=== PATIENT | female | born 1950 | race Hispanic/Latino ===

== ENCOUNTER 2022-08-23 20:14 | Inpatient (IN) | payer OTHER ==
[~2022-08-23] VITALS: Ht 165.1 cm; Wt 47.0 kg
[2022-08-23] MEDS ORDERED: ACETAMINOPHEN 500 MG TABLET ONE (20:46)
[2022-08-23 20:54] LABS: BASOPHILS % (AUTO) 0.1 % (0.0-5.0); EOSINOPHILS % (AUTO) 0.1 % (0.0-8.0); HEMATOCRIT 27.6 % (36-48); LYMPHOCYTES % (AUTO) 9.7 % (21.0-51.0); MEAN CORPUSCULAR HEMOGLOBIN 29.8 pg (27.0-33.0); MEAN CORPUSCULAR HGB CONC 33.7 g/dL (32.0-36.0); MEAN CORPUSCULAR VOLUME 88.5 fL (79-99); MONOCYTES % (AUTO) 8.2 % (3.0-13.0); NEUTROPHILS % (AUTO) 80.7 % (40.0-77.0); PLATELET COUNT (AUTO) 251 K/uL (130-400); RED BLOOD CELL COUNT(AUTO) 3.12 MIL/uL (4.00-5.50); RED CELL DISTRIBUTION WIDTH 14.1 % (11.0-15.5); WHITE BLOOD COUNT (AUTO) 11.9 K/uL (4.8-10.8)
[2022-08-23] MEDS ORDERED: 0.9%NACL 1000ML 1,000 ML IV ONE (21:00)
[2022-08-23] MEDS ORDERED: ACETAMINOPHEN 325 MG TAB PO ONE (21:00)
[2022-08-23] MEDS ORDERED: ONDANSETRON 4MG INJ IVP ONE (21:00)
[2022-08-23 21:07] LABS: CREATININE 3.1 mg/dL (0.5-1.5); POTASSIUM 4.1 mmol/L (3.5-5.1)
[2022-08-23 21:11] LABS: TOTAL PROTEIN, SERUM 9.3 g/dL (6.0-8.3)
[2022-08-23] MEDS ORDERED: CEFTRIAXONE 1G VIAL IVP ONE (21:30)
[2022-08-23 22:01] LABS: APPEARANCE,URINE CLOUDY (CLEAR); COLOR,URINE YELLOW (YELLOW); LEUKOCYTE ESTERASE ,URINE MODERATE Leu/uL (NEGATIVE)
[2022-08-23 22:02] LABS: NITRATE,URINE Negative (NEGATIVE); PROTEIN,URINE >=300 mg/dL (NEGATIVE); UROBILINOGEN,URINE 0.2 mg/dL (0.2-1.0)
[2022-08-23 22:03] LABS: KETONES,URINE 5 mg/dL (NEGATIVE); OCCULT BLOOD,URINE LARGE (NEGATIVE)
[2022-08-23 22:04] LABS: BILIRUBIN,URINE Small mg/dL (NEGATIVE); GLUCOSE, URINE (UA) NEGATIVE (NEGATIVE)
[2022-08-23 22:15] LABS: BACTERIA,URINE Moderate /HPF (None Seen); WBC,URINE 26-50 /HPF (0-1)
[2022-08-23 22:16] LABS: SQUAMOUS EPITHELIAL CELL,UR Rare /HPF (0-2)
[2022-08-23] MEDS ORDERED: 0.9% NACL 250ML 250 ML IV ONE (22:30)
[2022-08-23] MEDS ORDERED: DiphenhydrAMINE HCL 50 MG/ML VIAL IV ONE (22:30)
[2022-08-23] MEDS ORDERED: ACETAMINOPHEN 325 MG TAB PO PRN (23:00)
[2022-08-23] MEDS ORDERED: DiphenhydrAMINE HCL 50 MG/ML VIAL IV PRN (23:00)
[2022-08-23] MEDS ORDERED: ACETAMINOPHEN WITH CODEINE 1 TAB TAB PO PRN (23:00)
[2022-08-23] MEDS ORDERED: MAG/ALUM/SIMETH 30 ML UDCUP PO PRN (23:00)
[2022-08-23] MEDS ORDERED: LACTULOSE 20 GM/30 ML UDCUP PO PRN (23:00)
[2022-08-23] MEDS ORDERED: MORPHINE 4 MG SYG IV PRN (23:00)
[2022-08-23] MEDS ORDERED: CEFTRIAXONE 1G VIAL IV SCH (23:00)
[2022-08-23] MEDS: 0.9%NACL 1000ML 1,000 ML IV SCH (23:11)
[2022-08-24] MEDS ORDERED: 0.9% NACL 500ML IV.SOLN 500 ML IV ONE ×2 (01:11→01:30)
[2022-08-24] MEDS: LEVOFLOXACIN 500 MG/D5W 100 ML 100 ML IV SCH (01:46)
[2022-08-24] MEDS: 0.9% NACL 250ML 250 ML IV SCH ×2 (02:01→03:09)
[2022-08-24 06:13] LABS: HEMATOCRIT 23.2 % (36-48); MEAN CORPUSCULAR HEMOGLOBIN 29.3 pg (27.0-33.0); MEAN CORPUSCULAR HGB CONC 32.3 g/dL (32.0-36.0); MEAN CORPUSCULAR VOLUME 90.6 fL (79-99); RED BLOOD CELL COUNT(AUTO) 2.56 MIL/uL (4.00-5.50); RED CELL DISTRIBUTION WIDTH 14.1 % (11.0-15.5); WHITE BLOOD COUNT (AUTO) 9.5 K/uL (4.8-10.8)
[2022-08-24 06:19] LABS: CREATININE 2.6 mg/dL (0.5-1.5); POTASSIUM 4.2 mmol/L (3.5-5.1)
[2022-08-24] MEDS: FAMOTIDINE 20MG VIAL IV SCH (08:55)
[2022-08-24] MEDS: ONDANSETRON 4MG INJ IV PRN (08:55)
[2022-08-24] MEDS: ENOXAPARIN SODIUM 30 MG/0.3 ML SQ SCH (08:55)
[2022-08-24 09:00] VITALS: BP 113/56
[2022-08-24] MEDS: 0.9%NACL 1000ML 1,000 ML IV SCH ×2 (09:00→19:00)
[2022-08-24 12:00] VITALS: BP 82/45
[2022-08-24 12:05] LABS: ABG BASE EXCESS -11.6 mmol/L (-2.0-3.0); ABG HCO3 10.7 mmol/L (21.0-28.0); ABG OXYGEN SATURATION 97.8 % (95.0-99.0); ABG PCO2 18 mmHg (32-45)
[2022-08-24 14:19] LABS: CREATININE 2.6 mg/dL (0.5-1.5); POTASSIUM 4.1 mmol/L (3.5-5.1)
[2022-08-24 14:30] LABS: % IRON SATURATION 17.5 % (22-44)
[2022-08-24 16:00] VITALS: BP 113/61
[2022-08-24 19:00] VITALS: BP 97/54
[2022-08-24] MEDS: IRON SUCROSE COMPLEX 100 MG/5 ML VIAL IVP SCH (19:22)
[2022-08-24] MEDS: ACETAMINOPHEN 325 MG TAB PO PRN (20:32)
[2022-08-24 23:49] VITALS: BP 92/50
[2022-08-25] VITALS (12 sets, daily range): BP systolic 92–147; BP diastolic 37–66
[2022-08-25] MEDS: LEVOFLOXACIN 500 MG/D5W 100 ML 100 ML IV SCH (00:09)
[2022-08-25] MEDS: 0.9%NACL 1000ML 1,000 ML IV SCH ×2 (04:38→15:00)
[2022-08-25 08:22] LABS: INR 1.23 (0.85-1.15); PROTHROMBIN TIME 13.2 SEC (9.6-11.6)
[2022-08-25 08:23] LABS: PARTIAL THROMBOPLASTIN TIME 35.9 SEC (26.3-35.5)
[2022-08-25] MEDS ORDERED: IRON SUCROSE COMPLEX 100 MG in 0.9%NACL 50ML 50 ML IV SCH (09:00)
[2022-08-25] MEDS: ENOXAPARIN SODIUM 30 MG/0.3 ML SQ SCH (09:00)
[2022-08-25] MEDS: MEROPENEM 500 MG VIAL IVP SCH ×2 (10:00→10:37)
[2022-08-25] MEDS: IRON SUCROSE COMPLEX 100 MG/5 ML VIAL IVP SCH (10:36)
[2022-08-25] MEDS: FAMOTIDINE 20MG VIAL IV SCH (10:37)
[2022-08-25] MEDS ORDERED: LIDOCAINE HCL 1% 20 ML VIAL ONE (14:21)
[2022-08-25] MEDS ORDERED: IODIXANOL 320 MG/ML 100 ML VIAL ONE (14:21)
[2022-08-25] MEDS ORDERED: FENTANYL CITRATE PF 50 MCG/1 ML 2ML VIAL ONE (14:22)
[2022-08-25] MEDS ORDERED: MIDAZOLAM HCL 1 MG/ML 2ML VIAL ONE (14:22)
[2022-08-25 15:37] LABS: APPEARANCE,URINE TURBID (CLEAR); BILIRUBIN,URINE NEGATIVE (NEGATIVE); COLOR,URINE LIGHT-ORANGE (YELLOW); GLUCOSE, URINE (UA) NEGATIVE (NEGATIVE); KETONES,URINE NEGATIVE (NEGATIVE); LEUKOCYTE ESTERASE ,URINE 500 Leu/uL (NEGATIVE); NITRATE,URINE NEGATIVE (NEGATIVE); OCCULT BLOOD,URINE LARGE (NEGATIVE); PROTEIN,URINE 70 mg/dL (NEGATIVE); UROBILINOGEN,URINE 0.2 mg/dL (0.2-1.0)
[2022-08-25 15:50] LABS: BACTERIA,URINE MOD /HPF (None Seen); MUCUS,URINE MANY LPF (None Seen); OTHER CASTS, URINE 153 /LPF (None Seen); RBC,URINE TNTC /HPF (0-1); TRANSITIONAL EPI CELLS,URINE FEW /HPF (None Seen); WBC,URINE TNTC /HPF (0-1)
[2022-08-25] MEDS: MEROPENEM 1 GM VIAL IVPB SCH (22:02)
[2022-08-25] MEDS: ACETAMINOPHEN 325 MG TAB PO PRN (22:03)
[2022-08-26] VITALS: BP 119/52
[2022-08-26] MEDS ORDERED: MEROPENEM 500 MG VIAL IVP SCH (02:00)
[2022-08-26 04:00] VITALS: BP 108/46
[2022-08-26 04:52] LABS: BASOPHILS % (AUTO) 0.2 % (0.0-5.0); EOSINOPHILS % (AUTO) 0.5 % (0.0-8.0); HEMATOCRIT 21.9 % (36-48); LYMPHOCYTES % (AUTO) 21.6 % (21.0-51.0); MEAN CORPUSCULAR HGB CONC 33.3 g/dL (32.0-36.0); MEAN CORPUSCULAR VOLUME 90.1 fL (79-99); MONOCYTES % (AUTO) 11.2 % (3.0-13.0); NEUTROPHILS % (AUTO) 63.2 % (40.0-77.0); PLATELET COUNT (AUTO) 139 K/uL (130-400); RED BLOOD CELL COUNT(AUTO) 2.43 MIL/uL (4.00-5.50); WHITE BLOOD COUNT (AUTO) 6.2 K/uL (4.8-10.8)
[2022-08-26 05:08] LABS: CREATININE 2.4 mg/dL (0.5-1.5); MAGNESIUM 1.4 mg/dL (1.80-2.40); PHOSPHORUS 5.1 mg/dL (2.5-4.9); POTASSIUM 3.2 mmol/L (3.5-5.1)
[2022-08-26] MEDS: MEROPENEM 1 GM VIAL IVPB SCH ×2 (06:37→19:58)
[2022-08-26 07:30] VITALS: BP 112/53
[2022-08-26] MEDS: IRON SUCROSE COMPLEX 100 MG/5 ML VIAL IVP SCH (09:01)
[2022-08-26] MEDS: FAMOTIDINE 20MG VIAL IV SCH (09:01)
[2022-08-26] MEDS: ENOXAPARIN SODIUM 30 MG/0.3 ML SQ SCH (09:02)
[2022-08-26 10:35] VITALS: BP 113/59
[2022-08-26 16:15] VITALS: BP 117/57
[2022-08-26] MEDS ORDERED: POTASSIUM CHLORIDE 20MEQ/100ML 100 ML IV PRN (17:30)
[2022-08-26] MEDS ORDERED: POTASSIUM CHLORIDE 10% ELIXIR 20 MEQ/15 ML UDCUP PO PRN (17:30)
[2022-08-26] MEDS ORDERED: LIDOCAINE HCL-MPF 1% 2ML VIAL IV PRN (17:30)
[2022-08-26] MEDS: KCL 20 MEQ ERTAB PO PRN ×3 (17:36→22:00)
[2022-08-26] MEDS: MAGNESIUM 2GM PREMIX 50ML 50 ML IV PRN (17:36)
[2022-08-26] MEDS: 0.9%NACL 1000ML 1,000 ML IV SCH (19:59)
[2022-08-26 20:00] VITALS: BP 111/55
[2022-08-27] VITALS: BP 114/61
[2022-08-27 04:39] LABS: BASOPHILS % (AUTO) 0.2 % (0.0-5.0); EOSINOPHILS % (AUTO) 0.2 % (0.0-8.0); HEMATOCRIT 21.4 % (36-48); MEAN CORPUSCULAR HEMOGLOBIN 30.1 pg (27.0-33.0); MEAN CORPUSCULAR HGB CONC 33.2 g/dL (32.0-36.0); MEAN CORPUSCULAR VOLUME 90.7 fL (79-99); MONOCYTES % (AUTO) 13.5 % (3.0-13.0); NEUTROPHILS % (AUTO) 46.9 % (40.0-77.0); PLATELET COUNT (AUTO) 120 K/uL (130-400); RED BLOOD CELL COUNT(AUTO) 2.36 MIL/uL (4.00-5.50); RED CELL DISTRIBUTION WIDTH 15.1 % (11.0-15.5); WHITE BLOOD COUNT (AUTO) 4.8 K/uL (4.8-10.8)
[2022-08-27 04:44] LABS: POTASSIUM 3.8 mmol/L (3.5-5.1)
[2022-08-27 05:04] VITALS: BP 102/59
[2022-08-27 08:00] VITALS: BP 98/57
[2022-08-27] MEDS: FAMOTIDINE 20MG VIAL IV SCH (08:42)
[2022-08-27] MEDS: IRON SUCROSE COMPLEX 100 MG/5 ML VIAL IVP SCH (08:42)
[2022-08-27] MEDS: MEROPENEM 1 GM VIAL IVPB SCH ×2 (08:43→20:08)
[2022-08-27] MEDS: ENOXAPARIN SODIUM 30 MG/0.3 ML SQ SCH (08:43)
[2022-08-27] MEDS: 0.9%NACL 1000ML 1,000 ML IV SCH ×2 (08:43→17:56)
[2022-08-27 12:00] VITALS: BP 120/65
[2022-08-27 16:00] VITALS: BP 108/61
[2022-08-27 19:52] VITALS: BP 121/62
[2022-08-27] MEDS: TRAZODONE HCL 100 MG TABLET PO SCH (20:08)
[2022-08-28] VITALS: BP 126/66
[2022-08-28] MEDS: 0.9%NACL 1000ML 1,000 ML IV SCH ×2 (02:17→17:19)
[2022-08-28 04:00] VITALS: BP 122/58
[2022-08-28 05:49] LABS: BASOPHILS % (AUTO) 0.2 % (0.0-5.0); EOSINOPHILS % (AUTO) 1.1 % (0.0-8.0); HEMATOCRIT 22.6 % (36-48); LYMPHOCYTES % (AUTO) 31.7 % (21.0-51.0); MEAN CORPUSCULAR HEMOGLOBIN 29.4 pg (27.0-33.0); MEAN CORPUSCULAR HGB CONC 31.9 g/dL (32.0-36.0); MEAN CORPUSCULAR VOLUME 92.2 fL (79-99); MONOCYTES % (AUTO) 12.5 % (3.0-13.0); NEUTROPHILS % (AUTO) 48.9 % (40.0-77.0); PLATELET COUNT (AUTO) 109 K/uL (130-400); RED BLOOD CELL COUNT(AUTO) 2.45 MIL/uL (4.00-5.50); WHITE BLOOD COUNT (AUTO) 4.6 K/uL (4.8-10.8)
[2022-08-28 06:00] LABS: CREATININE 1.6 mg/dL (0.5-1.5); POTASSIUM 3.7 mmol/L (3.5-5.1)
[2022-08-28] MEDS: KCL 20 MEQ ERTAB PO PRN ×2 (06:11→17:18)
[2022-08-28 08:00] VITALS: BP 105/58
[2022-08-28] MEDS: FAMOTIDINE 20MG VIAL IV SCH (08:58)
[2022-08-28] MEDS: IRON SUCROSE COMPLEX 100 MG/5 ML VIAL IVP SCH (08:58)
[2022-08-28] MEDS: MEROPENEM 1 GM VIAL IVPB SCH ×2 (08:58→20:27)
[2022-08-28] MEDS: ENOXAPARIN SODIUM 30 MG/0.3 ML SQ SCH (08:59)
[2022-08-28 12:00] VITALS: BP 106/52
[2022-08-28 16:00] VITALS: BP 103/57
[2022-08-28] MEDS: TRAZODONE HCL 100 MG TABLET PO SCH (20:27)
[2022-08-28 20:47] VITALS: BP 104/60
[2022-08-29] VITALS (7 sets, daily range): BP systolic 85–118; BP diastolic 48–67
[2022-08-29 04:47] LABS: BASOPHILS % (AUTO) 0.2 % (0.0-5.0); HEMATOCRIT 21.5 % (36-48); LYMPHOCYTES % (AUTO) 32.7 % (21.0-51.0); MEAN CORPUSCULAR HEMOGLOBIN 30.1 pg (27.0-33.0); MEAN CORPUSCULAR VOLUME 91.1 fL (79-99); MONOCYTES % (AUTO) 11.3 % (3.0-13.0); NEUTROPHILS % (AUTO) 49.4 % (40.0-77.0); PLATELET COUNT (AUTO) 105 K/uL (130-400); RED BLOOD CELL COUNT(AUTO) 2.36 MIL/uL (4.00-5.50); RED CELL DISTRIBUTION WIDTH 14.8 % (11.0-15.5); WHITE BLOOD COUNT (AUTO) 5.5 K/uL (4.8-10.8)
[2022-08-29 04:57] LABS: CREATININE 1.5 mg/dL (0.5-1.5); MAGNESIUM 1.4 mg/dL (1.80-2.40); PHOSPHORUS 2.8 mg/dL (2.5-4.9); POTASSIUM 4.4 mmol/L (3.5-5.1)
[2022-08-29] MEDS: 0.9%NACL 1000ML 1,000 ML IV SCH ×2 (05:16→08:42)
[2022-08-29] MEDS: MEROPENEM 1 GM VIAL IVPB SCH ×2 (08:40→20:50)
[2022-08-29] MEDS: FAMOTIDINE 20MG VIAL IV SCH (08:40)
[2022-08-29] MEDS: IRON SUCROSE COMPLEX 100 MG/5 ML VIAL IVP SCH (08:40)
[2022-08-29] MEDS: MAGNESIUM 2GM PREMIX 50ML 50 ML IV PRN (08:41)
[2022-08-29] MEDS: ENOXAPARIN SODIUM 30 MG/0.3 ML SQ SCH (08:43)
[2022-08-29] MEDS: TRAZODONE HCL 100 MG TABLET PO SCH (20:50)
[2022-08-30 01:34] VITALS: BP 117/57
[2022-08-30 04:20] VITALS: BP 111/56
[2022-08-30 04:46] LABS: BASOPHILS % (AUTO) 0.3 % (0.0-5.0); EOSINOPHILS % (AUTO) 3.8 % (0.0-8.0); MEAN CORPUSCULAR HEMOGLOBIN 29.7 pg (27.0-33.0); MEAN CORPUSCULAR HGB CONC 32.7 g/dL (32.0-36.0); MONOCYTES % (AUTO) 11.8 % (3.0-13.0); NEUTROPHILS % (AUTO) 34.8 % (40.0-77.0); PLATELET COUNT (AUTO) 94 K/uL (130-400); RED BLOOD CELL COUNT(AUTO) 2.22 MIL/uL (4.00-5.50); RED CELL DISTRIBUTION WIDTH 14.6 % (11.0-15.5); WHITE BLOOD COUNT (AUTO) 3.9 K/uL (4.8-10.8)
[2022-08-30 04:48] LABS: HEMATOCRIT 20.2 % (36-48)
[2022-08-30] MEDS: 0.9%NACL 1000ML 1,000 ML IV SCH ×2 (05:00→05:58)
[2022-08-30 05:04] LABS: CREATININE 1.5 mg/dL (0.5-1.5)
[2022-08-30] MEDS: MEROPENEM 1 GM VIAL IVPB SCH ×2 (05:58→21:45)
[2022-08-30 08:00] VITALS: BP 105/50
[2022-08-30 08:34] LABS: HEMATOCRIT 21.1 % (36-48)
[2022-08-30] MEDS: FAMOTIDINE 20MG VIAL IV SCH (09:53)
[2022-08-30] MEDS: IRON SUCROSE COMPLEX 100 MG/5 ML VIAL IVP SCH (09:53)
[2022-08-30] MEDS: ENOXAPARIN SODIUM 30 MG/0.3 ML SQ SCH (09:54)
[2022-08-30 12:00] VITALS: BP 131/63
[2022-08-30 16:00] VITALS: BP 105/54
[2022-08-30 20:00] VITALS: BP 116/51
[2022-08-30] MEDS: TRAZODONE HCL 100 MG TABLET PO SCH (21:45)
[2022-08-30] MEDS: MAGNESIUM 2GM PREMIX 50ML 50 ML IV PRN (21:46)
[2022-08-31] VITALS: BP 113/61
[2022-08-31 04:00] VITALS: BP 114/59
[2022-08-31 04:32] LABS: BASOPHILS % (AUTO) 0.2 % (0.0-5.0); EOSINOPHILS % (AUTO) 3.5 % (0.0-8.0); HEMATOCRIT 21.5 % (36-48); MEAN CORPUSCULAR HEMOGLOBIN 30.2 pg (27.0-33.0); MEAN CORPUSCULAR HGB CONC 32.6 g/dL (32.0-36.0); MEAN CORPUSCULAR VOLUME 92.7 fL (79-99); MONOCYTES % (AUTO) 10.4 % (3.0-13.0); NEUTROPHILS % (AUTO) 33.4 % (40.0-77.0); PLATELET COUNT (AUTO) 119 K/uL (130-400); RED BLOOD CELL COUNT(AUTO) 2.32 MIL/uL (4.00-5.50); RED CELL DISTRIBUTION WIDTH 14.7 % (11.0-15.5)
[2022-08-31 04:55] LABS: % IRON SATURATION 111.6 % (22-44)
[2022-08-31 05:10] LABS: CARBON DIOXIDE 20 mmol/L (21-32); CHLORIDE 109 mmol/L (101-111); CREATININE 1.3 mg/dL (0.5-1.5); GLOMERULAR FILTR. RATE CALC 43 mL/min (>60); GLUCOSE,RANDOM 83 mg/dL (70-105); POTASSIUM 4.3 mmol/L (3.5-5.1); SODIUM SERUM 136 mmol/L (136-145); THYROID STIMULATING HORMONE 7.13 uIU/mL (0.36-3.74); UREA NITROGEN, BLOOD 15 mg/dL (7-18)
[2022-08-31] MEDS: MEROPENEM 1 GM VIAL IVPB SCH ×2 (06:02→21:53)
[2022-08-31 08:00] VITALS: BP 108/52
[2022-08-31] MEDS: IRON SUCROSE COMPLEX 100 MG/5 ML VIAL IVP SCH (09:00)
[2022-08-31] MEDS: FAMOTIDINE 20MG VIAL IV SCH (09:00)
[2022-08-31] MEDS: ENOXAPARIN SODIUM 30 MG/0.3 ML SQ SCH (09:00)
[2022-08-31 12:00] VITALS: BP 91/53
[2022-08-31] MEDS ORDERED: DULOXETINE HCL 30 MG CAP PO SCH (14:30)
[2022-08-31 16:00] VITALS: BP 99/57
[2022-08-31 20:00] VITALS: BP 133/64
[2022-08-31] MEDS: TRAZODONE HCL 100 MG TABLET PO SCH (21:53)
[2022-08-31] MEDS: BISACODYL 5 MG TABLET.DR PO SCH (21:53)
[2022-09-01] VITALS: BP 129/67
[2022-09-01 04:00] VITALS: BP 132/72
[2022-09-01 04:36] LABS: BASOPHILS % (AUTO) 0.1 % (0.0-5.0); EOSINOPHILS % (AUTO) 1.7 % (0.0-8.0); HEMATOCRIT 24.5 % (36-48); LYMPHOCYTES % (AUTO) 26.6 % (21.0-51.0); MEAN CORPUSCULAR HEMOGLOBIN 30.8 pg (27.0-33.0); MEAN CORPUSCULAR HGB CONC 33.5 g/dL (32.0-36.0); MEAN CORPUSCULAR VOLUME 92.1 fL (79-99); MONOCYTES % (AUTO) 6.4 % (3.0-13.0); NEUTROPHILS % (AUTO) 63.5 % (40.0-77.0); PLATELET COUNT (AUTO) 133 K/uL (130-400); RED BLOOD CELL COUNT(AUTO) 2.66 MIL/uL (4.00-5.50); RED CELL DISTRIBUTION WIDTH 14.2 % (11.0-15.5); WHITE BLOOD COUNT (AUTO) 6.9 K/uL (4.8-10.8)
[2022-09-01 04:44] LABS: CREATININE 1.6 mg/dL (0.5-1.5); POTASSIUM 4.2 mmol/L (3.5-5.1)
[2022-09-01] MEDS: LEVOTHYROXINE 25 MCG TABLET PO SCH (06:34)
[2022-09-01 07:45] VITALS: BP 100/57
[2022-09-01] MEDS: ONDANSETRON 4MG INJ IV PRN (08:21)
[2022-09-01] MEDS: MEROPENEM 1 GM VIAL IVPB SCH ×2 (08:40→20:14)
[2022-09-01] MEDS: IRON SUCROSE COMPLEX 100 MG/5 ML VIAL IVP SCH (08:40)
[2022-09-01] MEDS: FAMOTIDINE 20MG VIAL IV SCH (08:40)
[2022-09-01] MEDS: DULOXETINE HCL 30 MG CAP PO SCH (08:41)
[2022-09-01] MEDS: ENOXAPARIN SODIUM 30 MG/0.3 ML SQ SCH (08:41)
[2022-09-01] MEDS: DRONABINOL 2.5 MG CAP PO SCH (08:41)
[2022-09-01] MEDS: BISACODYL 5 MG TABLET.DR PO SCH ×2 (09:00→20:14)
[2022-09-01 10:45] VITALS: BP 107/54
[2022-09-01 15:30] VITALS: BP 110/56
[2022-09-01 20:00] VITALS: BP 129/63
[2022-09-01] MEDS: TRAZODONE HCL 100 MG TABLET PO SCH (20:14)
[2022-09-02] VITALS (7 sets, daily range): BP systolic 98–119; BP diastolic 45–76
[2022-09-02] MEDS: LEVOTHYROXINE 25 MCG TABLET PO SCH (06:24)
[2022-09-02] MEDS: MEROPENEM 1 GM VIAL IVPB SCH ×2 (06:25→21:27)
[2022-09-02] MEDS: BISACODYL 5 MG TABLET.DR PO SCH ×2 (09:00→21:00)
[2022-09-02] MEDS: FAMOTIDINE 20MG VIAL IV SCH (09:32)
[2022-09-02] MEDS: IRON SUCROSE COMPLEX 100 MG/5 ML VIAL IVP SCH (09:32)
[2022-09-02] MEDS: DULOXETINE HCL 30 MG CAP PO SCH (09:33)
[2022-09-02] MEDS: DRONABINOL 2.5 MG CAP PO SCH (09:33)
[2022-09-02] MEDS: ENOXAPARIN SODIUM 30 MG/0.3 ML SQ SCH (09:33)
[2022-09-02 17:11] LABS: BASOPHILS % (AUTO) 0.2 % (0.0-5.0); EOSINOPHILS % (AUTO) 2.3 % (0.0-8.0); HEMATOCRIT 26.7 % (36-48); LYMPHOCYTES % (AUTO) 37.9 % (21.0-51.0); MEAN CORPUSCULAR HEMOGLOBIN 30.8 pg (27.0-33.0); MEAN CORPUSCULAR VOLUME 93.4 fL (79-99); MONOCYTES % (AUTO) 8.8 % (3.0-13.0); NEUTROPHILS % (AUTO) 49.5 % (40.0-77.0); PLATELET COUNT (AUTO) 163 K/uL (130-400); RED BLOOD CELL COUNT(AUTO) 2.86 MIL/uL (4.00-5.50); WHITE BLOOD COUNT (AUTO) 5.3 K/uL (4.8-10.8)
[2022-09-02 17:19] LABS: CREATININE 1.5 mg/dL (0.5-1.5); POTASSIUM 4.1 mmol/L (3.5-5.1)
[2022-09-02 17:23] LABS: ALBUMIN 1.6 g/dL (3.5-5.0); TOTAL PROTEIN, SERUM 7.2 g/dL (6.0-8.3)
[2022-09-02] MEDS: TRAZODONE HCL 100 MG TABLET PO SCH (21:27)
[2022-09-03] VITALS (7 sets, daily range): BP systolic 103–138; BP diastolic 55–69
[2022-09-03 05:36] LABS: BASOPHILS % (AUTO) 0.3 % (0.0-5.0); HEMATOCRIT 26.2 % (36-48); LYMPHOCYTES % (AUTO) 38.4 % (21.0-51.0); MEAN CORPUSCULAR HGB CONC 33.6 g/dL (32.0-36.0); MEAN CORPUSCULAR VOLUME 92.3 fL (79-99); MONOCYTES % (AUTO) 7.7 % (3.0-13.0); NEUTROPHILS % (AUTO) 50.6 % (40.0-77.0); PLATELET COUNT (AUTO) 170 K/uL (130-400); RED BLOOD CELL COUNT(AUTO) 2.84 MIL/uL (4.00-5.50); RED CELL DISTRIBUTION WIDTH 13.9 % (11.0-15.5); WHITE BLOOD COUNT (AUTO) 5.9 K/uL (4.8-10.8)
[2022-09-03 05:51] LABS: ALBUMIN 1.6 g/dL (3.5-5.0); CREATININE 1.3 mg/dL (0.5-1.5); POTASSIUM 4.5 mmol/L (3.5-5.1); TOTAL PROTEIN, SERUM 7.2 g/dL (6.0-8.3)
[2022-09-03] MEDS: LEVOTHYROXINE 25 MCG TABLET PO SCH (06:33)
[2022-09-03] MEDS: MEROPENEM 1 GM VIAL IVPB SCH ×2 (06:33→19:55)
[2022-09-03] MEDS: ENOXAPARIN SODIUM 30 MG/0.3 ML SQ SCH (08:09)
[2022-09-03] MEDS: FAMOTIDINE 20MG VIAL IV SCH (08:09)
[2022-09-03] MEDS: IRON SUCROSE COMPLEX 100 MG/5 ML VIAL IVP SCH (08:09)
[2022-09-03] MEDS: DULOXETINE HCL 30 MG CAP PO SCH (08:10)
[2022-09-03] MEDS: DRONABINOL 2.5 MG CAP PO SCH (08:10)
[2022-09-03] MEDS: BISACODYL 5 MG TABLET.DR PO SCH ×2 (08:10→19:20)
[2022-09-03] MEDS: TRAZODONE HCL 100 MG TABLET PO SCH (19:55)
[2022-09-04] VITALS (7 sets, daily range): BP systolic 86–105; BP diastolic 46–54
[2022-09-04] MEDS: LEVOTHYROXINE 25 MCG TABLET PO SCH (06:28)
[2022-09-04] MEDS: MEROPENEM 1 GM VIAL IVPB SCH ×2 (06:28→18:50)
[2022-09-04] MEDS: DULOXETINE HCL 30 MG CAP PO SCH (09:00)
[2022-09-04] MEDS: BISACODYL 5 MG TABLET.DR PO SCH ×2 (11:24→21:45)
[2022-09-04] MEDS: FAMOTIDINE 20MG VIAL IV SCH (11:24)
[2022-09-04] MEDS: DRONABINOL 2.5 MG CAP PO SCH ×3 (11:24→21:45)
[2022-09-04] MEDS: IRON SUCROSE COMPLEX 100 MG/5 ML VIAL IVP SCH (11:24)
[2022-09-04] MEDS: ENOXAPARIN SODIUM 30 MG/0.3 ML SQ SCH (11:25)
[2022-09-04] MEDS ORDERED: EPOETIN ALFA-EPBX (NON-ESRD) 10,000 UNIT/ML VIAL SQ SCH (11:30)
[2022-09-04] MEDS ORDERED: 0.9%NACL 1000ML 1,000 ML IV SCH (11:30)
[2022-09-04] MEDS ORDERED: COMPOUND IV REFRIGERATED 1 EACH IVSOLN MISC PRN (11:30)
[2022-09-04 11:53] LABS: BASOPHILS % (AUTO) 0.5 % (0.0-5.0); EOSINOPHILS % (AUTO) 3.4 % (0.0-8.0); HEMATOCRIT 27.6 % (36-48); LYMPHOCYTES % (AUTO) 41.7 % (21.0-51.0); MEAN CORPUSCULAR HEMOGLOBIN 30.8 pg (27.0-33.0); MEAN CORPUSCULAR HGB CONC 31.9 g/dL (32.0-36.0); MEAN CORPUSCULAR VOLUME 96.5 fL (79-99); MONOCYTES % (AUTO) 8.7 % (3.0-13.0); PLATELET COUNT (AUTO) 185 K/uL (130-400); RED BLOOD CELL COUNT(AUTO) 2.86 MIL/uL (4.00-5.50); RED CELL DISTRIBUTION WIDTH 14.5 % (11.0-15.5); WHITE BLOOD COUNT (AUTO) 4.4 K/uL (4.8-10.8)
[2022-09-04 12:01] LABS: CREATININE 1.2 mg/dL (0.5-1.5); POTASSIUM 4.4 mmol/L (3.5-5.1)
[2022-09-04 12:04] LABS: MAGNESIUM 1.8 mg/dL (1.80-2.40); PHOSPHORUS 3.1 mg/dL (2.5-4.9)
[2022-09-04 12:14] LABS: % IRON SATURATION 70.1 % (22-44)
[2022-09-04] MEDS: FAMOTIDINE 20MG TAB PO SCH (14:16)
[2022-09-04] MEDS: FOLIC ACID 5 MG/ML VIAL IV SCH (14:44)
[2022-09-04] MEDS: TRAZODONE HCL 100 MG TABLET PO SCH (21:45)
[2022-09-05] VITALS: BP 101/52
[2022-09-05 03:45] VITALS: BP 105/53
[2022-09-05 05:48] LABS: BASOPHILS % (AUTO) 0.2 % (0.0-5.0); EOSINOPHILS % (AUTO) 3.1 % (0.0-8.0); HEMATOCRIT 26.7 % (36-48); LYMPHOCYTES % (AUTO) 36.5 % (21.0-51.0); MEAN CORPUSCULAR HEMOGLOBIN 31.2 pg (27.0-33.0); MEAN CORPUSCULAR HGB CONC 32.2 g/dL (32.0-36.0); MEAN CORPUSCULAR VOLUME 96.7 fL (79-99); NEUTROPHILS % (AUTO) 50.6 % (40.0-77.0); PLATELET COUNT (AUTO) 176 K/uL (130-400); RED BLOOD CELL COUNT(AUTO) 2.76 MIL/uL (4.00-5.50); RED CELL DISTRIBUTION WIDTH 14.7 % (11.0-15.5); WHITE BLOOD COUNT (AUTO) 5.2 K/uL (4.8-10.8)
[2022-09-05 05:59] LABS: ALBUMIN 1.7 g/dL (3.5-5.0); CREATININE 1.1 mg/dL (0.5-1.5); POTASSIUM 4.7 mmol/L (3.5-5.1)
[2022-09-05] MEDS: MEROPENEM 1 GM VIAL IVPB SCH ×2 (06:43→18:23)
[2022-09-05] MEDS: LEVOTHYROXINE 25 MCG TABLET PO SCH (06:43)
[2022-09-05 08:00] VITALS: BP 122/58
[2022-09-05] MEDS: FOLIC ACID 5 MG/ML VIAL IV SCH (10:06)
[2022-09-05] MEDS: BISACODYL 5 MG TABLET.DR PO SCH ×2 (10:28→20:57)
[2022-09-05] MEDS: DRONABINOL 2.5 MG CAP PO SCH ×2 (10:29→20:57)
[2022-09-05] MEDS: FAMOTIDINE 20MG TAB PO SCH (10:29)
[2022-09-05] MEDS: DULOXETINE HCL 30 MG CAP PO SCH (10:29)
[2022-09-05] MEDS: ENOXAPARIN SODIUM 30 MG/0.3 ML SQ SCH (10:29)
[2022-09-05 11:00] VITALS: BP 74/43
[2022-09-05 16:00] VITALS: BP 114/63
[2022-09-05 20:18] VITALS: BP 109/56
[2022-09-05] MEDS: TRAZODONE HCL 100 MG TABLET PO SCH (20:57)
[2022-09-06 00:03] VITALS: BP 91/51
[2022-09-06 04:11] VITALS: BP 92/55
[2022-09-06] MEDS: LEVOTHYROXINE 25 MCG TABLET PO SCH (06:23)
[2022-09-06 07:00] VITALS: BP 100/57
[2022-09-06] MEDS: ENOXAPARIN SODIUM 30 MG/0.3 ML SQ SCH (08:30)
[2022-09-06] MEDS: MEROPENEM 1 GM VIAL IVPB SCH ×2 (08:30→19:58)
[2022-09-06] MEDS: BISACODYL 5 MG TABLET.DR PO SCH ×2 (08:31→19:58)
[2022-09-06] MEDS: DULOXETINE HCL 30 MG CAP PO SCH (08:31)
[2022-09-06] MEDS: FAMOTIDINE 20MG TAB PO SCH (08:31)
[2022-09-06] MEDS: DRONABINOL 2.5 MG CAP PO SCH ×2 (08:31→19:58)
[2022-09-06] MEDS: FOLIC ACID 5 MG/ML VIAL IV SCH (10:36)
[2022-09-06 11:00] VITALS: BP 85/46
[2022-09-06 16:00] VITALS: BP 103/55
[2022-09-06] MEDS: TRAZODONE HCL 100 MG TABLET PO SCH (19:58)
[2022-09-06 20:00] VITALS: BP 108/61
[2022-09-07] VITALS (7 sets, daily range): BP systolic 80–114; BP diastolic 45–64
[2022-09-07] MEDS: LEVOTHYROXINE 25 MCG TABLET PO SCH (05:30)
[2022-09-07 06:17] LABS: BASOPHILS % (AUTO) 0.4 % (0.0-5.0); EOSINOPHILS % (AUTO) 4.7 % (0.0-8.0); HEMATOCRIT 29.2 % (36-48); LYMPHOCYTES % (AUTO) 39.9 % (21.0-51.0); MEAN CORPUSCULAR HEMOGLOBIN 31.5 pg (27.0-33.0); MEAN CORPUSCULAR HGB CONC 31.2 g/dL (32.0-36.0); MONOCYTES % (AUTO) 11.9 % (3.0-13.0); NEUTROPHILS % (AUTO) 41.7 % (40.0-77.0); PLATELET COUNT (AUTO) 209 K/uL (130-400); RED BLOOD CELL COUNT(AUTO) 2.89 MIL/uL (4.00-5.50); RED CELL DISTRIBUTION WIDTH 15.3 % (11.0-15.5); WHITE BLOOD COUNT (AUTO) 4.9 K/uL (4.8-10.8)
[2022-09-07 06:41] LABS: CREATININE 1.3 mg/dL (0.5-1.5)
[2022-09-07] MEDS: FOLIC ACID 5 MG/ML VIAL IV SCH (08:09)
[2022-09-07] MEDS: DULOXETINE HCL 30 MG CAP PO SCH (08:10)
[2022-09-07] MEDS: DRONABINOL 2.5 MG CAP PO SCH ×2 (08:10→19:22)
[2022-09-07] MEDS: ENOXAPARIN SODIUM 30 MG/0.3 ML SQ SCH (08:10)
[2022-09-07] MEDS: BISACODYL 5 MG TABLET.DR PO SCH ×2 (08:10→19:22)
[2022-09-07] MEDS: FAMOTIDINE 20MG TAB PO SCH (08:10)
[2022-09-07] MEDS: MEROPENEM 1 GM VIAL IVPB SCH ×2 (08:11→19:22)
[2022-09-07] MEDS: TRAZODONE HCL 100 MG TABLET PO SCH (19:22)
[2022-09-08 04:13] VITALS: BP 110/59
[2022-09-08] MEDS: LEVOTHYROXINE 25 MCG TABLET PO SCH (05:27)
[2022-09-08 08:00] VITALS: BP_SYST 111; BP_SYST 143; BP_DIAS 60; BP_DIAS 76
[2022-09-08] MEDS: DULOXETINE HCL 30 MG CAP PO SCH (08:16)
[2022-09-08] MEDS: DRONABINOL 2.5 MG CAP PO SCH (08:16)
[2022-09-08] MEDS: BISACODYL 5 MG TABLET.DR PO SCH (08:16)
[2022-09-08] MEDS: ENOXAPARIN SODIUM 30 MG/0.3 ML SQ SCH (08:16)
[2022-09-08] MEDS: FAMOTIDINE 20MG TAB PO SCH (08:16)
[2022-09-08] MEDS: MEROPENEM 1 GM VIAL IVPB SCH (08:17)
[2022-09-08] MEDS: FOLIC ACID 5 MG/ML VIAL IV SCH (11:12)
[2022-09-08 11:42] VITALS: BP 103/58
[2022-09-08] MEDS ORDERED: DULO30CA2 PO (15:14)
[2022-09-08] MEDS ORDERED: LEVO25TA9 PO (15:14)
[2022-09-08 16:00] VITALS: BP 107/58
== END 2022-09-08 16:25 | disposition home or self-care (01) | DRG 871 ==
LOC: EDH 20:14 → EDHIP 20:15 → 4CH 08-24 04:31 → 3CH 09-04 16:45
PROVIDERS: ADMIT Internal Medicine; ATTEND Internal Medicine
PROC: 0T9030Z Drainage of Right Kidney with Drainage Device, Percutaneous Approach (ICD-10-PCS; principal; 2022-08-25)
PROC: 30233N1 Transfusion of Nonautologous Red Blood Cells into Peripheral Vein, Percutaneous Approach (ICD-10-PCS; 2022-08-31)
DX: A41.51 Sepsis due to Escherichia coli [E. coli] (principal); E43 Unspecified severe protein-calorie malnutrition; E87.1 Hypo-osmolality and hyponatremia; N17.9 Acute kidney failure, unspecified; Z68.1 Body mass index [BMI] 19.9 or less, adult; Z20.822 Contact with and (suspected) exposure to COVID-19; E44.0 Moderate protein-calorie malnutrition; N13.6 Pyonephrosis; Z16.12 Extended spectrum beta lactamase (ESBL) resistance; K43.9 Ventral hernia without obstruction or gangrene; I12.9 Hypertensive chronic kidney disease with stage 1 through stage 4 chronic kidney disease, or unspecified chronic kidney disease; N18.9 Chronic kidney disease, unspecified; D50.9 Iron deficiency anemia, unspecified; F32.A Depression, unspecified; E03.9 Hypothyroidism, unspecified; D63.0 Anemia in neoplastic disease; R31.0 Gross hematuria; Z79.899 Other long term (current) drug therapy; Z91.199 Patient's noncompliance with other medical treatment and regimen due to unspecified reason; Z93.3 Colostomy status; Z85.048 Personal history of other malignant neoplasm of rectum, rectosigmoid junction, and anus; Z92.3 Personal history of irradiation; Z93.6 Other artificial openings of urinary tract status
CPT/HCPCS: 10030; 36415; 36430; 36600; 50430; 50432; 71045; 74176; 76770; 80048; 80053; 81001; 82040; 82378; 82607; 82728; 82746; 82803; 82948; 83540; 83550; 83605; 83735; 83930; 83935; 84100; 84134; 84145; 84300; 84443; 84484; 84702; 85014; 85018; 85025; 85027; 85045; 85610; 85730; 86304; 86305; 86850; 86900; 86901; 86923; 87040; 87077; 87088; 87186; 87635; 87804; 93005; 97039; 99156; 99291; C1894; C9803; G0378; J0696; J1200; J1644; J1650; J1756; J1956; J2185; J2250; J2270; J2405; J3010; J3475; J3490; J7030; J7040; J7050; P9016; Q0167; Q9967

== ENCOUNTER 2022-09-16 08:21 | Emergency (ER) | payer OTHER ==
[~2022-09-16] VITALS: Ht 152.4 cm; Wt 45.4 kg
[~2022-09-16 08:21] MED LIST: DULO30CA2 PO; LEVO25TA9 PO
[2022-09-16 08:52] LABS: BASOPHILS % (AUTO) 0.4 % (0.0-5.0); EOSINOPHILS % (AUTO) 7.5 % (0.0-8.0); HEMATOCRIT 34.6 % (36-48); LYMPHOCYTES % (AUTO) 50.3 % (21.0-51.0); MEAN CORPUSCULAR HEMOGLOBIN 31.4 pg (27.0-33.0); MEAN CORPUSCULAR HGB CONC 31.8 g/dL (32.0-36.0); MEAN CORPUSCULAR VOLUME 98.9 fL (79-99); MONOCYTES % (AUTO) 11.6 % (3.0-13.0); PLATELET COUNT (AUTO) 203 K/uL (130-400); RED CELL DISTRIBUTION WIDTH 15.4 % (11.0-15.5); WHITE BLOOD COUNT (AUTO) 4.9 K/uL (4.8-10.8)
[2022-09-16 09:03] VITALS: BP 123/67
[2022-09-16 09:30] LABS: ALBUMIN 2.6 g/dL (3.5-5.0); CREATININE 1.4 mg/dL (0.5-1.5); POTASSIUM 3.9 mmol/L (3.5-5.1); TOTAL PROTEIN, SERUM 8.4 g/dL (6.0-8.3)
== END 2022-09-16 10:34 | disposition home or self-care (01) ==
LOC: EDH 08:21
DX: K94.09 Other complications of colostomy (principal); Z79.899 Other long term (current) drug therapy; Z88.1 Allergy status to other antibiotic agents
CPT/HCPCS: 36415; 80053; 85025

== ENCOUNTER 2022-09-25 11:27 | Inpatient (IN) | payer OTHER ==
[~2022-09-25] VITALS: Ht 152.4 cm; Wt 44.1 kg
[2022-09-25 13:46] LABS: BASOPHILS % (AUTO) 0.2 % (0.0-5.0); EOSINOPHILS % (AUTO) 1.1 % (0.0-8.0); HEMATOCRIT 32.7 % (36-48); LYMPHOCYTES % (AUTO) 18.6 % (21.0-51.0); MEAN CORPUSCULAR HEMOGLOBIN 31.5 pg (27.0-33.0); MEAN CORPUSCULAR HGB CONC 32.4 g/dL (32.0-36.0); MEAN CORPUSCULAR VOLUME 97.3 fL (79-99); MONOCYTES % (AUTO) 9.3 % (3.0-13.0); NEUTROPHILS % (AUTO) 70.1 % (40.0-77.0); PLATELET COUNT (AUTO) 201 K/uL (130-400); RED BLOOD CELL COUNT(AUTO) 3.36 MIL/uL (4.00-5.50); RED CELL DISTRIBUTION WIDTH 14.1 % (11.0-15.5); WHITE BLOOD COUNT (AUTO) 9.6 K/uL (4.8-10.8)
[2022-09-25 13:53] LABS: APPEARANCE,URINE TURBID (CLEAR); BILIRUBIN,URINE NEGATIVE (NEGATIVE); COLOR,URINE LIGHT-ORANGE (YELLOW); GLUCOSE, URINE (UA) NEGATIVE (NEGATIVE); KETONES,URINE NEGATIVE (NEGATIVE); LEUKOCYTE ESTERASE ,URINE 500 Leu/uL (NEGATIVE); NITRATE,URINE 2+ (NEGATIVE); OCCULT BLOOD,URINE LARGE (NEGATIVE); PROTEIN,URINE 100 mg/dL (NEGATIVE); UROBILINOGEN,URINE 0.2 mg/dL (0.2-1.0)
[2022-09-25 14:04] LABS: CREATININE 1.6 mg/dL (0.5-1.5); POTASSIUM 4.6 mmol/L (3.5-5.1)
[2022-09-25 14:08] LABS: ALBUMIN 2.4 g/dL (3.5-5.0); TOTAL PROTEIN, SERUM 8.8 g/dL (6.0-8.3)
[2022-09-25 14:12] LABS: BACTERIA,URINE MANY /HPF (None Seen); MUCUS,URINE RARE LPF (None Seen); RBC,URINE TNTC /HPF (0-1); WBC,URINE TNTC /HPF (0-1); YEAST,URINE BUDDING FEW /HPF (None Seen)
[2022-09-25] MEDS ORDERED: MEROPENEM 1 GM VIAL IVP SCH (16:00)
[2022-09-25] MEDS ORDERED: 0.9%NACL 1000ML 1,000 ML IV ONE (17:00)
[2022-09-25] MEDS ORDERED: ACETAMINOPHEN 500 MG TABLET PO PRN (17:00)
[2022-09-25 17:47] LABS: HEMOGLOBIN A1C 5.5 % (4.0-6.0)
[2022-09-26] MEDS: MEROPENEM 1 GM VIAL IVP SCH ×2 (04:01→16:19)
[2022-09-26 08:00] LABS: BASOPHILS % (AUTO) 0.3 % (0.0-5.0); EOSINOPHILS % (AUTO) 2.4 % (0.0-8.0); HEMATOCRIT 30.5 % (36-48); LYMPHOCYTES % (AUTO) 21.9 % (21.0-51.0); MEAN CORPUSCULAR HEMOGLOBIN 32.1 pg (27.0-33.0); MEAN CORPUSCULAR HGB CONC 32.8 g/dL (32.0-36.0); MEAN CORPUSCULAR VOLUME 97.8 fL (79-99); MONOCYTES % (AUTO) 10.7 % (3.0-13.0); NEUTROPHILS % (AUTO) 63.6 % (40.0-77.0); PLATELET COUNT (AUTO) 185 K/uL (130-400); RED BLOOD CELL COUNT(AUTO) 3.12 MIL/uL (4.00-5.50); WHITE BLOOD COUNT (AUTO) 7.1 K/uL (4.8-10.8)
[2022-09-26 08:12] LABS: CREATININE 1.5 mg/dL (0.5-1.5); MAGNESIUM 1.7 mg/dL (1.80-2.40); POTASSIUM 4.3 mmol/L (3.5-5.1)
[2022-09-26] MEDS: ENOXAPARIN SODIUM 30 MG/0.3 ML SQ SCH (08:43)
[2022-09-26] MEDS ORDERED: MAGNESIUM 2GM PREMIX 50ML 50 ML IV PRN (09:30)
[2022-09-26 09:45] VITALS: BP 94/68
[2022-09-26] MEDS: 0.9%NACL 1000ML 1,000 ML IV SCH (15:55)
[2022-09-26 16:00] VITALS: BP 123/67
[2022-09-26 20:00] VITALS: BP 116/66
[2022-09-27] VITALS: BP 140/73
[2022-09-27 04:00] VITALS: BP 116/63
[2022-09-27] MEDS: MEROPENEM 1 GM VIAL IVP SCH (04:59)
[2022-09-27] MEDS: 0.9%NACL 1000ML 1,000 ML IV SCH (05:03)
[2022-09-27 05:54] LABS: BASOPHILS % (AUTO) 0.4 % (0.0-5.0); EOSINOPHILS % (AUTO) 3.3 % (0.0-8.0); HEMATOCRIT 30.8 % (36-48); LYMPHOCYTES % (AUTO) 21.9 % (21.0-51.0); MEAN CORPUSCULAR HEMOGLOBIN 31.6 pg (27.0-33.0); MEAN CORPUSCULAR HGB CONC 33.1 g/dL (32.0-36.0); MEAN CORPUSCULAR VOLUME 95.4 fL (79-99); MONOCYTES % (AUTO) 10.7 % (3.0-13.0); NEUTROPHILS % (AUTO) 62.5 % (40.0-77.0); PLATELET COUNT (AUTO) 187 K/uL (130-400); RED BLOOD CELL COUNT(AUTO) 3.23 MIL/uL (4.00-5.50); RED CELL DISTRIBUTION WIDTH 13.8 % (11.0-15.5); WHITE BLOOD COUNT (AUTO) 5.1 K/uL (4.8-10.8)
[2022-09-27 06:13] LABS: CREATININE 1.5 mg/dL (0.5-1.5); MAGNESIUM 2.3 mg/dL (1.80-2.40); POTASSIUM 4.7 mmol/L (3.5-5.1)
[2022-09-27 06:14] LABS: TOTAL PROTEIN, SERUM 7.5 g/dL (6.0-8.3)
[2022-09-27 08:00] VITALS: BP 113/63
[2022-09-27] MEDS: ENOXAPARIN SODIUM 30 MG/0.3 ML SQ SCH (08:53)
[2022-09-27] MEDS ORDERED: LEVOFLOXACIN 750 MG TABLET PO SCH (10:30)
[2022-09-27 11:25] VITALS: BP 108/61
[2022-09-27] MEDS ORDERED: LEVO750T68 PO (12:32)
[2022-09-29] MEDS ORDERED: LEVOFLOXACIN 750 MG TABLET PO SCH (09:00)
== END 2022-09-27 14:17 | disposition home or self-care (01) | DRG 872 ==
LOC: EDH 11:27 → EDHIP 11:28 → 3DH 09-26 09:49
PROVIDERS: ADMIT Internal Medicine; ATTEND Internal Medicine
DX: A41.9 Sepsis, unspecified organism (principal); E87.1 Hypo-osmolality and hyponatremia; N17.9 Acute kidney failure, unspecified; N39.0 Urinary tract infection, site not specified; D63.8 Anemia in other chronic diseases classified elsewhere; N18.9 Chronic kidney disease, unspecified; I12.9 Hypertensive chronic kidney disease with stage 1 through stage 4 chronic kidney disease, or unspecified chronic kidney disease; F32.A Depression, unspecified; B96.20 Unspecified Escherichia coli [E. coli] as the cause of diseases classified elsewhere; B96.1 Klebsiella pneumoniae [K. pneumoniae] as the cause of diseases classified elsewhere; B96.89 Other specified bacterial agents as the cause of diseases classified elsewhere; E03.9 Hypothyroidism, unspecified; E78.00 Pure hypercholesterolemia, unspecified; Z85.048 Personal history of other malignant neoplasm of rectum, rectosigmoid junction, and anus; Z93.3 Colostomy status; Z87.440 Personal history of urinary (tract) infections; Z93.6 Other artificial openings of urinary tract status; Z91.199 Patient's noncompliance with other medical treatment and regimen due to unspecified reason; Z86.19 Personal history of other infectious and parasitic diseases
CPT/HCPCS: 36415; 74176; 80048; 80053; 81001; 83036; 83605; 83735; 84145; 84443; 85025; 87040; 87077; 87088; 87186; G0378; J1650; J2185; J3475; J7030

== ENCOUNTER 2022-11-27 13:10 | Inpatient (IN) | payer MEDICAID, OTHER ==
[~2022-11-27] VITALS: Ht 154.9 cm; Wt 49.4 kg
[~2022-11-27 13:10] MED LIST changes: +LEVO750T68 PO
[2022-11-27 13:40] LABS: BASOPHILS % (AUTO) 0.1 % (0.0-5.0); EOSINOPHILS % (AUTO) 0.1 % (0.0-8.0); HEMATOCRIT 33.8 % (36-48); LYMPHOCYTES % (AUTO) 10.5 % (21.0-51.0); MEAN CORPUSCULAR HEMOGLOBIN 31.4 pg (27.0-33.0); MEAN CORPUSCULAR HGB CONC 34.9 g/dL (32.0-36.0); MEAN CORPUSCULAR VOLUME 89.9 fL (79-99); MONOCYTES % (AUTO) 6.1 % (3.0-13.0); NEUTROPHILS % (AUTO) 82.5 % (40.0-77.0); PLATELET COUNT (AUTO) 269 K/uL (130-400); RED BLOOD CELL COUNT(AUTO) 3.76 MIL/uL (4.00-5.50); RED CELL DISTRIBUTION WIDTH 12.7 % (11.0-15.5); WHITE BLOOD COUNT (AUTO) 16.6 K/uL (4.8-10.8)
[2022-11-27 13:49] LABS: CREATININE 2.4 mg/dL (0.5-1.5); POTASSIUM 4.6 mmol/L (3.5-5.1)
[2022-11-27 13:53] LABS: TOTAL PROTEIN, SERUM 8.8 g/dL (6.0-8.3)
[2022-11-27] MEDS ORDERED: 0.9%NACL 1000ML 1,000 ML IV ONE (15:00)
[2022-11-27 15:34] LABS: APPEARANCE,URINE CLOUDY (CLEAR); BILIRUBIN,URINE NEGATIVE (NEGATIVE); COLOR,URINE LIGHT-ORANGE (YELLOW); GLUCOSE, URINE (UA) NEGATIVE (NEGATIVE); KETONES,URINE NEGATIVE (NEGATIVE); LEUKOCYTE ESTERASE ,URINE 500 Leu/uL (NEGATIVE); NITRATE,URINE NEGATIVE (NEGATIVE); OCCULT BLOOD,URINE LARGE (NEGATIVE); PROTEIN,URINE 100 mg/dL (NEGATIVE); UROBILINOGEN,URINE 0.2 mg/dL (0.2-1.0)
[2022-11-27 15:54] LABS: BACTERIA,URINE MOD /HPF (None Seen); RBC,URINE 26-50 /HPF (0-1); SQUAMOUS EPITHELIAL CELL,UR RARE /HPF (0-2); WBC,URINE TNTC /HPF (0-1)
[2022-11-27] MEDS ORDERED: THIAMINE HCL 100 MG/ML 2ML VIAL IVP SCH (17:00)
[2022-11-27] MEDS ORDERED: ONDANSETRON 4MG INJ IVP PRN (17:00)
[2022-11-27] MEDS ORDERED: IPRATROPIUM 0.5 MG/2.5 ML INH IH PRN (17:00)
[2022-11-27] MEDS ORDERED: ACETAMINOPHEN 325 MG TAB PO PRN (17:00)
[2022-11-27] MEDS ORDERED: FOLIC ACID 1 MG TABLET PO SCH (17:00)
[2022-11-27 17:07] LABS: INR 1.08 (0.85-1.15); PROTHROMBIN TIME 11.7 SEC (9.6-11.6)
[2022-11-27 17:09] LABS: PARTIAL THROMBOPLASTIN TIME 33.6 SEC (26.3-35.5)
[2022-11-27 17:43] LABS: CREATININE,URINE RANDOM 42 mg/dL (30-135); SODIUM,URINE RANDOM 38 mmol/l (40-220)
[2022-11-27] MEDS: 0.9%NACL 1000ML 1,000 ML IV SCH (18:22)
[2022-11-27] MEDS: MEROPENEM 500 MG VIAL IVP SCH (18:35)
[2022-11-27] MEDS: Vitamin B Complex/Vit C/Folic Acid PO SCH (18:35)
[2022-11-27] MEDS: PANTOPRAZOLE 40 MG/VIAL IVP SCH (18:35)
[2022-11-27] MEDS: SODIUM BICARBONATE 650 MG TAB PO SCH (20:07)
[2022-11-27 20:44] VITALS: BP 104/61
[2022-11-27 20:51] LABS: CREATININE 2.2 mg/dL (0.5-1.5); POTASSIUM 4.6 mmol/L (3.5-5.1)
[2022-11-28] VITALS (7 sets, daily range): BP systolic 89–103; BP diastolic 41–56
[2022-11-28 03:37] LABS: BASOPHILS % (AUTO) 0.1 % (0.0-5.0); EOSINOPHILS % (AUTO) 0.6 % (0.0-8.0); HEMATOCRIT 29.8 % (36-48); LYMPHOCYTES % (AUTO) 10.9 % (21.0-51.0); MEAN CORPUSCULAR HEMOGLOBIN 31.3 pg (27.0-33.0); MEAN CORPUSCULAR HGB CONC 34.6 g/dL (32.0-36.0); MEAN CORPUSCULAR VOLUME 90.6 fL (79-99); MONOCYTES % (AUTO) 7.3 % (3.0-13.0); NEUTROPHILS % (AUTO) 80.1 % (40.0-77.0); PLATELET COUNT (AUTO) 259 K/uL (130-400); RED BLOOD CELL COUNT(AUTO) 3.29 MIL/uL (4.00-5.50); RED CELL DISTRIBUTION WIDTH 12.8 % (11.0-15.5); WHITE BLOOD COUNT (AUTO) 16.1 K/uL (4.8-10.8)
[2022-11-28 03:54] LABS: ALBUMIN 2.5 g/dL (3.5-5.0); MAGNESIUM 1.8 mg/dL (1.80-2.40); POTASSIUM 4.1 mmol/L (3.5-5.1); TOTAL PROTEIN, SERUM 7.5 g/dL (6.0-8.3)
[2022-11-28] MEDS: MEROPENEM 500 MG VIAL IVP SCH ×2 (05:21→17:15)
[2022-11-28] MEDS: 0.9%NACL 1000ML 1,000 ML IV SCH ×2 (05:23→21:10)
[2022-11-28] MEDS: SODIUM BICARBONATE 650 MG TAB PO SCH ×2 (08:37→21:08)
[2022-11-28] MEDS: MIDODRINE HCL 5 MG TABLET PO SCH ×3 (12:37→21:08)
[2022-11-28] MEDS: Vitamin B Complex/Vit C/Folic Acid PO SCH (17:15)
[2022-11-28] MEDS: PANTOPRAZOLE 40 MG/VIAL IVP SCH (17:15)
[2022-11-29] VITALS (14 sets, daily range): BP systolic 87–120; BP diastolic 40–61
[2022-11-29 03:40] LABS: BASOPHILS % (AUTO) 0.1 % (0.0-5.0); EOSINOPHILS % (AUTO) 1.8 % (0.0-8.0); HEMATOCRIT 26.2 % (36-48); LYMPHOCYTES % (AUTO) 18.4 % (21.0-51.0); MEAN CORPUSCULAR HEMOGLOBIN 31.2 pg (27.0-33.0); MEAN CORPUSCULAR HGB CONC 33.6 g/dL (32.0-36.0); MEAN CORPUSCULAR VOLUME 92.9 fL (79-99); NEUTROPHILS % (AUTO) 67.7 % (40.0-77.0); PLATELET COUNT (AUTO) 227 K/uL (130-400); RED BLOOD CELL COUNT(AUTO) 2.82 MIL/uL (4.00-5.50); RED CELL DISTRIBUTION WIDTH 13.2 % (11.0-15.5)
[2022-11-29 03:51] LABS: CREATININE 1.8 mg/dL (0.5-1.5); POTASSIUM 4.3 mmol/L (3.5-5.1)
[2022-11-29] MEDS: MEROPENEM 500 MG VIAL IVP SCH ×2 (05:15→16:32)
[2022-11-29] MEDS: MIDODRINE HCL 5 MG TABLET PO SCH ×3 (07:27→21:02)
[2022-11-29] MEDS ORDERED: POTASSIUM CHLORIDE 10% ELIXIR 20 MEQ/15 ML UDCUP PO PRN (07:30)
[2022-11-29] MEDS ORDERED: POTASSIUM CHLORIDE 20MEQ/100ML 100 ML IV PRN (07:30)
[2022-11-29] MEDS ORDERED: LIDOCAINE HCL-MPF 1% 2ML VIAL IV PRN (07:30)
[2022-11-29] MEDS: SODIUM BICARBONATE 650 MG TAB PO SCH ×2 (08:14→21:03)
[2022-11-29] MEDS: 0.9%NACL 1000ML 1,000 ML IV SCH ×2 (08:17→22:35)
[2022-11-29] MEDS ORDERED: MIDAZOLAM HCL 1 MG/ML 2ML VIAL ONE (13:00)
[2022-11-29] MEDS ORDERED: FENTANYL CITRATE PF 50 MCG/1 ML 2ML VIAL ONE (13:00)
[2022-11-29] MEDS ORDERED: LIDOCAINE HCL 1% MDV 50ML VIAL ONE (13:01)
[2022-11-29] MEDS ORDERED: IOHEXOL-350 50ML VIAL IV ONE (13:03)
[2022-11-29] MEDS ORDERED: MIDODRINE HCL 5 MG TABLET PO ONE (15:00)
[2022-11-29] MEDS: PANTOPRAZOLE 40 MG/VIAL IVP SCH (16:32)
[2022-11-29] MEDS: Vitamin B Complex/Vit C/Folic Acid PO SCH (16:32)
[2022-11-30 03:55] LABS: BASOPHILS % (AUTO) 0.2 % (0.0-5.0); EOSINOPHILS % (AUTO) 2.4 % (0.0-8.0); HEMATOCRIT 26.8 % (36-48); LYMPHOCYTES % (AUTO) 23.1 % (21.0-51.0); MEAN CORPUSCULAR HEMOGLOBIN 31.4 pg (27.0-33.0); MEAN CORPUSCULAR HGB CONC 32.5 g/dL (32.0-36.0); MEAN CORPUSCULAR VOLUME 96.8 fL (79-99); MONOCYTES % (AUTO) 11.8 % (3.0-13.0); NEUTROPHILS % (AUTO) 61.5 % (40.0-77.0); PLATELET COUNT (AUTO) 213 K/uL (130-400); RED BLOOD CELL COUNT(AUTO) 2.77 MIL/uL (4.00-5.50); RED CELL DISTRIBUTION WIDTH 13.3 % (11.0-15.5); WHITE BLOOD COUNT (AUTO) 8.8 K/uL (4.8-10.8)
[2022-11-30 04:14] LABS: ALBUMIN 1.9 g/dL (3.5-5.0); CREATININE 1.6 mg/dL (0.5-1.5); MAGNESIUM 1.3 mg/dL (1.80-2.40); POTASSIUM 4.2 mmol/L (3.5-5.1); TOTAL PROTEIN, SERUM 6.2 g/dL (6.0-8.3)
[2022-11-30 04:24] VITALS: BP 98/53
[2022-11-30] MEDS: MEROPENEM 500 MG VIAL IVP SCH ×2 (05:29→16:11)
[2022-11-30] MEDS: MAGNESIUM 2GM PREMIX 50ML 50 ML IV PRN (05:29)
[2022-11-30] MEDS: SODIUM BICARBONATE 650 MG TAB PO SCH ×2 (08:21→20:38)
[2022-11-30] MEDS: MIDODRINE HCL 5 MG TABLET PO SCH ×3 (08:21→20:38)
[2022-11-30 08:34] VITALS: BP 97/49
[2022-11-30 11:41] VITALS: BP 93/54
[2022-11-30] MEDS: 0.9%NACL 1000ML 1,000 ML IV SCH (14:34)
[2022-11-30] MEDS ORDERED: FUROSEMIDE 20MG VIAL ONE (15:58)
[2022-11-30] MEDS: Vitamin B Complex/Vit C/Folic Acid PO SCH (16:11)
[2022-11-30] MEDS: PANTOPRAZOLE 40 MG/VIAL IVP SCH (16:11)
[2022-11-30 17:38] VITALS: BP 114/55
[2022-11-30 19:45] VITALS: BP 110/64
[2022-12-01 00:10] VITALS: BP 125/58
[2022-12-01 03:45] LABS: BASOPHILS % (AUTO) 0.3 % (0.0-5.0); EOSINOPHILS % (AUTO) 3.6 % (0.0-8.0); HEMATOCRIT 27.6 % (36-48); LYMPHOCYTES % (AUTO) 30.9 % (21.0-51.0); MEAN CORPUSCULAR HEMOGLOBIN 31.5 pg (27.0-33.0); MEAN CORPUSCULAR VOLUME 95.5 fL (79-99); MONOCYTES % (AUTO) 13.4 % (3.0-13.0); NEUTROPHILS % (AUTO) 50.8 % (40.0-77.0); PLATELET COUNT (AUTO) 184 K/uL (130-400); RED BLOOD CELL COUNT(AUTO) 2.89 MIL/uL (4.00-5.50); RED CELL DISTRIBUTION WIDTH 13.2 % (11.0-15.5); WHITE BLOOD COUNT (AUTO) 6.9 K/uL (4.8-10.8)
[2022-12-01 04:00] LABS: CREATININE 1.4 mg/dL (0.5-1.5); MAGNESIUM 1.7 mg/dL (1.80-2.40); POTASSIUM 3.9 mmol/L (3.5-5.1); TOTAL PROTEIN, SERUM 6.5 g/dL (6.0-8.3)
[2022-12-01 04:58] VITALS: BP 108/57
[2022-12-01] MEDS: MEROPENEM 500 MG VIAL IVP SCH ×2 (05:42→17:27)
[2022-12-01] MEDS: MAGNESIUM 2GM PREMIX 50ML 50 ML IV PRN (05:42)
[2022-12-01] MEDS: 0.9%NACL 1000ML 1,000 ML IV SCH ×2 (05:43→09:23)
[2022-12-01 07:24] VITALS: BP 113/73
[2022-12-01] MEDS: MIDODRINE HCL 5 MG TABLET PO SCH ×3 (09:23→21:18)
[2022-12-01] MEDS: SODIUM BICARBONATE 650 MG TAB PO SCH ×2 (09:23→21:18)
[2022-12-01 12:00] VITALS: BP 109/56
[2022-12-01 16:00] VITALS: BP 101/70
[2022-12-01] MEDS: Vitamin B Complex/Vit C/Folic Acid PO SCH (17:27)
[2022-12-01] MEDS: PANTOPRAZOLE 40 MG/VIAL IVP SCH (17:27)
[2022-12-01 19:33] VITALS: BP 123/60
[2022-12-02 00:12] VITALS: BP 121/60
[2022-12-02 03:33] LABS: BASOPHILS % (AUTO) 0.2 % (0.0-5.0); EOSINOPHILS % (AUTO) 3.7 % (0.0-8.0); LYMPHOCYTES % (AUTO) 32.7 % (21.0-51.0); MEAN CORPUSCULAR HEMOGLOBIN 31.9 pg (27.0-33.0); MEAN CORPUSCULAR HGB CONC 33.6 g/dL (32.0-36.0); MEAN CORPUSCULAR VOLUME 94.9 fL (79-99); MONOCYTES % (AUTO) 12.9 % (3.0-13.0); NEUTROPHILS % (AUTO) 49.5 % (40.0-77.0); PLATELET COUNT (AUTO) 176 K/uL (130-400); RED BLOOD CELL COUNT(AUTO) 2.95 MIL/uL (4.00-5.50); WHITE BLOOD COUNT (AUTO) 5.9 K/uL (4.8-10.8)
[2022-12-02 03:48] LABS: ALBUMIN 1.9 g/dL (3.5-5.0); CREATININE 1.3 mg/dL (0.5-1.5); MAGNESIUM 1.9 mg/dL (1.80-2.40); POTASSIUM 4.1 mmol/L (3.5-5.1); TOTAL PROTEIN, SERUM 6.1 g/dL (6.0-8.3)
[2022-12-02 04:08] VITALS: BP 128/67
[2022-12-02] MEDS: MEROPENEM 500 MG VIAL IVP SCH ×2 (05:14→17:28)
[2022-12-02] MEDS: MAGNESIUM 2GM PREMIX 50ML 50 ML IV PRN (05:15)
[2022-12-02 08:00] VITALS: BP 113/57
[2022-12-02] MEDS ORDERED: 0.9%NACL 1000ML 1,000 ML IV ONE (08:06)
[2022-12-02] MEDS ORDERED: IOHEXOL-350 50ML VIAL IV ONE (08:54)
[2022-12-02] MEDS: MIDODRINE HCL 5 MG TABLET PO SCH ×3 (09:00→23:09)
[2022-12-02] MEDS: SODIUM BICARBONATE 650 MG TAB PO SCH ×2 (09:00→23:08)
[2022-12-02] MEDS ORDERED: LIDOCAINE HCL MPF 1% 5ML VIAL ONE (12:29)
[2022-12-02 16:00] VITALS: BP 119/54
[2022-12-02] MEDS: PANTOPRAZOLE 40 MG/VIAL IVP SCH (17:28)
[2022-12-02] MEDS: Vitamin B Complex/Vit C/Folic Acid PO SCH (17:30)
[2022-12-02 20:00] VITALS: BP 128/60
[2022-12-03] VITALS: BP 124/59
[2022-12-03 04:00] VITALS: BP 119/60
[2022-12-03] MEDS: MEROPENEM 500 MG VIAL IVP SCH ×2 (05:16→17:38)
[2022-12-03 06:52] LABS: EOSINOPHILS % (AUTO) 4.6 % (0.0-8.0); LYMPHOCYTES % (AUTO) 33.8 % (21.0-51.0); MEAN CORPUSCULAR HGB CONC 34.4 g/dL (32.0-36.0); MEAN CORPUSCULAR VOLUME 92.8 fL (79-99); MONOCYTES % (AUTO) 11.1 % (3.0-13.0); NEUTROPHILS % (AUTO) 49.7 % (40.0-77.0); PLATELET COUNT (AUTO) 155 K/uL (130-400); RED BLOOD CELL COUNT(AUTO) 2.91 MIL/uL (4.00-5.50); RED CELL DISTRIBUTION WIDTH 12.7 % (11.0-15.5)
[2022-12-03 07:13] LABS: ALBUMIN 2.1 g/dL (3.5-5.0); CREATININE 1.3 mg/dL (0.5-1.5); MAGNESIUM 1.9 mg/dL (1.80-2.40); POTASSIUM 3.8 mmol/L (3.5-5.1); TOTAL PROTEIN, SERUM 6.3 g/dL (6.0-8.3)
[2022-12-03 07:30] VITALS: BP 127/65
[2022-12-03] MEDS: MIDODRINE HCL 5 MG TABLET PO SCH ×3 (10:01→21:08)
[2022-12-03] MEDS: SODIUM BICARBONATE 650 MG TAB PO SCH ×2 (10:01→21:08)
[2022-12-03] MEDS: MAGNESIUM 2GM PREMIX 50ML 50 ML IV PRN (10:02)
[2022-12-03 11:00] VITALS: BP 109/59
[2022-12-03] MEDS: KCL 20 MEQ ERTAB PO PRN ×2 (14:28→17:38)
[2022-12-03 16:00] VITALS: BP 115/62
[2022-12-03] MEDS: Vitamin B Complex/Vit C/Folic Acid PO SCH (17:38)
[2022-12-03] MEDS: PANTOPRAZOLE 40 MG/VIAL IVP SCH (17:38)
[2022-12-03] MEDS ORDERED: FUROSEMIDE 20MG VIAL ONE (18:33)
[2022-12-03 20:00] VITALS: BP 124/64
[2022-12-04] MEDS: MEROPENEM 500 MG VIAL IVP SCH ×2 (03:52→17:02)
[2022-12-04 04:00] VITALS: BP 128/63
[2022-12-04 06:31] LABS: BASOPHILS % (AUTO) 0.3 % (0.0-5.0); HEMATOCRIT 28.8 % (36-48); LYMPHOCYTES % (AUTO) 36.1 % (21.0-51.0); MEAN CORPUSCULAR HEMOGLOBIN 31.5 pg (27.0-33.0); MEAN CORPUSCULAR HGB CONC 33.3 g/dL (32.0-36.0); MEAN CORPUSCULAR VOLUME 94.4 fL (79-99); MONOCYTES % (AUTO) 10.5 % (3.0-13.0); NEUTROPHILS % (AUTO) 47.2 % (40.0-77.0); PLATELET COUNT (AUTO) 144 K/uL (130-400); RED BLOOD CELL COUNT(AUTO) 3.05 MIL/uL (4.00-5.50); RED CELL DISTRIBUTION WIDTH 12.4 % (11.0-15.5); WHITE BLOOD COUNT (AUTO) 5.8 K/uL (4.8-10.8)
[2022-12-04 06:47] LABS: ALBUMIN 2.2 g/dL (3.5-5.0); CREATININE 1.3 mg/dL (0.5-1.5); MAGNESIUM 2.1 mg/dL (1.80-2.40); POTASSIUM 4.7 mmol/L (3.5-5.1); TOTAL PROTEIN, SERUM 6.5 g/dL (6.0-8.3)
[2022-12-04 08:00] VITALS: BP 125/66
[2022-12-04] MEDS: SODIUM BICARBONATE 650 MG TAB PO SCH ×2 (09:36→21:08)
[2022-12-04] MEDS: MIDODRINE HCL 5 MG TABLET PO SCH ×3 (09:37→21:08)
[2022-12-04 12:00] VITALS: BP 107/52
[2022-12-04 16:40] VITALS: BP 137/65
[2022-12-04] MEDS: PANTOPRAZOLE 40 MG/VIAL IVP SCH (17:02)
[2022-12-04] MEDS: Vitamin B Complex/Vit C/Folic Acid PO SCH (17:02)
[2022-12-04 20:00] VITALS: BP 102/60
[2022-12-05] VITALS: BP 115/55
[2022-12-05 04:00] VITALS: BP 116/58
[2022-12-05] MEDS: MEROPENEM 500 MG VIAL IVP SCH ×2 (04:16→16:47)
[2022-12-05 05:13] LABS: BASOPHILS % (AUTO) 0.3 % (0.0-5.0); EOSINOPHILS % (AUTO) 5.2 % (0.0-8.0); HEMATOCRIT 28.7 % (36-48); LYMPHOCYTES % (AUTO) 35.9 % (21.0-51.0); MEAN CORPUSCULAR HEMOGLOBIN 31.5 pg (27.0-33.0); MEAN CORPUSCULAR HGB CONC 32.8 g/dL (32.0-36.0); MEAN CORPUSCULAR VOLUME 96.3 fL (79-99); MONOCYTES % (AUTO) 10.2 % (3.0-13.0); NEUTROPHILS % (AUTO) 47.6 % (40.0-77.0); PLATELET COUNT (AUTO) 177 K/uL (130-400); RED BLOOD CELL COUNT(AUTO) 2.98 MIL/uL (4.00-5.50); RED CELL DISTRIBUTION WIDTH 12.5 % (11.0-15.5); WHITE BLOOD COUNT (AUTO) 5.9 K/uL (4.8-10.8)
[2022-12-05 05:31] LABS: ALBUMIN 2.2 g/dL (3.5-5.0); CREATININE 1.4 mg/dL (0.5-1.5); POTASSIUM 4.4 mmol/L (3.5-5.1); TOTAL PROTEIN, SERUM 6.4 g/dL (6.0-8.3)
[2022-12-05 08:20] VITALS: BP 120/66
[2022-12-05] MEDS: SODIUM BICARBONATE 650 MG TAB PO SCH ×2 (10:24→21:36)
[2022-12-05] MEDS: MIDODRINE HCL 5 MG TABLET PO SCH ×3 (10:24→21:35)
[2022-12-05 11:15] VITALS: BP 102/50
[2022-12-05 16:30] VITALS: BP 154/71
[2022-12-05] MEDS: PANTOPRAZOLE 40 MG/VIAL IVP SCH (16:47)
[2022-12-05] MEDS: Vitamin B Complex/Vit C/Folic Acid PO SCH (16:48)
[2022-12-05 20:08] VITALS: BP 143/67
[2022-12-06 00:11] VITALS: BP 154/70
[2022-12-06 03:29] VITALS: BP 132/66
[2022-12-06] MEDS: MEROPENEM 500 MG VIAL IVP SCH (05:12)
[2022-12-06 05:24] LABS: HEMATOCRIT 28.8 % (36-48); MEAN CORPUSCULAR HGB CONC 32.3 g/dL (32.0-36.0); RED CELL DISTRIBUTION WIDTH 12.4 % (11.0-15.5); WHITE BLOOD COUNT (AUTO) 7.8 K/uL (4.8-10.8)
[2022-12-06 05:42] LABS: CREATININE 1.4 mg/dL (0.5-1.5); POTASSIUM 4.3 mmol/L (3.5-5.1)
[2022-12-06 08:00] VITALS: BP 115/89
[2022-12-06] MEDS: MIDODRINE HCL 5 MG TABLET PO SCH ×2 (09:00→14:12)
[2022-12-06] MEDS ORDERED: IOHEXOL-350 50ML VIAL IV ONE (09:50)
[2022-12-06] MEDS: SODIUM BICARBONATE 650 MG TAB PO SCH (11:35)
[2022-12-06 11:48] VITALS: BP 115/60
== END 2022-12-06 16:30 | disposition home or self-care (01) | DRG 871 ==
LOC: EDH 13:10 → EDHIP 13:11 → UNDOADMIN 16:39 → EDHIP 16:39 → 2AH 20:16 → EDHIP 20:16 → 3CH 12-02 11:00
PROVIDERS: ADMIT Hospitalist; ATTEND Hospitalist
PROC: 0T25X0Z Change Drainage Device in Kidney, External Approach (ICD-10-PCS; principal; 2022-11-29)
PROC: BT131ZZ Fluoroscopy of Bilateral Kidneys using Low Osmolar Contrast (ICD-10-PCS; 2022-11-29)
DX: A41.50 Gram-negative sepsis, unspecified (principal); E43 Unspecified severe protein-calorie malnutrition; E87.20 Acidosis, unspecified; N17.9 Acute kidney failure, unspecified; Z20.822 Contact with and (suspected) exposure to COVID-19; C20 Malignant neoplasm of rectum; E87.1 Hypo-osmolality and hyponatremia; N13.6 Pyonephrosis; Z16.24 Resistance to multiple antibiotics; I95.9 Hypotension, unspecified; E86.0 Dehydration; N18.9 Chronic kidney disease, unspecified; I12.9 Hypertensive chronic kidney disease with stage 1 through stage 4 chronic kidney disease, or unspecified chronic kidney disease; E86.1 Hypovolemia; D64.9 Anemia, unspecified; F32.A Depression, unspecified; E03.9 Hypothyroidism, unspecified; E11.22 Type 2 diabetes mellitus with diabetic chronic kidney disease; E78.00 Pure hypercholesterolemia, unspecified; Z85.048 Personal history of other malignant neoplasm of rectum, rectosigmoid junction, and anus; Z86.19 Personal history of other infectious and parasitic diseases; Z87.440 Personal history of urinary (tract) infections; Z90.49 Acquired absence of other specified parts of digestive tract; Z91.199 Patient's noncompliance with other medical treatment and regimen due to unspecified reason; Z92.3 Personal history of irradiation; Z93.3 Colostomy status; Z68.20 Body mass index [BMI] 20.0-20.9, adult
CPT/HCPCS: 27040; 36415; 50435; 70450; 71045; 74176; 74177; 74400; 78708; 80048; 80053; 81001; 82533; 82550; 82570; 82948; 83605; 83735; 83930; 83935; 84100; 84145; 84300; 84443; 84484; 85025; 85027; 85610; 85651; 85730; 86140; 87040; 87088; 87635; 87804; 93005; 94664; 96361; 96374; 97039; A9562; C1729; C1769; C9113; C9803; G0378; J1644; J1940; J2185; J2250; J3010; J3411; J3475; J3490; J7030; Q9967

== ENCOUNTER 2023-01-30 16:23 | Inpatient (IN) | payer OTHER ==
[~2023-01-30] VITALS: Ht 154.9 cm; Wt 52.4 kg
[~2023-01-30 16:23] MED LIST changes: -LEVO750T68 PO
[2023-01-30] MEDS ORDERED: ONDANSETRON 4MG INJ IVP ONE (17:30)
[2023-01-30] MEDS ORDERED: 0.9%NACL 1000ML 1,000 ML IV ONE (17:30)
[2023-01-30] MEDS ORDERED: ACETAMINOPHEN 325 MG TAB PO ONE (17:30)
[2023-01-30] MEDS ORDERED: MORPHINE 2 MG SYG IVP ONE (17:30)
[2023-01-30 17:45] LABS: BASOPHILS % (AUTO) 0.3 % (0.0-5.0); EOSINOPHILS % (AUTO) 2.9 % (0.0-8.0); HEMATOCRIT 35.1 % (36-48); MEAN CORPUSCULAR HEMOGLOBIN 31.6 pg (27.0-33.0); MEAN CORPUSCULAR HGB CONC 32.8 g/dL (32.0-36.0); MEAN CORPUSCULAR VOLUME 96.4 fL (79-99); MONOCYTES % (AUTO) 11.1 % (3.0-13.0); PLATELET COUNT (AUTO) 224 K/uL (130-400); RED BLOOD CELL COUNT(AUTO) 3.64 MIL/uL (4.00-5.50); RED CELL DISTRIBUTION WIDTH 12.7 % (11.0-15.5); WHITE BLOOD COUNT (AUTO) 7.5 K/uL (4.8-10.8)
[2023-01-30 18:06] LABS: CREATININE 1.7 mg/dL (0.5-1.5); POTASSIUM 3.9 mmol/L (3.5-5.1)
[2023-01-30 18:10] LABS: ALBUMIN 2.9 g/dL (3.5-5.0); TOTAL PROTEIN, SERUM 8.3 g/dL (6.0-8.3)
[2023-01-30 18:33] LABS: BILIRUBIN,URINE NEGATIVE (NEGATIVE); COLOR,URINE LIGHT-YELLOW (YELLOW); GLUCOSE, URINE (UA) NEGATIVE (NEGATIVE); KETONES,URINE NEGATIVE (NEGATIVE); LEUKOCYTE ESTERASE ,URINE 500 Leu/uL (NEGATIVE); NITRATE,URINE 2+ (NEGATIVE); OCCULT BLOOD,URINE SMALL (NEGATIVE); PH,URINE 5.5 (5.0-8.0); PROTEIN,URINE 70 mg/dL (NEGATIVE); UROBILINOGEN,URINE 0.2 mg/dL (0.2-1.0)
[2023-01-30 18:34] LABS: APPEARANCE,URINE HAZY (CLEAR)
[2023-01-30 18:39] LABS: BACTERIA,URINE MANY /HPF (None Seen); MUCUS,URINE RARE LPF (None Seen); SQUAMOUS EPITHELIAL CELL,UR RARE /HPF (0-2); WBC,URINE TNTC /HPF (0-1)
[2023-01-30] MEDS ORDERED: ZOSYN 3.375GM +NS 50ML IVPB ONE (20:00)
[2023-01-30] MEDS ORDERED: ONDANSETRON 4MG INJ IV PRN (20:00)
[2023-01-30] MEDS ORDERED: NITROGLYCERIN 0.4 MG SL TAB SL PRN (20:00)
[2023-01-30] MEDS ORDERED: 0.9%NACL 50ML IV SCH (20:00)
[2023-01-30] MEDS ORDERED: ZOSYN 3.375GM +NS 50ML IVPB SCH (20:00)
[2023-01-30] MEDS ORDERED: ACETAMINOPHEN 325 MG TAB PO PRN (20:00)
[2023-01-30] MEDS: 0.9%NACL 1000ML 1,000 ML IV SCH (20:10)
[2023-01-30] MEDS: FAMOTIDINE 20MG TAB PO SCH (20:10)
[2023-01-30 20:11] LABS: INR 0.98 (0.85-1.15); PROTHROMBIN TIME 10.7 SEC (9.6-11.6)
[2023-01-30] MEDS: MEROPENEM 500 MG VIAL IVPB SCH (21:29)
[2023-01-31 00:56] VITALS: BP 124/65
[2023-01-31] MEDS ORDERED: FOLI0.8T2 PO (01:13)
[2023-01-31] MEDS ORDERED: FERR325T29 PO (01:13)
[2023-01-31] MEDS ORDERED: OMEP40CA21 PO (01:13)
[2023-01-31 04:00] VITALS: BP 113/74
[2023-01-31] MEDS: 0.9%NACL 1000ML 1,000 ML IV SCH ×2 (06:00→16:00)
[2023-01-31 06:59] LABS: BASOPHILS % (AUTO) 0.1 % (0.0-5.0); EOSINOPHILS % (AUTO) 2.9 % (0.0-8.0); HEMATOCRIT 31.8 % (36-48); LYMPHOCYTES % (AUTO) 24.3 % (21.0-51.0); MEAN CORPUSCULAR HEMOGLOBIN 32.1 pg (27.0-33.0); MEAN CORPUSCULAR HGB CONC 32.7 g/dL (32.0-36.0); MEAN CORPUSCULAR VOLUME 98.1 fL (79-99); MONOCYTES % (AUTO) 11.1 % (3.0-13.0); NEUTROPHILS % (AUTO) 60.9 % (40.0-77.0); PLATELET COUNT (AUTO) 192 K/uL (130-400); RED BLOOD CELL COUNT(AUTO) 3.24 MIL/uL (4.00-5.50); RED CELL DISTRIBUTION WIDTH 12.8 % (11.0-15.5); WHITE BLOOD COUNT (AUTO) 7.3 K/uL (4.8-10.8)
[2023-01-31 07:16] LABS: ALBUMIN 2.5 g/dL (3.5-5.0); CREATININE 1.6 mg/dL (0.5-1.5); POTASSIUM 4.4 mmol/L (3.5-5.1); TOTAL PROTEIN, SERUM 7.1 g/dL (6.0-8.3)
[2023-01-31 08:00] VITALS: BP 125/65
[2023-01-31] MEDS: FAMOTIDINE 20MG TAB PO SCH (09:24)
[2023-01-31] MEDS: MEROPENEM 500 MG VIAL IVPB SCH ×2 (09:26→21:33)
[2023-01-31 12:00] VITALS: BP 126/74
[2023-01-31] MEDS ORDERED: ACET-2247 PO (12:23)
[2023-01-31 16:00] VITALS: BP 126/67
[2023-01-31 20:00] VITALS: BP 118/67
[2023-01-31] MEDS: ACETAMINOPHEN 325 MG TAB PO PRN (23:31)
[2023-02-01] MEDS: 0.9%NACL 1000ML 1,000 ML IV SCH ×3 (02:34→22:55)
[2023-02-01 04:00] VITALS: BP_SYST 123; BP_SYST 126; BP_DIAS 61; BP_DIAS 71
[2023-02-01 06:24] LABS: HEMATOCRIT 34.2 % (36-48); MEAN CORPUSCULAR HEMOGLOBIN 31.9 pg (27.0-33.0); MEAN CORPUSCULAR VOLUME 96.6 fL (79-99); RED BLOOD CELL COUNT(AUTO) 3.54 MIL/uL (4.00-5.50); RED CELL DISTRIBUTION WIDTH 12.5 % (11.0-15.5); WHITE BLOOD COUNT (AUTO) 6.1 K/uL (4.8-10.8)
[2023-02-01 06:51] LABS: ALBUMIN 2.8 g/dL (3.5-5.0); CREATININE 1.4 mg/dL (0.5-1.5)
[2023-02-01 08:00] VITALS: BP 129/74
[2023-02-01] MEDS: FAMOTIDINE 20MG TAB PO SCH (09:15)
[2023-02-01] MEDS: MEROPENEM 500 MG VIAL IVPB SCH ×2 (09:15→20:35)
[2023-02-01 12:00] VITALS: BP 130/74
[2023-02-01 15:50] VITALS: BP 120/66
[2023-02-01 20:00] VITALS: BP 128/75
[2023-02-02] VITALS (14 sets, daily range): BP systolic 117–175; BP diastolic 64–86
[2023-02-02 05:34] LABS: HEMATOCRIT 32.7 % (36-48); MEAN CORPUSCULAR HEMOGLOBIN 31.8 pg (27.0-33.0); MEAN CORPUSCULAR HGB CONC 33.3 g/dL (32.0-36.0); MEAN CORPUSCULAR VOLUME 95.3 fL (79-99); RED BLOOD CELL COUNT(AUTO) 3.43 MIL/uL (4.00-5.50); RED CELL DISTRIBUTION WIDTH 12.3 % (11.0-15.5); WHITE BLOOD COUNT (AUTO) 5.7 K/uL (4.8-10.8)
[2023-02-02 06:26] LABS: ALBUMIN 2.5 g/dL (3.5-5.0); CREATININE 1.5 mg/dL (0.5-1.5); MAGNESIUM 1.9 mg/dL (1.80-2.40); POTASSIUM 4.2 mmol/L (3.5-5.1); TOTAL PROTEIN, SERUM 7.2 g/dL (6.0-8.3)
[2023-02-02] MEDS: Vitamin B Complex/Vit C/Folic Acid PO SCH (08:16)
[2023-02-02] MEDS: DULOXETINE HCL 30 MG CAP PO SCH (08:16)
[2023-02-02] MEDS: FAMOTIDINE 20MG TAB PO SCH (08:16)
[2023-02-02] MEDS: MEROPENEM 500 MG VIAL IVPB SCH ×2 (08:17→20:16)
[2023-02-02] MEDS: FERROUS SULFATE 325 MG TABLET.DR PO SCH (08:20)
[2023-02-02] MEDS: 0.9%NACL 1000ML 1,000 ML IV SCH ×2 (08:45→20:17)
[2023-02-02] MEDS ORDERED: LIDOCAINE HCL 1% 20 ML VIAL ONE (12:03)
[2023-02-02] MEDS ORDERED: MIDAZOLAM HCL 1 MG/ML 2ML VIAL ONE (12:06)
[2023-02-02] MEDS ORDERED: FENTANYL CITRATE PF 50 MCG/1 ML 2ML VIAL ONE (12:06)
[2023-02-02] MEDS ORDERED: IOHEXOL-350 75 ML VIAL IV ONE (12:24)
[2023-02-02] MEDS: ACETAMINOPHEN 325 MG TAB PO PRN (20:23)
[2023-02-03] VITALS (7 sets, daily range): BP systolic 130–139; BP diastolic 70–82
[2023-02-03] MEDS: 0.9%NACL 1000ML 1,000 ML IV SCH ×3 (03:59→23:18)
[2023-02-03 05:32] LABS: MEAN CORPUSCULAR HEMOGLOBIN 31.4 pg (27.0-33.0); MEAN CORPUSCULAR HGB CONC 33.4 g/dL (32.0-36.0); MEAN CORPUSCULAR VOLUME 93.8 fL (79-99); RED BLOOD CELL COUNT(AUTO) 3.41 MIL/uL (4.00-5.50); RED CELL DISTRIBUTION WIDTH 12.1 % (11.0-15.5)
[2023-02-03 05:44] LABS: ALBUMIN 2.6 g/dL (3.5-5.0); CREATININE 1.4 mg/dL (0.5-1.5); MAGNESIUM 1.7 mg/dL (1.80-2.40); POTASSIUM 4.1 mmol/L (3.5-5.1); TOTAL PROTEIN, SERUM 7.2 g/dL (6.0-8.3)
[2023-02-03] MEDS: MEROPENEM 500 MG VIAL IVPB SCH ×2 (09:49→20:53)
[2023-02-03] MEDS: DULOXETINE HCL 30 MG CAP PO SCH (09:50)
[2023-02-03] MEDS: FERROUS SULFATE 325 MG TABLET.DR PO SCH (09:50)
[2023-02-03] MEDS: FAMOTIDINE 20MG TAB PO SCH (09:50)
[2023-02-03] MEDS: Vitamin B Complex/Vit C/Folic Acid PO SCH (11:00)
[2023-02-03] MEDS: MAGNESIUM 2GM PREMIX 50ML 50 ML IV SCH (23:17)
[2023-02-04 03:36] VITALS: BP 135/81
[2023-02-04 05:31] LABS: HEMATOCRIT 31.3 % (36-48); MEAN CORPUSCULAR HEMOGLOBIN 31.9 pg (27.0-33.0); MEAN CORPUSCULAR HGB CONC 34.5 g/dL (32.0-36.0); MEAN CORPUSCULAR VOLUME 92.3 fL (79-99); RED BLOOD CELL COUNT(AUTO) 3.39 MIL/uL (4.00-5.50); WHITE BLOOD COUNT (AUTO) 6.2 K/uL (4.8-10.8)
[2023-02-04 05:39] LABS: ALBUMIN 2.6 g/dL (3.5-5.0); CREATININE 1.2 mg/dL (0.5-1.5); MAGNESIUM 2.6 mg/dL (1.80-2.40); TOTAL PROTEIN, SERUM 7.3 g/dL (6.0-8.3)
[2023-02-04 08:00] VITALS: BP 130/77
[2023-02-04] MEDS: Vitamin B Complex/Vit C/Folic Acid PO SCH (08:11)
[2023-02-04] MEDS: MEROPENEM 500 MG VIAL IVPB SCH ×2 (08:11→20:06)
[2023-02-04] MEDS: FERROUS SULFATE 325 MG TABLET.DR PO SCH (08:11)
[2023-02-04] MEDS: DULOXETINE HCL 30 MG CAP PO SCH (08:12)
[2023-02-04] MEDS: FAMOTIDINE 20MG TAB PO SCH (08:12)
[2023-02-04 12:00] VITALS: BP 140/76
[2023-02-04 16:00] VITALS: BP 138/76
[2023-02-04 19:40] VITALS: BP 155/76
[2023-02-04] MEDS: 0.9%NACL 1000ML 1,000 ML IV SCH (20:00)
[2023-02-04 23:17] VITALS: BP 155/75
[2023-02-05 03:13] VITALS: BP 143/71
[2023-02-05] MEDS: 0.9%NACL 1000ML 1,000 ML IV SCH ×2 (05:10→18:47)
[2023-02-05 08:00] VITALS: BP 145/74
[2023-02-05] MEDS: MEROPENEM 500 MG VIAL IVPB SCH ×2 (08:23→20:00)
[2023-02-05] MEDS: FAMOTIDINE 20MG TAB PO SCH (08:23)
[2023-02-05] MEDS: AMLODIPINE 5 MG TAB PO SCH (08:23)
[2023-02-05] MEDS: FERROUS SULFATE 325 MG TABLET.DR PO SCH (08:23)
[2023-02-05] MEDS: Vitamin B Complex/Vit C/Folic Acid PO SCH (08:23)
[2023-02-05] MEDS: DULOXETINE HCL 30 MG CAP PO SCH (08:24)
[2023-02-05] MEDS ORDERED: HYDRALAZINE 20MG/ML VIAL IV PRN (08:30)
[2023-02-05 12:00] VITALS: BP 149/78
[2023-02-05 16:00] VITALS: BP 140/75
[2023-02-05 19:59] VITALS: BP 142/73
[2023-02-05 23:26] VITALS: BP 142/79
[2023-02-06] MEDS: 0.9%NACL 1000ML 1,000 ML IV SCH ×2 (01:23→20:36)
[2023-02-06 03:50] VITALS: BP 131/81
[2023-02-06 07:51] VITALS: BP 132/76
[2023-02-06] MEDS: AMLODIPINE 5 MG TAB PO SCH (09:36)
[2023-02-06] MEDS: FAMOTIDINE 20MG TAB PO SCH (09:36)
[2023-02-06] MEDS: MEROPENEM 500 MG VIAL IVPB SCH ×2 (09:36→20:30)
[2023-02-06] MEDS: DULOXETINE HCL 30 MG CAP PO SCH (09:36)
[2023-02-06] MEDS: Vitamin B Complex/Vit C/Folic Acid PO SCH (09:46)
[2023-02-06] MEDS: FERROUS SULFATE 325 MG TABLET.DR PO SCH (09:46)
[2023-02-06 11:31] VITALS: BP 137/74
[2023-02-06 16:00] VITALS: BP 132/69
[2023-02-06] MEDS: TERBINAFINE HCL 250 MG TABLET PO SCH (20:30)
[2023-02-06 21:22] VITALS: BP 134/78
[2023-02-07 00:04] VITALS: BP 143/72
[2023-02-07 04:01] VITALS: BP 136/70
[2023-02-07 07:09] LABS: HEMATOCRIT 31.8 % (36-48); MEAN CORPUSCULAR HEMOGLOBIN 31.5 pg (27.0-33.0); MEAN CORPUSCULAR HGB CONC 34.3 g/dL (32.0-36.0); MEAN CORPUSCULAR VOLUME 91.9 fL (79-99); RED BLOOD CELL COUNT(AUTO) 3.46 MIL/uL (4.00-5.50); RED CELL DISTRIBUTION WIDTH 12.1 % (11.0-15.5)
[2023-02-07 07:19] LABS: CREATININE 1.1 mg/dL (0.5-1.5); MAGNESIUM 1.7 mg/dL (1.80-2.40); POTASSIUM 4.1 mmol/L (3.5-5.1)
[2023-02-07 08:00] VITALS: BP 131/76
[2023-02-07] MEDS: Vitamin B Complex/Vit C/Folic Acid PO SCH (09:00)
[2023-02-07] MEDS: MEROPENEM 500 MG VIAL IVPB SCH ×2 (09:00→21:06)
[2023-02-07] MEDS: FERROUS SULFATE 325 MG TABLET.DR PO SCH (09:00)
[2023-02-07] MEDS: DULOXETINE HCL 30 MG CAP PO SCH (09:01)
[2023-02-07] MEDS: 0.9%NACL 1000ML 1,000 ML IV SCH ×2 (09:01→16:57)
[2023-02-07] MEDS: AMLODIPINE 5 MG TAB PO SCH (09:01)
[2023-02-07] MEDS: TERBINAFINE HCL 250 MG TABLET PO SCH ×2 (09:01→21:18)
[2023-02-07] MEDS: FAMOTIDINE 20MG TAB PO SCH (09:01)
[2023-02-07 12:00] VITALS: BP 126/74
[2023-02-07] MEDS: MAGNESIUM 2GM PREMIX 50ML 50 ML IV SCH (12:14)
[2023-02-07 16:00] VITALS: BP 139/73
[2023-02-07 20:00] VITALS: BP 132/72
[2023-02-08] VITALS: BP 128/69
[2023-02-08 04:00] VITALS: BP 120/70
[2023-02-08] MEDS: 0.9%NACL 1000ML 1,000 ML IV SCH ×2 (04:00→14:00)
[2023-02-08 08:00] VITALS: BP 124/78
[2023-02-08] MEDS: TERBINAFINE HCL 250 MG TABLET PO SCH ×2 (09:00→22:25)
[2023-02-08] MEDS: FERROUS SULFATE 325 MG TABLET.DR PO SCH (09:05)
[2023-02-08] MEDS: MEROPENEM 500 MG VIAL IVPB SCH ×2 (09:05→22:26)
[2023-02-08] MEDS: Vitamin B Complex/Vit C/Folic Acid PO SCH (09:05)
[2023-02-08] MEDS: FAMOTIDINE 20MG TAB PO SCH (09:05)
[2023-02-08] MEDS: AMLODIPINE 5 MG TAB PO SCH (09:05)
[2023-02-08] MEDS: DULOXETINE HCL 30 MG CAP PO SCH (09:05)
[2023-02-08 11:20] VITALS: BP 131/86
[2023-02-08 15:25] VITALS: BP 128/70
[2023-02-08 16:15] LABS: INR 1.02 (0.85-1.15); PROTHROMBIN TIME 11.1 SEC (9.6-11.6)
[2023-02-08 16:16] LABS: PARTIAL THROMBOPLASTIN TIME 30.7 SEC (26.3-35.5)
[2023-02-08 19:00] VITALS: BP 131/73
[2023-02-09] VITALS: BP 134/75
[2023-02-09] MEDS: 0.9%NACL 1000ML 1,000 ML IV SCH (02:10)
[2023-02-09 04:00] VITALS: BP 137/75
[2023-02-09 07:15] VITALS: BP_SYST 121; BP_SYST 140; BP_DIAS 76
[2023-02-09] MEDS: DULOXETINE HCL 30 MG CAP PO SCH (09:22)
[2023-02-09] MEDS: TERBINAFINE HCL 250 MG TABLET PO SCH (09:22)
[2023-02-09] MEDS: MEROPENEM 500 MG VIAL IVPB SCH (09:22)
[2023-02-09] MEDS: FAMOTIDINE 20MG TAB PO SCH (09:22)
[2023-02-09] MEDS: AMLODIPINE 5 MG TAB PO SCH (09:22)
[2023-02-09] MEDS: Vitamin B Complex/Vit C/Folic Acid PO SCH (09:23)
[2023-02-09] MEDS: FERROUS SULFATE 325 MG TABLET.DR PO SCH (09:23)
[2023-02-09] MEDS ORDERED: ERTAPENEM SODIUM 1 GM in 0.9%NACL 50ML 50 ML IV SCH (10:00)
[2023-02-09 11:25] VITALS: BP 132/74
[2023-02-09] MEDS ORDERED: AMLO5TAB4 PO (14:29)
== END 2023-02-09 16:30 | disposition home or self-care (01) | DRG 690 ==
LOC: EDH 16:23 → EDHIP 16:24 → 3CH 22:24
PROVIDERS: ADMIT Internal Medicine; ATTEND Internal Medicine
PROC: 0T25X0Z Change Drainage Device in Kidney, External Approach (ICD-10-PCS; principal; 2023-02-02)
DX: N13.6 Pyonephrosis (principal); C20 Malignant neoplasm of rectum; Z16.12 Extended spectrum beta lactamase (ESBL) resistance; Z20.822 Contact with and (suspected) exposure to COVID-19; N17.9 Acute kidney failure, unspecified; K57.30 Diverticulosis of large intestine without perforation or abscess without bleeding; K80.20 Calculus of gallbladder without cholecystitis without obstruction; K43.5 Parastomal hernia without obstruction or gangrene; E78.00 Pure hypercholesterolemia, unspecified; B96.20 Unspecified Escherichia coli [E. coli] as the cause of diseases classified elsewhere; N73.9 Female pelvic inflammatory disease, unspecified; N18.30 Chronic kidney disease, stage 3 unspecified; I12.9 Hypertensive chronic kidney disease with stage 1 through stage 4 chronic kidney disease, or unspecified chronic kidney disease; R53.81 Other malaise; Z93.6 Other artificial openings of urinary tract status; Z93.3 Colostomy status; Z90.49 Acquired absence of other specified parts of digestive tract
CPT/HCPCS: 10030; 36415; 36569; 50432; 50435; 74176; 80048; 80053; 81001; 83605; 83690; 83735; 84145; 85025; 85027; 85610; 85651; 85730; 86140; 87040; 87071; 87077; 87088; 87186; 87205; 87635; 93005; 99156; 99157; C1729; C1769; C1894; G0378; J1644; J2185; J2250; J2405; J2543; J3010; J3475; J7030; Q9967

== ENCOUNTER 2023-02-27 16:15 | Emergency (ER) | payer OTHER ==
[~2023-02-27] VITALS: Ht 154.9 cm; Wt 50.8 kg
[~2023-02-27 16:15] MED LIST changes: +ACET-2247 PO; +AMLO5TAB4 PO; +FERR325T29 PO; +FOLI0.8T2 PO; -LEVO25TA9 PO; +OMEP40CA21 PO
[2023-02-27 18:45] LABS: BASOPHILS % (AUTO) 0.3 % (0.0-5.0); EOSINOPHILS % (AUTO) 3.1 % (0.0-8.0); HEMATOCRIT 34.6 % (36-48); LYMPHOCYTES % (AUTO) 24.1 % (21.0-51.0); MEAN CORPUSCULAR HEMOGLOBIN 31.8 pg (27.0-33.0); MEAN CORPUSCULAR HGB CONC 32.9 g/dL (32.0-36.0); MEAN CORPUSCULAR VOLUME 96.4 fL (79-99); NEUTROPHILS % (AUTO) 59.8 % (40.0-77.0); PLATELET COUNT (AUTO) 205 K/uL (130-400); RED BLOOD CELL COUNT(AUTO) 3.59 MIL/uL (4.00-5.50); RED CELL DISTRIBUTION WIDTH 12.3 % (11.0-15.5); WHITE BLOOD COUNT (AUTO) 7.4 K/uL (4.8-10.8)
[2023-02-27 18:58] LABS: CREATININE 1.5 mg/dL (0.5-1.5); POTASSIUM 4.5 mmol/L (3.5-5.1)
[2023-02-27 19:05] LABS: ALBUMIN 3.2 g/dL (3.5-5.0); TOTAL PROTEIN, SERUM 8.1 g/dL (6.0-8.3)
[2023-02-27 19:05] LABS: APPEARANCE,URINE CLOUDY (CLEAR); COLOR,URINE LIGHT-YELLOW (YELLOW); LEUKOCYTE ESTERASE ,URINE LARGE Leu/uL (NEGATIVE); NITRATE,URINE NEGATIVE (NEGATIVE)
[2023-02-27 19:06] LABS: PROTEIN,URINE 100 mg/dL (NEGATIVE); UROBILINOGEN,URINE 0.2 mg/dL (0.2-1.0)
[2023-02-27 19:07] LABS: OCCULT BLOOD,URINE LARGE (NEGATIVE)
[2023-02-27 19:08] LABS: BILIRUBIN,URINE NEGATIVE (NEGATIVE); GLUCOSE, URINE (UA) NEGATIVE (NEGATIVE); KETONES,URINE TRACE mg/dL (NEGATIVE)
[2023-02-27 19:12] LABS: BACTERIA,URINE FEW /HPF (None Seen); MUCUS,URINE RARE LPF (None Seen); RBC,URINE 26-50 /HPF (0-1); WBC,URINE TNTC /HPF (0-1); YEAST,URINE BUDDING FEW /HPF (None Seen)
[2023-02-27] MEDS ORDERED: DOXY-252 PO (19:45)
[2023-02-27 20:19] VITALS: BP 132/74
== END 2023-02-27 20:47 | disposition home or self-care (01) ==
LOC: EDH 16:15
DX: N99.528 Other complication of incontinent external stoma of urinary tract (principal); N39.0 Urinary tract infection, site not specified; I10 Essential (primary) hypertension; E78.00 Pure hypercholesterolemia, unspecified; Z88.8 Allergy status to other drugs, medicaments and biological substances; Z79.899 Other long term (current) drug therapy
CPT/HCPCS: 36415; 80053; 81001; 85025; 87088

== ENCOUNTER 2023-03-17 10:00 | Day surgery (SDC) | payer OTHER ==
[2023-03-13 11:36] LABS: BASOPHILS % (AUTO) 0.3 % (0.0-5.0); LYMPHOCYTES % (AUTO) 28.3 % (21.0-51.0); MEAN CORPUSCULAR HEMOGLOBIN 31.6 pg (27.0-33.0); MEAN CORPUSCULAR HGB CONC 32.9 g/dL (32.0-36.0); MEAN CORPUSCULAR VOLUME 96.2 fL (79-99); MONOCYTES % (AUTO) 9.4 % (3.0-13.0); NEUTROPHILS % (AUTO) 59.7 % (40.0-77.0); PLATELET COUNT (AUTO) 217 K/uL (130-400); RED BLOOD CELL COUNT(AUTO) 3.95 MIL/uL (4.00-5.50); RED CELL DISTRIBUTION WIDTH 12.1 % (11.0-15.5); WHITE BLOOD COUNT (AUTO) 7.4 K/uL (4.8-10.8)
[2023-03-13 11:43] LABS: CREATININE 1.5 mg/dL (0.5-1.5); POTASSIUM 4.6 mmol/L (3.5-5.1)
[2023-03-13 11:45] LABS: INR 1.01 (0.85-1.15)
[2023-03-13 11:47] LABS: PARTIAL THROMBOPLASTIN TIME 30.6 SEC (26.3-35.5)
[2023-03-13 11:56] VITALS: BP 141/69
[~2023-03-17] VITALS: Ht 162.6 cm; Wt 52.1 kg
[~2023-03-17 10:00] MED LIST changes: -ACET-2247 PO; -AMLO5TAB4 PO; +DOXY-252 PO; -DULO30CA2 PO; -FOLI0.8T2 PO; -OMEP40CA21 PO
[2023-03-17] MEDS ORDERED: IOHEXOL-350 50ML VIAL IV ONE (12:42)
[2023-03-17 13:20] VITALS: BP 148/59
[2023-03-17 13:35] VITALS: BP 146/67
[2023-03-17 13:50] VITALS: BP 139/65
== END 2023-03-17 14:00 | disposition home or self-care (01) ==
LOC: DAH 10:00
PROVIDERS: ATTEND Urology
DX: N13.1 Hydronephrosis with ureteral stricture, not elsewhere classified (principal); Z80.0 Family history of malignant neoplasm of digestive organs; Z98.890 Other specified postprocedural states; Z79.01 Long term (current) use of anticoagulants; Z79.899 Other long term (current) drug therapy
CPT/HCPCS: 80048; 85025; 85610; 85730; 36415; 50431; A4663; J1644; Q9967; A4215; A4222; A4221; A4216; A4606; A4223 ×3

== ENCOUNTER 2023-04-04 20:20 | Inpatient (IN) | payer OTHER ==
[~2023-04-04] VITALS: Ht 157.5 cm; Wt 53.7 kg
[2023-04-04 22:27] LABS: BASOPHILS % (AUTO) 0.2 % (0.0-5.0); EOSINOPHILS % (AUTO) 0.3 % (0.0-8.0); HEMATOCRIT 38.4 % (36-48); LYMPHOCYTES % (AUTO) 8.7 % (21.0-51.0); MEAN CORPUSCULAR HEMOGLOBIN 31.4 pg (27.0-33.0); MEAN CORPUSCULAR HGB CONC 33.6 g/dL (32.0-36.0); MEAN CORPUSCULAR VOLUME 93.4 fL (79-99); MONOCYTES % (AUTO) 6.7 % (3.0-13.0); NEUTROPHILS % (AUTO) 83.6 % (40.0-77.0); PLATELET COUNT (AUTO) 178 K/uL (130-400); RED BLOOD CELL COUNT(AUTO) 4.11 MIL/uL (4.00-5.50); RED CELL DISTRIBUTION WIDTH 11.9 % (11.0-15.5); WHITE BLOOD COUNT (AUTO) 12.6 K/uL (4.8-10.8)
[2023-04-04 22:45] LABS: CREATININE 1.9 mg/dL (0.5-1.5)
[2023-04-04 22:54] LABS: ALBUMIN 3.5 g/dL (3.5-5.0); TOTAL PROTEIN, SERUM 9.1 g/dL (6.0-8.3)
[2023-04-05] VITALS (25 sets, daily range): BP systolic 77–133; BP diastolic 39–71
[2023-04-05] MEDS ORDERED: ACETAMINOPHEN 325 MG TAB ONE (01:27)
[2023-04-05] MEDS ORDERED: ONDANSETRON 4MG INJ ONE (01:28)
[2023-04-05] MEDS ORDERED: HYDROMORPHONE 1 MG INJ ONE (01:28)
[2023-04-05] MEDS ORDERED: HYDROMORPHONE 1 MG INJ IVP ONE (01:30)
[2023-04-05] MEDS ORDERED: ACETAMINOPHEN 325 MG TAB PO ONE (01:30)
[2023-04-05] MEDS ORDERED: ONDANSETRON 4MG INJ IVP ONE (01:30)
[2023-04-05] MEDS ORDERED: ACETAMINOPHEN 325 MG TAB PO PRN (02:00)
[2023-04-05] MEDS ORDERED: NITROGLYCERIN 0.4 MG SL TAB SL PRN (02:00)
[2023-04-05] MEDS ORDERED: 0.9%NACL 1000ML 1,000 ML IV SCH ×4 (02:00→20:30)
[2023-04-05] MEDS ORDERED: ONDANSETRON 4MG INJ IV PRN (02:00)
[2023-04-05 02:24] LABS: INR 0.94 (0.85-1.15); PROTHROMBIN TIME 10.9 SEC (9.6-11.6)
[2023-04-05 02:26] LABS: PARTIAL THROMBOPLASTIN TIME 28.5 SEC (26.3-35.5)
[2023-04-05] MEDS ORDERED: LACTULOSE 20 GM/30 ML UDCUP PO ONE (02:30)
[2023-04-05] MEDS ORDERED: HYDROMORPHONE 0.5 MG SYG (0.5MG/0.5ML) IVP PRN (02:30)
[2023-04-05] MEDS ORDERED: HYDROCODONE/ACETAMINOPHEN 5/325 MG TAB PO PRN (02:30)
[2023-04-05] MEDS ORDERED: SENNOSIDES 8.6 MG TABLET PO PRN (02:30)
[2023-04-05] MEDS: MEROPENEM 1 GM VIAL IVPB SCH ×3 (02:31→18:20)
[2023-04-05] MEDS: 0.9%NACL 1000ML 1,000 ML IV SCH ×2 (04:25→16:13)
[2023-04-05 04:56] LABS: APPEARANCE,URINE CLOUDY (CLEAR); BILIRUBIN,URINE NEGATIVE (NEGATIVE); COLOR,URINE LIGHT-YELLOW (YELLOW); GLUCOSE, URINE (UA) NEGATIVE (NEGATIVE); KETONES,URINE NEGATIVE (NEGATIVE); LEUKOCYTE ESTERASE ,URINE 500 Leu/uL (NEGATIVE); NITRATE,URINE 1+ (NEGATIVE); OCCULT BLOOD,URINE LARGE (NEGATIVE); PROTEIN,URINE 100 mg/dL (NEGATIVE); UROBILINOGEN,URINE 0.2 mg/dL (0.2-1.0)
[2023-04-05 05:03] LABS: MUCUS,URINE RARE LPF (None Seen); WBC,URINE TNTC /HPF (0-1)
[2023-04-05 05:11] LABS: BACTERIA,URINE Moderate /HPF (None Seen)
[2023-04-05] MEDS ORDERED: DULO30CA52 PO (05:39)
[2023-04-05] MEDS ORDERED: FOLI0.8T2 PO (05:39)
[2023-04-05] MEDS ORDERED: FERR-82 PO (05:39)
[2023-04-05] MEDS: ACETAMINOPHEN 325 MG TAB PO PRN (06:16)
[2023-04-05 07:46] LABS: ALBUMIN 2.6 g/dL (3.5-5.0); CREATININE 2.4 mg/dL (0.5-1.5); MAGNESIUM 1.6 mg/dL (1.80-2.40); TOTAL PROTEIN, SERUM 7.2 g/dL (6.0-8.3)
[2023-04-05 08:15] LABS: BASOPHILS % (AUTO) 0.2 % (0.0-5.0); HEMATOCRIT 36.3 % (36-48); LYMPHOCYTES % (AUTO) 1.9 % (21.0-51.0); MEAN CORPUSCULAR HEMOGLOBIN 31.8 pg (27.0-33.0); MEAN CORPUSCULAR HGB CONC 33.3 g/dL (32.0-36.0); MEAN CORPUSCULAR VOLUME 95.3 fL (79-99); MONOCYTES % (AUTO) 1.9 % (3.0-13.0); NEUTROPHILS % (AUTO) 94.3 % (40.0-77.0); PLATELET COUNT (AUTO) 92 K/uL (130-400); RED BLOOD CELL COUNT(AUTO) 3.81 MIL/uL (4.00-5.50); RED CELL DISTRIBUTION WIDTH 12.4 % (11.0-15.5); WHITE BLOOD COUNT (AUTO) 15.9 K/uL (4.8-10.8)
[2023-04-05] MEDS: FAMOTIDINE 20MG TAB PO SCH (08:44)
[2023-04-05] MEDS: HEPARIN 5,000 UNIT VIAL SQ SCH ×3 (09:00→19:36)
[2023-04-05] MEDS: POLYETHYLENE GLYCOL 3350 17 GM POWD.PACK PO SCH (12:32)
[2023-04-05] MEDS ORDERED: LIDOCAINE HCL 1% MDV 50ML VIAL ONE (16:25)
[2023-04-05] MEDS ORDERED: IOHEXOL-350 50ML VIAL IV ONE (16:26)
[2023-04-05] MEDS ORDERED: 0.9% NACL 500ML IV.SOLN 500 ML IV ONE (19:00)
[2023-04-05] MEDS ORDERED: 0.9% NACL 500ML IV.SOLN 500 ML IV SCH (19:30)
[2023-04-05] MEDS: SODIUM BICARBONATE 650 MG TAB PO SCH (19:52)
[2023-04-05] MEDS ORDERED: NOREPINEPHRIN 4MG/NS 250ML 250 ML IV SCH ×2 (20:30→22:00)
[2023-04-06] VITALS (80 sets, daily range): BP systolic 91–135; BP diastolic 40–89
[2023-04-06] MEDS: MEROPENEM 1 GM VIAL IVPB SCH ×3 (02:20→17:37)
[2023-04-06 03:38] LABS: HEMATOCRIT 32.7 % (36-48); MEAN CORPUSCULAR HEMOGLOBIN 31.4 pg (27.0-33.0); MEAN CORPUSCULAR HGB CONC 32.7 g/dL (32.0-36.0); MEAN CORPUSCULAR VOLUME 95.9 fL (79-99); PLATELET COUNT (AUTO) 82 K/uL (130-400); RED BLOOD CELL COUNT(AUTO) 3.41 MIL/uL (4.00-5.50); RED CELL DISTRIBUTION WIDTH 12.7 % (11.0-15.5); WHITE BLOOD COUNT (AUTO) 22.8 K/uL (4.8-10.8)
[2023-04-06 03:59] LABS: ALBUMIN 2.1 g/dL (3.5-5.0); CREATININE 2.3 mg/dL (0.5-1.5); PHOSPHORUS 3.4 mg/dL (2.5-4.9); POTASSIUM 4.5 mmol/L (3.5-5.1)
[2023-04-06 04:01] LABS: MAGNESIUM 1.6 mg/dL (1.80-2.40); TOTAL PROTEIN, SERUM 6.4 g/dL (6.0-8.3); URIC ACID 5.8 mg/dL (2.6-7.2)
[2023-04-06 04:09] LABS: BAND NEUTROPHILS % (MANUAL) 31 % (0-2); EOSINOPHILS % (MANUAL) 1 % (1-6); LYMPHOCYTES % (MANUAL) 2 % (22-44); MAN.DIFF COMMENT-IMPRESSION MANUAL DIFFERENTIAL; METAMYELOCYTES % 2 % (0-0); MONOCYTES % (MANUAL) 1 % (2-9); MYELOCYTES % 1 % (0-0); SEGMENTED NEUTROPHILS % 62 % (40-70)
[2023-04-06 04:11] LABS: PLATELET MORPHOLOGY COMMENT DECREASED
[2023-04-06] MEDS: 0.9%NACL 1000ML 1,000 ML IV SCH ×2 (04:22→10:52)
[2023-04-06] MEDS ORDERED: MAGNESIUM OXIDE 400 MG TABLET PO ONE ×2 (09:00→09:05)
[2023-04-06] MEDS ORDERED: MIDODRINE HCL 5 MG TABLET ONE (09:05)
[2023-04-06] MEDS: POLYETHYLENE GLYCOL 3350 17 GM POWD.PACK PO SCH (09:07)
[2023-04-06] MEDS: SODIUM BICARBONATE 650 MG TAB PO SCH ×2 (09:08→20:42)
[2023-04-06] MEDS: MIDODRINE HCL 5 MG TABLET PO SCH ×3 (09:08→20:42)
[2023-04-06] MEDS: FAMOTIDINE 20MG TAB PO SCH (09:08)
[2023-04-06] MEDS: Vitamin B Complex/Vit C/Folic Acid PO SCH (09:08)
[2023-04-06] MEDS: HEPARIN 5,000 UNIT VIAL SQ SCH ×3 (09:09→20:42)
[2023-04-06] MEDS: ACETAMINOPHEN 325 MG TAB PO PRN (10:58)
[2023-04-06] MEDS: HYDROCORTISONE SOD SUCCINATE 100 MG/2 ML VIAL IV SCH ×3 (12:02→20:42)
[2023-04-07] MEDS: MEROPENEM 1 GM VIAL IVPB SCH ×3 (02:15→18:59)
[2023-04-07 03:41] VITALS: BP 131/59
[2023-04-07] MEDS: HYDROCORTISONE SOD SUCCINATE 100 MG/2 ML VIAL IV SCH ×4 (04:25→23:08)
[2023-04-07] MEDS: 0.9%NACL 1000ML 1,000 ML IV SCH ×2 (04:25→21:39)
[2023-04-07 04:42] LABS: HEMATOCRIT 31.8 % (36-48); MEAN CORPUSCULAR HEMOGLOBIN 31.2 pg (27.0-33.0); MEAN CORPUSCULAR HGB CONC 32.7 g/dL (32.0-36.0); MEAN CORPUSCULAR VOLUME 95.5 fL (79-99); RED BLOOD CELL COUNT(AUTO) 3.33 MIL/uL (4.00-5.50); RED CELL DISTRIBUTION WIDTH 12.7 % (11.0-15.5); WHITE BLOOD COUNT (AUTO) 19.9 K/uL (4.8-10.8)
[2023-04-07 05:04] LABS: CREATININE 1.7 mg/dL (0.5-1.5); MAGNESIUM 1.7 mg/dL (1.80-2.40)
[2023-04-07 08:00] VITALS: BP 128/67
[2023-04-07] MEDS: HEPARIN 5,000 UNIT VIAL SQ SCH ×3 (09:00→21:37)
[2023-04-07] MEDS: FAMOTIDINE 20MG TAB PO SCH (09:23)
[2023-04-07] MEDS: Vitamin B Complex/Vit C/Folic Acid PO SCH (09:23)
[2023-04-07] MEDS: SODIUM BICARBONATE 650 MG TAB PO SCH ×2 (09:23→21:36)
[2023-04-07] MEDS: MIDODRINE HCL 5 MG TABLET PO SCH ×3 (09:24→21:00)
[2023-04-07] MEDS: POLYETHYLENE GLYCOL 3350 17 GM POWD.PACK PO SCH (09:28)
[2023-04-07 12:00] VITALS: BP 139/57
[2023-04-07] MEDS: MAGNESIUM 2GM PREMIX 50ML 50 ML IV PRN (16:44)
[2023-04-07 20:00] VITALS: BP 137/67
[2023-04-08] VITALS (7 sets, daily range): BP systolic 121–135; BP diastolic 57–67
[2023-04-08] MEDS: MEROPENEM 1 GM VIAL IVPB SCH ×3 (02:07→18:30)
[2023-04-08] MEDS: HYDROCORTISONE SOD SUCCINATE 100 MG/2 ML VIAL IV SCH ×2 (05:15→09:32)
[2023-04-08 06:27] LABS: HEMATOCRIT 33.2 % (36-48); MEAN CORPUSCULAR HEMOGLOBIN 31.3 pg (27.0-33.0); MEAN CORPUSCULAR HGB CONC 33.1 g/dL (32.0-36.0); MEAN CORPUSCULAR VOLUME 94.6 fL (79-99); PLATELET COUNT (AUTO) 102 K/uL (130-400); RED BLOOD CELL COUNT(AUTO) 3.51 MIL/uL (4.00-5.50); RED CELL DISTRIBUTION WIDTH 12.4 % (11.0-15.5); WHITE BLOOD COUNT (AUTO) 12.5 K/uL (4.8-10.8)
[2023-04-08 06:44] LABS: ALBUMIN 1.9 g/dL (3.5-5.0); CREATININE 1.4 mg/dL (0.5-1.5); PHOSPHORUS 3.5 mg/dL (2.5-4.9); POTASSIUM 3.5 mmol/L (3.5-5.1); TOTAL PROTEIN, SERUM 6.1 g/dL (6.0-8.3)
[2023-04-08 07:11] LABS: BAND NEUTROPHILS % (MANUAL) 5 % (0-2); LYMPHOCYTES % (MANUAL) 9 % (22-44); MAN.DIFF COMMENT-IMPRESSION MANUAL DIFFERENTIAL; MONOCYTES % (MANUAL) 1 % (2-9); SEGMENTED NEUTROPHILS % 85 % (40-70)
[2023-04-08 07:12] LABS: PLATELET MORPHOLOGY COMMENT SLIGHTLY DECREASED
[2023-04-08] MEDS: MIDODRINE HCL 5 MG TABLET PO SCH ×3 (09:00→21:00)
[2023-04-08] MEDS: SODIUM BICARBONATE 650 MG TAB PO SCH ×2 (09:23→19:53)
[2023-04-08] MEDS: FAMOTIDINE 20MG TAB PO SCH (09:23)
[2023-04-08] MEDS: Vitamin B Complex/Vit C/Folic Acid PO SCH (09:23)
[2023-04-08] MEDS: POLYETHYLENE GLYCOL 3350 17 GM POWD.PACK PO SCH (09:23)
[2023-04-08] MEDS: HEPARIN 5,000 UNIT VIAL SQ SCH ×3 (09:25→19:54)
[2023-04-08] MEDS: 0.9%NACL 1000ML 1,000 ML IV SCH (16:06)
[2023-04-09] MEDS: 0.9%NACL 1000ML 1,000 ML IV SCH ×2 (00:15→13:26)
[2023-04-09] MEDS: MEROPENEM 1 GM VIAL IVPB SCH ×3 (02:01→17:59)
[2023-04-09 04:00] VITALS: BP 122/71
[2023-04-09 04:42] LABS: BASOPHILS % (AUTO) 0.1 % (0.0-5.0); EOSINOPHILS % (AUTO) 0.7 % (0.0-8.0); HEMATOCRIT 31.2 % (36-48); LYMPHOCYTES % (AUTO) 33.1 % (21.0-51.0); MEAN CORPUSCULAR HEMOGLOBIN 31.6 pg (27.0-33.0); MEAN CORPUSCULAR HGB CONC 34.3 g/dL (32.0-36.0); MONOCYTES % (AUTO) 10.7 % (3.0-13.0); NEUTROPHILS % (AUTO) 53.2 % (40.0-77.0); PLATELET COUNT (AUTO) 96 K/uL (130-400); RED BLOOD CELL COUNT(AUTO) 3.39 MIL/uL (4.00-5.50); RED CELL DISTRIBUTION WIDTH 12.3 % (11.0-15.5); WHITE BLOOD COUNT (AUTO) 6.8 K/uL (4.8-10.8)
[2023-04-09 04:58] LABS: CREATININE 1.3 mg/dL (0.5-1.5); PHOSPHORUS 2.6 mg/dL (2.5-4.9); POTASSIUM 3.2 mmol/L (3.5-5.1)
[2023-04-09 08:00] VITALS: BP 130/61
[2023-04-09] MEDS: HEPARIN 5,000 UNIT VIAL SQ SCH ×2 (09:00→13:55)
[2023-04-09] MEDS: POLYETHYLENE GLYCOL 3350 17 GM POWD.PACK PO SCH (09:06)
[2023-04-09] MEDS: MIDODRINE HCL 5 MG TABLET PO SCH ×3 (09:06→21:46)
[2023-04-09] MEDS: SODIUM BICARBONATE 650 MG TAB PO SCH ×2 (09:06→21:46)
[2023-04-09] MEDS: Vitamin B Complex/Vit C/Folic Acid PO SCH (09:07)
[2023-04-09] MEDS: FAMOTIDINE 20MG TAB PO SCH (09:07)
[2023-04-09] MEDS ORDERED: KCL 20 MEQ ERTAB PO ONE (09:30)
[2023-04-09 12:00] VITALS: BP 136/66
[2023-04-09 16:00] VITALS: BP 136/72
[2023-04-09 20:27] VITALS: BP 150/61
[2023-04-10] VITALS (7 sets, daily range): BP systolic 133–150; BP diastolic 68–77
[2023-04-10] MEDS: MEROPENEM 1 GM VIAL IVPB SCH ×3 (01:18→18:30)
[2023-04-10 04:44] LABS: BASOPHILS % (AUTO) 0.3 % (0.0-5.0); EOSINOPHILS % (AUTO) 2.2 % (0.0-8.0); HEMATOCRIT 32.3 % (36-48); LYMPHOCYTES % (AUTO) 26.3 % (21.0-51.0); MEAN CORPUSCULAR HEMOGLOBIN 31.4 pg (27.0-33.0); MEAN CORPUSCULAR HGB CONC 33.7 g/dL (32.0-36.0); MEAN CORPUSCULAR VOLUME 93.1 fL (79-99); MONOCYTES % (AUTO) 11.6 % (3.0-13.0); NEUTROPHILS % (AUTO) 54.5 % (40.0-77.0); PLATELET COUNT (AUTO) 121 K/uL (130-400); RED BLOOD CELL COUNT(AUTO) 3.47 MIL/uL (4.00-5.50); RED CELL DISTRIBUTION WIDTH 12.1 % (11.0-15.5); WHITE BLOOD COUNT (AUTO) 7.3 K/uL (4.8-10.8)
[2023-04-10 05:21] LABS: ALBUMIN 1.8 g/dL (3.5-5.0); CREATININE 1.4 mg/dL (0.5-1.5); MAGNESIUM 1.5 mg/dL (1.80-2.40); PHOSPHORUS 2.7 mg/dL (2.5-4.9); POTASSIUM 3.6 mmol/L (3.5-5.1); TOTAL PROTEIN, SERUM 5.5 g/dL (6.0-8.3)
[2023-04-10] MEDS: 0.9%NACL 1000ML 1,000 ML IV SCH ×2 (07:06→15:46)
[2023-04-10] MEDS: FAMOTIDINE 20MG TAB PO SCH (08:55)
[2023-04-10] MEDS: Vitamin B Complex/Vit C/Folic Acid PO SCH (08:55)
[2023-04-10] MEDS: MIDODRINE HCL 5 MG TABLET PO SCH ×3 (08:55→20:29)
[2023-04-10] MEDS: POLYETHYLENE GLYCOL 3350 17 GM POWD.PACK PO SCH (08:55)
[2023-04-10] MEDS: SODIUM BICARBONATE 650 MG TAB PO SCH ×2 (08:55→20:31)
[2023-04-10] MEDS: MAGNESIUM 2GM PREMIX 50ML 50 ML IV PRN (13:53)
[2023-04-11] MEDS: MEROPENEM 1 GM VIAL IVPB SCH ×3 (02:05→18:46)
[2023-04-11] MEDS: 0.9%NACL 1000ML 1,000 ML IV SCH ×2 (02:05→18:52)
[2023-04-11 04:00] VITALS: BP 126/73
[2023-04-11 05:43] LABS: BASOPHILS % (AUTO) 0.4 % (0.0-5.0); EOSINOPHILS % (AUTO) 4.3 % (0.0-8.0); HEMATOCRIT 32.2 % (36-48); MEAN CORPUSCULAR HEMOGLOBIN 31.5 pg (27.0-33.0); MEAN CORPUSCULAR HGB CONC 34.8 g/dL (32.0-36.0); MEAN CORPUSCULAR VOLUME 90.7 fL (79-99); PLATELET COUNT (AUTO) 146 K/uL (130-400); RED BLOOD CELL COUNT(AUTO) 3.55 MIL/uL (4.00-5.50); RED CELL DISTRIBUTION WIDTH 11.9 % (11.0-15.5); WHITE BLOOD COUNT (AUTO) 7.3 K/uL (4.8-10.8)
[2023-04-11 06:03] LABS: CREATININE 1.1 mg/dL (0.5-1.5); POTASSIUM 3.3 mmol/L (3.5-5.1); TOTAL PROTEIN, SERUM 6.1 g/dL (6.0-8.3)
[2023-04-11 08:00] VITALS: BP 162/89
[2023-04-11] MEDS: Vitamin B Complex/Vit C/Folic Acid PO SCH (09:00)
[2023-04-11] MEDS: POLYETHYLENE GLYCOL 3350 17 GM POWD.PACK PO SCH (10:14)
[2023-04-11] MEDS: FAMOTIDINE 20MG TAB PO SCH (10:15)
[2023-04-11] MEDS: MIDODRINE HCL 5 MG TABLET PO SCH ×3 (10:15→21:00)
[2023-04-11] MEDS: SODIUM BICARBONATE 650 MG TAB PO SCH ×2 (10:17→22:20)
[2023-04-11 11:30] VITALS: BP 163/79
[2023-04-11 16:00] VITALS: BP 132/65
[2023-04-11 19:00] VITALS: BP 154/57
[2023-04-12] VITALS (7 sets, daily range): BP systolic 125–154; BP diastolic 51–76
[2023-04-12] MEDS: MEROPENEM 1 GM VIAL IVPB SCH ×3 (01:46→20:06)
[2023-04-12 05:46] LABS: BASOPHILS % (AUTO) 0.2 % (0.0-5.0); EOSINOPHILS % (AUTO) 4.6 % (0.0-8.0); LYMPHOCYTES % (AUTO) 29.2 % (21.0-51.0); MEAN CORPUSCULAR HEMOGLOBIN 31.1 pg (27.0-33.0); MEAN CORPUSCULAR HGB CONC 33.4 g/dL (32.0-36.0); MONOCYTES % (AUTO) 11.9 % (3.0-13.0); NEUTROPHILS % (AUTO) 49.7 % (40.0-77.0); PLATELET COUNT (AUTO) 180 K/uL (130-400); RED BLOOD CELL COUNT(AUTO) 3.44 MIL/uL (4.00-5.50); RED CELL DISTRIBUTION WIDTH 11.9 % (11.0-15.5); WHITE BLOOD COUNT (AUTO) 6.1 K/uL (4.8-10.8)
[2023-04-12 06:23] LABS: CREATININE 1.1 mg/dL (0.5-1.5); POTASSIUM 3.5 mmol/L (3.5-5.1)
[2023-04-12] MEDS: FAMOTIDINE 20MG TAB PO SCH (09:49)
[2023-04-12] MEDS: POLYETHYLENE GLYCOL 3350 17 GM POWD.PACK PO SCH (09:49)
[2023-04-12] MEDS: 0.9%NACL 1000ML 1,000 ML IV SCH ×2 (09:49→20:54)
[2023-04-12] MEDS: MIDODRINE HCL 5 MG TABLET PO SCH ×3 (09:49→20:50)
[2023-04-12] MEDS: SODIUM BICARBONATE 650 MG TAB PO SCH ×2 (09:49→20:50)
[2023-04-12] MEDS: Vitamin B Complex/Vit C/Folic Acid PO SCH (14:39)
[2023-04-13] MEDS: MEROPENEM 1 GM VIAL IVPB SCH ×3 (01:20→18:19)
[2023-04-13 03:38] VITALS: BP 156/77
[2023-04-13 08:00] VITALS: BP 138/72
[2023-04-13] MEDS: FAMOTIDINE 20MG TAB PO SCH (09:15)
[2023-04-13] MEDS: MIDODRINE HCL 5 MG TABLET PO SCH ×3 (09:15→20:00)
[2023-04-13] MEDS: POLYETHYLENE GLYCOL 3350 17 GM POWD.PACK PO SCH (09:15)
[2023-04-13] MEDS: SODIUM BICARBONATE 650 MG TAB PO SCH ×2 (09:15→20:00)
[2023-04-13] MEDS: Vitamin B Complex/Vit C/Folic Acid PO SCH (09:34)
[2023-04-13] MEDS: 0.9%NACL 1000ML 1,000 ML IV SCH ×2 (09:35→23:50)
[2023-04-13 11:56] VITALS: BP 132/76
[2023-04-13 15:43] VITALS: BP 128/71
[2023-04-13 19:40] VITALS: BP 137/60
[2023-04-13 23:11] VITALS: BP 134/62
[2023-04-14] MEDS: MEROPENEM 1 GM VIAL IVPB SCH ×3 (01:58→18:20)
[2023-04-14 04:10] VITALS: BP 151/77
[2023-04-14 05:33] LABS: BASOPHILS % (AUTO) 0.2 % (0.0-5.0); EOSINOPHILS % (AUTO) 3.7 % (0.0-8.0); HEMATOCRIT 32.9 % (36-48); LYMPHOCYTES % (AUTO) 25.9 % (21.0-51.0); MEAN CORPUSCULAR HEMOGLOBIN 31.2 pg (27.0-33.0); MEAN CORPUSCULAR HGB CONC 33.1 g/dL (32.0-36.0); MEAN CORPUSCULAR VOLUME 94.3 fL (79-99); MONOCYTES % (AUTO) 12.5 % (3.0-13.0); NEUTROPHILS % (AUTO) 55.6 % (40.0-77.0); PLATELET COUNT (AUTO) 244 K/uL (130-400); RED BLOOD CELL COUNT(AUTO) 3.49 MIL/uL (4.00-5.50); RED CELL DISTRIBUTION WIDTH 12.1 % (11.0-15.5); WHITE BLOOD COUNT (AUTO) 6.3 K/uL (4.8-10.8)
[2023-04-14 05:46] LABS: ALBUMIN 2.5 g/dL (3.5-5.0); CREATININE 1.2 mg/dL (0.5-1.5); MAGNESIUM 2.2 mg/dL (1.80-2.40); POTASSIUM 4.5 mmol/L (3.5-5.1); TOTAL PROTEIN, SERUM 7.3 g/dL (6.0-8.3)
[2023-04-14 08:06] VITALS: BP 130/65
[2023-04-14] MEDS: SODIUM BICARBONATE 650 MG TAB PO SCH ×2 (08:38→19:36)
[2023-04-14] MEDS: MIDODRINE HCL 5 MG TABLET PO SCH ×3 (08:38→19:36)
[2023-04-14] MEDS: POLYETHYLENE GLYCOL 3350 17 GM POWD.PACK PO SCH (08:38)
[2023-04-14] MEDS: FAMOTIDINE 20MG TAB PO SCH (08:38)
[2023-04-14] MEDS: Vitamin B Complex/Vit C/Folic Acid PO SCH (08:42)
[2023-04-14] MEDS ORDERED: SODI650T PO (10:18)
[2023-04-14] MEDS ORDERED: AMLO2.5T2 PO (10:22)
[2023-04-14 11:37] VITALS: BP 133/70
[2023-04-14] MEDS: 0.9%NACL 1000ML 1,000 ML IV SCH ×2 (13:27→19:37)
[2023-04-14 16:18] VITALS: BP 135/62
[2023-04-14 20:14] VITALS: BP 127/81
[2023-04-14 23:07] VITALS: BP 149/73
[2023-04-15] MEDS: MEROPENEM 1 GM VIAL IVPB SCH ×3 (02:22→17:23)
[2023-04-15] MEDS: 0.9%NACL 1000ML 1,000 ML IV SCH ×2 (03:06→14:18)
[2023-04-15 03:58] VITALS: BP 128/74
[2023-04-15 05:31] LABS: BASOPHILS % (AUTO) 0.2 % (0.0-5.0); EOSINOPHILS % (AUTO) 3.3 % (0.0-8.0); HEMATOCRIT 35.1 % (36-48); MEAN CORPUSCULAR HGB CONC 32.2 g/dL (32.0-36.0); MEAN CORPUSCULAR VOLUME 96.2 fL (79-99); NEUTROPHILS % (AUTO) 60.5 % (40.0-77.0); PLATELET COUNT (AUTO) 243 K/uL (130-400); RED BLOOD CELL COUNT(AUTO) 3.65 MIL/uL (4.00-5.50); RED CELL DISTRIBUTION WIDTH 12.1 % (11.0-15.5); WHITE BLOOD COUNT (AUTO) 6.1 K/uL (4.8-10.8)
[2023-04-15 07:19] LABS: ALBUMIN 2.6 g/dL (3.5-5.0); CREATININE 1.1 mg/dL (0.5-1.5); MAGNESIUM 2.4 mg/dL (1.80-2.40); POTASSIUM 4.6 mmol/L (3.5-5.1); TOTAL PROTEIN, SERUM 7.4 g/dL (6.0-8.3)
[2023-04-15 08:00] VITALS: BP_SYST 140; BP_SYST 153; BP_DIAS 69; BP_DIAS 88
[2023-04-15] MEDS: POLYETHYLENE GLYCOL 3350 17 GM POWD.PACK PO SCH (09:45)
[2023-04-15] MEDS: FAMOTIDINE 20MG TAB PO SCH (09:45)
[2023-04-15] MEDS: Vitamin B Complex/Vit C/Folic Acid PO SCH (09:45)
[2023-04-15] MEDS: SODIUM BICARBONATE 650 MG TAB PO SCH ×2 (09:45→20:10)
[2023-04-15] MEDS: MIDODRINE HCL 5 MG TABLET PO SCH ×3 (09:45→20:12)
[2023-04-15 11:36] VITALS: BP 125/65
[2023-04-15 16:00] VITALS: BP 121/65
[2023-04-15 19:25] VITALS: BP 111/60
[2023-04-15 23:30] VITALS: BP 143/78
[2023-04-16] MEDS: MEROPENEM 1 GM VIAL IVPB SCH ×3 (01:34→18:49)
[2023-04-16 03:57] VITALS: BP 128/69
[2023-04-16] MEDS: 0.9%NACL 1000ML 1,000 ML IV SCH ×2 (04:13→18:30)
[2023-04-16 05:47] LABS: BASOPHILS % (AUTO) 0.2 % (0.0-5.0); EOSINOPHILS % (AUTO) 3.4 % (0.0-8.0); HEMATOCRIT 33.6 % (36-48); LYMPHOCYTES % (AUTO) 23.7 % (21.0-51.0); MEAN CORPUSCULAR HEMOGLOBIN 30.7 pg (27.0-33.0); MEAN CORPUSCULAR HGB CONC 31.8 g/dL (32.0-36.0); MEAN CORPUSCULAR VOLUME 96.6 fL (79-99); MONOCYTES % (AUTO) 12.6 % (3.0-13.0); NEUTROPHILS % (AUTO) 59.1 % (40.0-77.0); PLATELET COUNT (AUTO) 248 K/uL (130-400); RED BLOOD CELL COUNT(AUTO) 3.48 MIL/uL (4.00-5.50); RED CELL DISTRIBUTION WIDTH 12.2 % (11.0-15.5); WHITE BLOOD COUNT (AUTO) 6.2 K/uL (4.8-10.8)
[2023-04-16 06:04] LABS: ALBUMIN 2.6 g/dL (3.5-5.0); CREATININE 1.2 mg/dL (0.5-1.5); MAGNESIUM 2.2 mg/dL (1.80-2.40); POTASSIUM 4.9 mmol/L (3.5-5.1); TOTAL PROTEIN, SERUM 7.4 g/dL (6.0-8.3)
[2023-04-16 08:02] VITALS: BP 135/75
[2023-04-16] MEDS: Vitamin B Complex/Vit C/Folic Acid PO SCH (08:30)
[2023-04-16] MEDS: POLYETHYLENE GLYCOL 3350 17 GM POWD.PACK PO SCH (08:30)
[2023-04-16] MEDS: SODIUM BICARBONATE 650 MG TAB PO SCH ×2 (08:31→20:07)
[2023-04-16] MEDS: MIDODRINE HCL 5 MG TABLET PO SCH ×3 (08:31→20:07)
[2023-04-16] MEDS: FAMOTIDINE 20MG TAB PO SCH (08:31)
[2023-04-16 11:22] VITALS: BP 124/61
[2023-04-16 16:22] VITALS: BP 106/67
[2023-04-16 20:00] VITALS: BP 121/64
[2023-04-16 23:27] VITALS: BP 124/61
[2023-04-17] MEDS: MEROPENEM 1 GM VIAL IVPB SCH ×2 (02:55→09:26)
[2023-04-17 03:51] VITALS: BP 119/57
[2023-04-17 06:16] LABS: BASOPHILS % (AUTO) 0.2 % (0.0-5.0); EOSINOPHILS % (AUTO) 3.5 % (0.0-8.0); HEMATOCRIT 33.6 % (36-48); LYMPHOCYTES % (AUTO) 26.6 % (21.0-51.0); MEAN CORPUSCULAR HEMOGLOBIN 31.6 pg (27.0-33.0); MEAN CORPUSCULAR HGB CONC 32.4 g/dL (32.0-36.0); MEAN CORPUSCULAR VOLUME 97.4 fL (79-99); MONOCYTES % (AUTO) 13.5 % (3.0-13.0); NEUTROPHILS % (AUTO) 55.7 % (40.0-77.0); PLATELET COUNT (AUTO) 269 K/uL (130-400); RED BLOOD CELL COUNT(AUTO) 3.45 MIL/uL (4.00-5.50); RED CELL DISTRIBUTION WIDTH 12.1 % (11.0-15.5); WHITE BLOOD COUNT (AUTO) 6.1 K/uL (4.8-10.8)
[2023-04-17 06:34] LABS: ALBUMIN 2.8 g/dL (3.5-5.0); CREATININE 1.2 mg/dL (0.5-1.5); MAGNESIUM 2.4 mg/dL (1.80-2.40); POTASSIUM 5.2 mmol/L (3.5-5.1); TOTAL PROTEIN, SERUM 7.8 g/dL (6.0-8.3)
[2023-04-17 07:49] VITALS: BP 123/66
[2023-04-17] MEDS: FAMOTIDINE 20MG TAB PO SCH (09:19)
[2023-04-17] MEDS: MIDODRINE HCL 5 MG TABLET PO SCH (09:19)
[2023-04-17] MEDS: 0.9%NACL 1000ML 1,000 ML IV SCH (09:19)
[2023-04-17] MEDS: SODIUM BICARBONATE 650 MG TAB PO SCH (09:19)
[2023-04-17] MEDS: Vitamin B Complex/Vit C/Folic Acid PO SCH (09:19)
[2023-04-17] MEDS: POLYETHYLENE GLYCOL 3350 17 GM POWD.PACK PO SCH (09:19)
[2023-04-17 11:59] VITALS: BP 119/60
== END 2023-04-17 16:30 | disposition home or self-care (01) | DRG 698 ==
LOC: EDH 20:20 → EDHIP 20:21 → UNDOADMIN 04-05 01:42 → EDHIP 04-05 05:22 → 2DH 04-05 05:22 → 2BH 04-06 → 4CH 04-06 23:36
PROVIDERS: ADMIT Internal Medicine; ATTEND Internal Medicine
PROC: 0T25X0Z Change Drainage Device in Kidney, External Approach (ICD-10-PCS; principal; 2023-04-05)
DX: T83.518A Infection and inflammatory reaction due to other urinary catheter, initial encounter (principal); A41.50 Gram-negative sepsis, unspecified; R65.21 Severe sepsis with septic shock; N17.0 Acute kidney failure with tubular necrosis; E43 Unspecified severe protein-calorie malnutrition; N13.6 Pyonephrosis; C19 Malignant neoplasm of rectosigmoid junction; Z16.12 Extended spectrum beta lactamase (ESBL) resistance; D69.6 Thrombocytopenia, unspecified; Y84.6 Urinary catheterization as the cause of abnormal reaction of the patient, or of later complication, without mention of misadventure at the time of the procedure; N18.30 Chronic kidney disease, stage 3 unspecified; I12.9 Hypertensive chronic kidney disease with stage 1 through stage 4 chronic kidney disease, or unspecified chronic kidney disease; K57.30 Diverticulosis of large intestine without perforation or abscess without bleeding; N30.20 Other chronic cystitis without hematuria; K80.20 Calculus of gallbladder without cholecystitis without obstruction; Z93.3 Colostomy status; Z93.6 Other artificial openings of urinary tract status; B96.20 Unspecified Escherichia coli [E. coli] as the cause of diseases classified elsewhere; Z79.899 Other long term (current) drug therapy; Z85.048 Personal history of other malignant neoplasm of rectum, rectosigmoid junction, and anus; Z87.440 Personal history of urinary (tract) infections; Z90.49 Acquired absence of other specified parts of digestive tract; Z92.3 Personal history of irradiation; Z68.21 Body mass index [BMI] 21.0-21.9, adult
CPT/HCPCS: 36415; 50435; 71045; 74176; 80048; 80053; 81001; 82150; 82948; 83605; 83735; 84100; 84145; 84484; 84550; 85025; 85027; 85610; 85651; 85730; 86140; 87040; 87077; 87088; 87186; 93005; 97039; C1729; C1769; G0378; J1170; J1644; J1720; J2185; J2405; J3475; J3490; J7030; Q9967

== ENCOUNTER 2023-06-05 05:49 | Day surgery (SDC) | payer OTHER ==
[2023-06-01 15:19] LABS: INR 0.94 (0.85-1.15); PROTHROMBIN TIME 10.9 SEC (9.6-11.6)
[2023-06-01 15:20] LABS: PARTIAL THROMBOPLASTIN TIME 29.3 SEC (26.3-35.5)
[2023-06-01 15:23] VITALS: BP 135/58; PULSE 73; RESP 16
[2023-06-01 15:25] LABS: CREATININE 1.5 mg/dL (0.5-1.5); POTASSIUM 4.6 mmol/L (3.5-5.1)
[~2023-06-05] VITALS: Ht 152.4 cm; Wt 53.3 kg
[~2023-06-05 05:49] MED LIST changes: -DOXY-252 PO; +DULO30CA52 PO; +FOLI0.8T2 PO; +OMEP40CA21 PO
[2023-06-05 06:00] VITALS: BP 140/73; PULSE 88; RESP 16
[2023-06-05] MEDS ORDERED: 0.9%NACL 1000ML 1,000 ML IV ONE (06:24)
[2023-06-05] MEDS ORDERED: MIDAZOLAM HCL 1 MG/ML 2ML VIAL ONE (13:48)
[2023-06-05] MEDS ORDERED: IOHEXOL-350 50ML VIAL IV ONE (13:48)
[2023-06-05] MEDS ORDERED: LIDOCAINE HCL 400MG/20ML VIAL ONE (13:48)
[2023-06-05] MEDS ORDERED: FENTANYL CITRATE PF 50 MCG/1 ML 2ML VIAL ONE (13:48)
[2023-06-05 15:00] VITALS: BP 114/64; PULSE 79; RESP 16
== END 2023-06-05 15:15 | disposition home or self-care (01) ==
LOC: DAH 05:49
PROVIDERS: ATTEND Urology
DX: N13.39 Other hydronephrosis (principal); Z20.822 Contact with and (suspected) exposure to COVID-19; N18.32 Chronic kidney disease, stage 3b; Z79.01 Long term (current) use of anticoagulants; Z79.899 Other long term (current) drug therapy
CPT/HCPCS: 80048; 85610; 85730; 36415; 50435 ×2; C1769; C1729 ×2; J3490; J7030; J1644; Q9967; A4215; A4222; A4663; A4216; A4606; A4223 ×3; J2250; J3010

== ENCOUNTER 2023-08-10 05:35 | Day surgery (SDC) | payer OTHER ==
[2023-08-03 15:31] LABS: BASOPHILS # (AUTO) 0.02 K/uL (0.00-0.20); BASOPHILS % (AUTO) 0.3 % (0.0-5.0); EOSINOPHILS # (AUTO) 0.19 K/uL (0.00-0.70); EOSINOPHILS % (AUTO) 2.8 % (0.0-8.0); HEMATOCRIT 33.5 % (36-48); IMMATURE GRANULOCYTE ABSOLUTE 0.03 K/uL (0-1); LYMPHOCYTES # (AUTO) 2.2 K/uL (1.0-4.8); LYMPHOCYTES % (AUTO) 31.6 % (21.0-51.0); MEAN CORPUSCULAR HEMOGLOBIN 31.9 pg (27.0-33.0); MEAN CORPUSCULAR HGB CONC 33.4 g/dL (32.0-36.0); MEAN CORPUSCULAR VOLUME 95.4 fL (79-99); MONOCYTES # (AUTO) 0.8 K/uL (0.1-1.0); MONOCYTES % (AUTO) 11.1 % (3.0-13.0); NEUTROPHILS # (AUTO) 3.7 K/uL (1.8-7.7); NEUTROPHILS % (AUTO) 53.8 % (40.0-77.0); PLATELET COUNT (AUTO) 201 K/uL (130-400); RED BLOOD CELL COUNT(AUTO) 3.51 MIL/uL (4.00-5.50); RED CELL DISTRIBUTION WIDTH 12.7 % (11.0-15.5); WHITE BLOOD COUNT (AUTO) 6.9 K/uL (4.8-10.8)
[2023-08-03 15:41] LABS: INR 0.95 (0.85-1.15); PROTHROMBIN TIME 11.1 SEC (9.6-11.6)
[2023-08-03 15:42] LABS: CREATININE 1.8 mg/dL (0.5-1.5); POTASSIUM 4.1 mmol/L (3.5-5.1)
[2023-08-03 15:43] LABS: PARTIAL THROMBOPLASTIN TIME 29.7 SEC (26.3-35.5)
[2023-08-04 13:14] VITALS: BP 134/69; PULSE 69; RESP 18
[~2023-08-10 05:35] MED LIST changes: -FERR325T29 PO; +SODI650T PO
[2023-08-10 07:00] VITALS: BP 157/59; PULSE 74; RESP 15
[2023-08-10] MEDS ORDERED: LIDOCAINE HCL 1% MDV 50ML VIAL ONE (08:18)
[2023-08-10] MEDS ORDERED: IODIXANOL 320 MG/ML 100 ML VIAL ONE (08:18)
[2023-08-10] MEDS ORDERED: FENTANYL CITRATE PF 50 MCG/1 ML 2ML VIAL ONE (08:37)
[2023-08-10] MEDS ORDERED: MIDAZOLAM HCL 1 MG/ML 2ML VIAL ONE (08:38)
[2023-08-10 09:30] VITALS: BP 143/68; PULSE 70; RESP 12
[2023-08-10 09:45] VITALS: BP 128/62; PULSE 73; RESP 15
[2023-08-10 10:00] VITALS: BP 146/71; PULSE 78; RESP 14
== END 2023-08-10 10:10 | disposition home or self-care (01) ==
LOC: DAH 05:35
PROVIDERS: ATTEND Urology
DX: N13.39 Other hydronephrosis (principal); Z80.3 Family history of malignant neoplasm of breast; Z88.8 Allergy status to other drugs, medicaments and biological substances; Z82.49 Family history of ischemic heart disease and other diseases of the circulatory system; Z98.890 Other specified postprocedural states
CPT/HCPCS: 80048; 85025; 85610; 85730; 36415; 50435 ×2; C1769; C1729 ×2; J1644; J3490; Q9967; A4215; A4222; A4221; A4663; A4216; A4606; A4223 ×3; J2250; J3010

== ENCOUNTER 2023-10-18 09:55 | Day surgery (SDC) | payer OTHER ==
[2023-10-17 16:10] LABS: BASOPHILS # (AUTO) 0.02 K/uL (0.00-0.20); BASOPHILS % (AUTO) 0.3 % (0.0-5.0); EOSINOPHILS # (AUTO) 0.14 K/uL (0.00-0.70); EOSINOPHILS % (AUTO) 2.2 % (0.0-8.0); HEMATOCRIT 36.5 % (36-48); IMMATURE GRANULOCYTE ABSOLUTE 0.05 K/uL (0-1); LYMPHOCYTES # (AUTO) 2.1 K/uL (1.0-4.8); LYMPHOCYTES % (AUTO) 31.6 % (21.0-51.0); MEAN CORPUSCULAR HEMOGLOBIN 32.1 pg (27.0-33.0); MEAN CORPUSCULAR HGB CONC 33.2 g/dL (32.0-36.0); MEAN CORPUSCULAR VOLUME 96.8 fL (79-99); MONOCYTES # (AUTO) 0.6 K/uL (0.1-1.0); MONOCYTES % (AUTO) 8.5 % (3.0-13.0); NEUTROPHILS # (AUTO) 3.7 K/uL (1.8-7.7); NEUTROPHILS % (AUTO) 56.6 % (40.0-77.0); PLATELET COUNT (AUTO) 188 K/uL (130-400); RED BLOOD CELL COUNT(AUTO) 3.77 MIL/uL (4.00-5.50); RED CELL DISTRIBUTION WIDTH 12.3 % (11.0-15.5); WHITE BLOOD COUNT (AUTO) 6.5 K/uL (4.8-10.8)
[2023-10-17 16:12] VITALS: BP 159/62; PULSE 74; RESP 19
[2023-10-17 16:21] LABS: INR 0.94 (0.85-1.15)
[2023-10-17 16:22] LABS: CREATININE 1.6 mg/dL (0.5-1.5); PARTIAL THROMBOPLASTIN TIME 30.4 SEC (26.3-35.5); POTASSIUM 4.7 mmol/L (3.5-5.1)
[2023-10-17 16:44] LABS: BAND NEUTROPHILS % (MANUAL) 8 % (0-2); LYMPHOCYTES % (MANUAL) 16 % (22-44); MONOCYTES % (MANUAL) 4 % (2-9); REACTIVE LYMPHOCYTES 12 % (0-0); SEGMENTED NEUTROPHILS % 60 % (40-70); TOTAL CELLS COUNTED 100
[2023-10-17 16:45] LABS: MAN.DIFF COMMENT-IMPRESSION MANUAL DIFFERENTIAL; PLATELET MORPHOLOGY COMMENT ADEQUATE; WBC MORPHOLOGY REACTIVE LYMPHS 1+
[~2023-10-18] VITALS: Ht 152.4 cm; Wt 57.2 kg
[~2023-10-18 09:55] MED LIST changes: +CRAN500T PO; +FAMO40TA7 PO; +FERR325T29 PO; -OMEP40CA21 PO
[2023-10-18 10:00] VITALS: BP 140/69; PULSE 85; RESP 18
[2023-10-18] MEDS ORDERED: IODIXANOL 320 MG/ML 100 ML VIAL ONE (11:22)
[2023-10-18] MEDS ORDERED: LIDOCAINE HCL 1% MDV 50ML VIAL ONE (11:22)
[2023-10-18 12:26] VITALS: BP 151/69; PULSE 69; RESP 18
== END 2023-10-18 12:25 | disposition home or self-care (01) ==
LOC: DAH 09:55
PROVIDERS: ATTEND Urology
DX: N13.39 Other hydronephrosis (principal); N18.32 Chronic kidney disease, stage 3b; Z79.01 Long term (current) use of anticoagulants; Z93.3 Colostomy status; Z92.3 Personal history of irradiation; Z98.890 Other specified postprocedural states; Z80.0 Family history of malignant neoplasm of digestive organs
CPT/HCPCS: 80048; 85025; 85610; 85730; 36415; 50435 ×2; C1769; C1729 ×2; J1644; J3490; Q9967; A4215; A4222; A4221; A4663; A4216; A4606; A4223 ×3

== ENCOUNTER → 2023-12-11 | Outpatient (CLI) | payer OTHER ==
[~2023-12-11] VITALS: Ht 152.4 cm; Wt 58.9 kg
[2023-12-11 14:03] LABS: BASOPHILS # (AUTO) 0.03 K/uL (0.00-0.20); BASOPHILS % (AUTO) 0.4 % (0.0-5.0); EOSINOPHILS # (AUTO) 0.17 K/uL (0.00-0.70); EOSINOPHILS % (AUTO) 2.1 % (0.0-8.0); HEMATOCRIT 36.1 % (36-48); IMMATURE GRANULOCYTE ABSOLUTE 0.05 K/uL (0-1); LYMPHOCYTES # (AUTO) 1.8 K/uL (1.0-4.8); LYMPHOCYTES % (AUTO) 21.7 % (21.0-51.0); MEAN CORPUSCULAR HEMOGLOBIN 31.6 pg (27.0-33.0); MEAN CORPUSCULAR HGB CONC 32.7 g/dL (32.0-36.0); MEAN CORPUSCULAR VOLUME 96.8 fL (79-99); MONOCYTES # (AUTO) 0.8 K/uL (0.1-1.0); MONOCYTES % (AUTO) 9.4 % (3.0-13.0); NEUTROPHILS # (AUTO) 5.4 K/uL (1.8-7.7); NEUTROPHILS % (AUTO) 65.8 % (40.0-77.0); PLATELET COUNT (AUTO) 218 K/uL (130-400); RED BLOOD CELL COUNT(AUTO) 3.73 MIL/uL (4.00-5.50); RED CELL DISTRIBUTION WIDTH 12.3 % (11.0-15.5); WHITE BLOOD COUNT (AUTO) 8.3 K/uL (4.8-10.8)
[2023-12-11 14:16] LABS: INR 0.94 (0.85-1.15); PROTHROMBIN TIME 10.9 SEC (9.6-11.6)
[2023-12-11 14:17] LABS: PARTIAL THROMBOPLASTIN TIME 30.1 SEC (26.3-35.5)
[2023-12-11 16:07] VITALS: BP 142/61; PULSE 83; RESP 18
== END | disposition home or self-care (01) ==
LOC: DAH 10:00 → EDSTATUS 16:00
PROVIDERS: ATTEND Urology
DX: N13.39 Other hydronephrosis (principal)
CPT/HCPCS: 36415; 85025; 85610; 85730

== ENCOUNTER 2024-01-08 12:15 | Emergency (ER) | payer OTHER ==
[~2024-01-08] VITALS: Ht 152.4 cm; Wt 59.0 kg
[2024-01-08 13:42] LABS: BASOPHILS # (AUTO) 0.02 K/uL (0.00-0.20); BASOPHILS % (AUTO) 0.3 % (0.0-5.0); EOSINOPHILS # (AUTO) 0.15 K/uL (0.00-0.70); EOSINOPHILS % (AUTO) 2.2 % (0.0-8.0); HEMATOCRIT 36.7 % (36-48); IMMATURE GRANULOCYTE ABSOLUTE 0.02 K/uL (0-1); LYMPHOCYTES # (AUTO) 1.6 K/uL (1.0-4.8); LYMPHOCYTES % (AUTO) 23.6 % (21.0-51.0); MEAN CORPUSCULAR HGB CONC 33.8 g/dL (32.0-36.0); MEAN CORPUSCULAR VOLUME 94.8 fL (79-99); MONOCYTES # (AUTO) 0.7 K/uL (0.1-1.0); MONOCYTES % (AUTO) 10.7 % (3.0-13.0); NEUTROPHILS # (AUTO) 4.3 K/uL (1.8-7.7); NEUTROPHILS % (AUTO) 62.9 % (40.0-77.0); PLATELET COUNT (AUTO) 218 K/uL (130-400); RED BLOOD CELL COUNT(AUTO) 3.87 MIL/uL (4.00-5.50); RED CELL DISTRIBUTION WIDTH 12.3 % (11.0-15.5); WHITE BLOOD COUNT (AUTO) 6.9 K/uL (4.8-10.8)
[2024-01-08 13:52] LABS: CREATININE 1.5 mg/dL (0.5-1.0); POTASSIUM 4.8 mmol/L (3.5-5.1)
[2024-01-08 13:57] LABS: ALBUMIN 3.4 g/dL (3.5-5.0); BILIRUBIN,TOTAL 0.4 mg/dL (0.2-1.0); TOTAL PROTEIN, SERUM 8.7 g/dL (6.0-8.3)
[2024-01-08 17:08] LABS: APPEARANCE,URINE CLEAR (CLEAR); APPEARANCE,URINE CLOUDY (CLEAR); BILIRUBIN,URINE NEGATIVE (NEGATIVE); COLOR,URINE COLORLESS (YELLOW); COLOR,URINE LIGHT-YELLOW (YELLOW); GLUCOSE, URINE (UA) NEGATIVE (NEGATIVE); KETONES,URINE NEGATIVE (NEGATIVE); LEUKOCYTE ESTERASE ,URINE 500 Leu/uL (NEGATIVE); NITRATE,URINE NEGATIVE (NEGATIVE); OCCULT BLOOD,URINE LARGE (NEGATIVE); PROTEIN,URINE 20 mg/dL (NEGATIVE); UROBILINOGEN,URINE 0.2 mg/dL (0.2-1.0)
[2024-01-08] MEDS ORDERED: SULF1TAB42 PO (17:13)
[2024-01-08 17:15] LABS: ADD UA MICROSCOPIC YES
[2024-01-08 17:16] LABS: ADD UA MICROSCOPIC YES
[2024-01-08 17:19] LABS: BACTERIA,URINE RARE /HPF (None Seen); WBC,URINE 51-100 /HPF (0-1)
[2024-01-08 17:20] LABS: BACTERIA,URINE RARE /HPF (None Seen); OTHER CASTS, URINE 4 /LPF (None Seen); SQUAMOUS EPITHELIAL CELL,UR RARE /HPF (0-2); WBC CLUMP MOD /HPF (0-1); WBC,URINE TNTC /HPF (0-1); YEAST,URINE BUDDING RARE /HPF (None Seen)
[2024-01-08 17:35] VITALS: BP 142/69; PULSE 70; RESP 16; O2SAT 100
== END 2024-01-08 17:39 | disposition home or self-care (01) ==
LOC: EDH 12:15
DX: N39.0 Urinary tract infection, site not specified (principal); Z93.6 Other artificial openings of urinary tract status; Z79.899 Other long term (current) drug therapy; Z90.49 Acquired absence of other specified parts of digestive tract; Z98.890 Other specified postprocedural states; Z88.8 Allergy status to other drugs, medicaments and biological substances
CPT/HCPCS: 36415; 74018; 80053; 81001; 83690; 85025; 87071; 87077; 87186; 87205

== ENCOUNTER 2024-01-16 05:53 | Day surgery (SDC) | payer OTHER ==
[2024-01-15 10:58] LABS: BASOPHILS # (AUTO) 0.02 K/uL (0.00-0.20); BASOPHILS % (AUTO) 0.3 % (0.0-5.0); EOSINOPHILS # (AUTO) 0.11 K/uL (0.00-0.70); EOSINOPHILS % (AUTO) 1.6 % (0.0-8.0); HEMATOCRIT 40.7 % (36-48); IMMATURE GRANULOCYTE ABSOLUTE 0.04 K/uL (0-1); LYMPHOCYTES # (AUTO) 1.6 K/uL (1.0-4.8); LYMPHOCYTES % (AUTO) 24.2 % (21.0-51.0); MEAN CORPUSCULAR HEMOGLOBIN 32.2 pg (27.0-33.0); MEAN CORPUSCULAR HGB CONC 32.9 g/dL (32.0-36.0); MEAN CORPUSCULAR VOLUME 97.8 fL (79-99); MONOCYTES # (AUTO) 0.8 K/uL (0.1-1.0); MONOCYTES % (AUTO) 11.8 % (3.0-13.0); NEUTROPHILS # (AUTO) 4.2 K/uL (1.8-7.7); NEUTROPHILS % (AUTO) 61.5 % (40.0-77.0); PLATELET COUNT (AUTO) 235 K/uL (130-400); RED BLOOD CELL COUNT(AUTO) 4.16 MIL/uL (4.00-5.50); RED CELL DISTRIBUTION WIDTH 12.2 % (11.0-15.5); WHITE BLOOD COUNT (AUTO) 6.8 K/uL (4.8-10.8)
[2024-01-15 11:08] LABS: POTASSIUM 5.3 mmol/L (3.5-5.1)
[2024-01-15 11:10] LABS: INR 0.94 (0.85-1.15); PROTHROMBIN TIME 11.1 SEC (9.6-11.6)
[2024-01-15 11:11] LABS: PARTIAL THROMBOPLASTIN TIME 31.1 SEC (26.3-35.5)
[2024-01-15 11:17] VITALS: BP 132/65; PULSE 79; RESP 16
[~2024-01-16] VITALS: Ht 152.4 cm; Wt 59.1 kg
[~2024-01-16 05:53] MED LIST changes: -CRAN500T PO
[2024-01-16 06:04] VITALS: BP 123/66; PULSE 98; RESP 18
[2024-01-16] MEDS: 0.9%NACL 1000ML 1,000 ML IV ONE (06:28)
[2024-01-16] MEDS ORDERED: MIDAZOLAM HCL 1 MG/ML 2ML VIAL ONE ×3 (07:26→11:53)
[2024-01-16] MEDS ORDERED: LIDOCAINE HCL 1% MDV 50ML VIAL ONE (07:26)
[2024-01-16] MEDS ORDERED: FENTANYL CITRATE PF 50 MCG/1 ML 2ML VIAL ONE (07:26)
[2024-01-16] MEDS ORDERED: IOHEXOL-350 50ML VIAL IV ONE ×2 (07:26→07:58)
[2024-01-16 08:33] VITALS: BP 154/84; PULSE 98; RESP 16
[2024-01-16 08:48] VITALS: BP 160/88; PULSE 110; RESP 16
[2024-01-16 09:03] VITALS: BP 155/76; PULSE 114; RESP 16
[2024-01-16 09:23] VITALS: BP 157/80; PULSE 94; RESP 16
[2024-01-16] MEDS: ONDANSETRON 4MG TABLET PO ONE (09:30)
[2024-01-16] MEDS ORDERED: MEPERIDINE-PF 25 MG/ML SYG ONE ×2 (10:43→11:53)
== END 2024-01-16 09:35 | disposition home or self-care (01) ==
LOC: DAH 05:53
PROVIDERS: ATTEND Urology
DX: N13.39 Other hydronephrosis (principal); Z79.01 Long term (current) use of anticoagulants; Z88.8 Allergy status to other drugs, medicaments and biological substances; Z79.899 Other long term (current) drug therapy; Z98.890 Other specified postprocedural states
CPT/HCPCS: 80048; 85025; 85610; 85730; 36415; 50432; 50435; Q0162; C1729 ×2; C1769 ×2; C1894 ×2; J3010; J7030; J2250 ×3; J2175 ×2; J1644; J3490; Q9967 ×2; A4215; A4222; A4221; A4663; A4216; A4606; A4223 ×3; 10030; 99156; 99157

== ENCOUNTER 2024-03-04 11:38 | Emergency (ER) | payer OTHER ==
[~2024-03-04] VITALS: Ht 149.9 cm; Wt 58.1 kg
[2024-03-04] MEDS: 0.9%NACL 1000ML 1,000 ML IV ONE ×2 (12:28→16:15)
[2024-03-04] MEDS: PANTOPRAZOLE 40 MG/VIAL IVP ONE (12:28)
[2024-03-04 12:40] LABS: BASOPHILS # (AUTO) 0.01 K/uL (0.00-0.20); BASOPHILS % (AUTO) 0.1 % (0.0-5.0); EOSINOPHILS # (AUTO) 0.03 K/uL (0.00-0.70); EOSINOPHILS % (AUTO) 0.3 % (0.0-8.0); IMMATURE GRANULOCYTE ABSOLUTE 0.04 K/uL (0-1); LYMPHOCYTES # (AUTO) 1.1 K/uL (1.0-4.8); LYMPHOCYTES % (AUTO) 10.4 % (21.0-51.0); MEAN CORPUSCULAR HEMOGLOBIN 30.3 pg (27.0-33.0); MEAN CORPUSCULAR VOLUME 91.7 fL (79-99); MONOCYTES # (AUTO) 0.7 K/uL (0.1-1.0); MONOCYTES % (AUTO) 6.5 % (3.0-13.0); NEUTROPHILS # (AUTO) 8.3 K/uL (1.8-7.7); NEUTROPHILS % (AUTO) 82.3 % (40.0-77.0); PLATELET COUNT (AUTO) 289 K/uL (130-400); RED CELL DISTRIBUTION WIDTH 12.4 % (11.0-15.5); WHITE BLOOD COUNT (AUTO) 10.1 K/uL (4.8-10.8)
[2024-03-04 12:53] LABS: CREATININE 2.1 mg/dL (0.5-1.0); POTASSIUM 4.9 mmol/L (3.5-5.1)
[2024-03-04 13:39] LABS: B-TYPE NATRIURETIC PEPTIDE 24 pg/mL (0-100)
[2024-03-04 17:41] LABS: APPEARANCE,URINE TURBID (CLEAR); BILIRUBIN,URINE NEGATIVE (NEGATIVE); COLOR,URINE LIGHT-ORANGE (YELLOW); GLUCOSE, URINE (UA) NEGATIVE (NEGATIVE); KETONES,URINE NEGATIVE (NEGATIVE); LEUKOCYTE ESTERASE ,URINE 500 Leu/uL (NEGATIVE); NITRATE,URINE 1+ (NEGATIVE); OCCULT BLOOD,URINE SMALL (NEGATIVE); PROTEIN,URINE 30 mg/dL (NEGATIVE); UROBILINOGEN,URINE 0.2 mg/dL (0.2-1.0)
[2024-03-04 17:44] LABS: BACTERIA,URINE MOD /HPF (None Seen); SQUAMOUS EPITHELIAL CELL,UR RARE /HPF (0-2); UNCLASSIFIED CRYSTAL 4 /HPF (None Seen); WBC CLUMP RARE /HPF (0-1); WBC,URINE 51-100 /HPF (0-1); YEAST,URINE BUDDING FEW /HPF (None Seen)
[2024-03-04] MEDS ORDERED: PANT40TA55 PO (17:50)
[2024-03-04] MEDS ORDERED: SULF1TAB42 PO (17:52)
[2024-03-04 17:57] VITALS: BP 125/67; PULSE 70; RESP 20; O2SAT 99
[2024-03-11] MEDS ORDERED: SULF1TAB42 PO (09:14)
[2024-03-11] MEDS ORDERED: SODI650T PO (09:14)
[2024-03-11] MEDS ORDERED: PANT40GR PO (09:14)
[2024-03-11] MEDS ORDERED: FOLI1TAB85 PO (09:14)
== END 2024-03-04 18:52 | disposition home or self-care (01) ==
LOC: EDH 11:38
DX: N39.0 Urinary tract infection, site not specified (principal); K52.9 Noninfective gastroenteritis and colitis, unspecified; K21.9 Gastro-esophageal reflux disease without esophagitis; Z88.1 Allergy status to other antibiotic agents; Z79.899 Other long term (current) drug therapy
CPT/HCPCS: 99285; 74176; 96374; 96361; 80048; 83880; 83690; 85025; 87077; 87088; 87186; 81001 ×2; 36415; J7030 ×2; C9113

== ENCOUNTER 2024-03-18 11:42 | Emergency (ER) | payer OTHER ==
[~2024-03-18] VITALS: Ht 162.6 cm; Wt 59.0 kg
[~2024-03-18 11:42] MED LIST changes: -FAMO40TA7 PO; -FOLI0.8T2 PO; +FOLI1TAB85 PO; +PANT40GR PO
[2024-03-18 11:47] VITALS: BP 119/67; PULSE 88; RESP 16
== END 2024-03-18 13:19 | disposition home or self-care (01) ==
LOC: EDH 11:44
DX: Z45.2 Encounter for adjustment and management of vascular access device (principal); K21.9 Gastro-esophageal reflux disease without esophagitis; Z79.899 Other long term (current) drug therapy; Z88.1 Allergy status to other antibiotic agents; Z85.048 Personal history of other malignant neoplasm of rectum, rectosigmoid junction, and anus
CPT/HCPCS: 99281

== ENCOUNTER 2024-04-19 02:17 | Inpatient (IN) | payer OTHER ==
[~2024-04-19] VITALS: Ht 152.4 cm; Wt 68.7 kg
[2024-04-19 04:24] LABS: BASOPHILS # (AUTO) 0.02 K/uL (0.00-0.20); BASOPHILS % (AUTO) 0.1 % (0.0-5.0); EOSINOPHILS # (AUTO) 0.04 K/uL (0.00-0.70); EOSINOPHILS % (AUTO) 0.3 % (0.0-8.0); HEMATOCRIT 36.6 % (36-48); IMMATURE GRANULOCYTE ABSOLUTE 0.07 K/uL (0-1); LYMPHOCYTES % (AUTO) 6.7 % (21.0-51.0); MEAN CORPUSCULAR HEMOGLOBIN 30.4 pg (27.0-33.0); MEAN CORPUSCULAR HGB CONC 33.9 g/dL (32.0-36.0); MEAN CORPUSCULAR VOLUME 89.7 fL (79-99); MONOCYTES # (AUTO) 0.7 K/uL (0.1-1.0); MONOCYTES % (AUTO) 4.6 % (3.0-13.0); NEUTROPHILS # (AUTO) 12.5 K/uL (1.8-7.7); NEUTROPHILS % (AUTO) 87.8 % (40.0-77.0); PLATELET COUNT (AUTO) 205 K/uL (130-400); RED BLOOD CELL COUNT(AUTO) 4.08 MIL/uL (4.00-5.50); RED CELL DISTRIBUTION WIDTH 13.4 % (11.0-15.5); WHITE BLOOD COUNT (AUTO) 14.3 K/uL (4.8-10.8)
[2024-04-19 04:36] LABS: CREATININE 1.7 mg/dL (0.5-1.0); POTASSIUM 5.8 mmol/L (3.5-5.1)
[2024-04-19 04:40] LABS: ALBUMIN 3.7 g/dL (3.5-5.0); BILIRUBIN,TOTAL 0.6 mg/dL (0.2-1.0); MAGNESIUM 2.3 mg/dL (1.80-2.40); TOTAL PROTEIN, SERUM 9.3 g/dL (6.0-8.3)
[2024-04-19] MEDS: ONDANSETRON 4MG INJ IVP ONE (05:04)
[2024-04-19 05:27] LABS: APPEARANCE,URINE CLOUDY (CLEAR); BILIRUBIN,URINE NEGATIVE (NEGATIVE); COLOR,URINE LIGHT-YELLOW (YELLOW); GLUCOSE, URINE (UA) NEGATIVE (NEGATIVE); KETONES,URINE NEGATIVE (NEGATIVE); LEUKOCYTE ESTERASE ,URINE 500 Leu/uL (NEGATIVE); NITRATE,URINE 1+ (NEGATIVE); OCCULT BLOOD,URINE LARGE (NEGATIVE); PROTEIN,URINE 10 mg/dL (NEGATIVE); UROBILINOGEN,URINE 0.2 mg/dL (0.2-1.0)
[2024-04-19 05:29] LABS: ADD UA MICROSCOPIC YES
[2024-04-19 05:30] LABS: BACTERIA,URINE MANY /HPF (None Seen); SQUAMOUS EPITHELIAL CELL,UR RARE /HPF (0-2)
[2024-04-19 05:44] LABS: WBC MORPHOLOGY CONSISTENT W/DIFF
[2024-04-19] MEDS: MORPHINE 2 MG SYG IVP ONE (09:47)
[2024-04-19] MEDS: MEROPENEM 1 GM in 0.9%NACL 100ML 100 ML IV ONE (09:47)
[2024-04-19] MEDS: 0.9% NACL 500ML IV.SOLN 500 ML IV ONE (09:48)
[2024-04-19] MEDS: 0.9%NACL 1000ML 1,000 ML IV SCH (09:50)
[2024-04-19 09:59] LABS: CREATININE 1.6 mg/dL (0.5-1.0)
[2024-04-19 10:00] LABS: INR 1.01 (0.85-1.15); PROTHROMBIN TIME 10.9 SEC (9.6-11.6)
[2024-04-19 10:01] LABS: HEMOGLOBIN A1C 5.2 % (4.0-6.0); PARTIAL THROMBOPLASTIN TIME 28.3 SEC (26.3-35.5)
[2024-04-19 10:12] LABS: THYROID STIMULATING HORMONE 4.03 uIU/mL (0.36-3.74)
[2024-04-19 10:39] LABS: CREATININE,URINE RANDOM 47.07 mg/dL (30-135)
[2024-04-19] MEDS ORDERED: MORPHINE 2 MG SYG IVP PRN (13:00)
[2024-04-19 19:35] VITALS: BP 123/74; PULSE 79; RESP 19
[2024-04-19] MEDS: MEROPENEM 1 GM in 0.9%NACL 100ML 100 ML IV SCH (20:06)
[2024-04-19 22:25] VITALS: BP 140/74; PULSE 74; RESP 17
[2024-04-20] VITALS (8 sets, daily range): BP systolic 110–138; BP diastolic 63–80; PULSE 76–97; RESP 14–18; O2SAT 98–100
[2024-04-20 01:18] LABS: CHLORIDE,URINE RANDOM 115 mmol/L (110-250); POTASSIUM,URINE RANDOM 58 mmol/L (25-125); SODIUM,URINE RANDOM 77 mmol/l (40-220)
[2024-04-20 04:00] LABS: HEMATOCRIT 34.8 % (36-48); MEAN CORPUSCULAR HEMOGLOBIN 30.5 pg (27.0-33.0); MEAN CORPUSCULAR HGB CONC 32.2 g/dL (32.0-36.0); MEAN CORPUSCULAR VOLUME 94.8 fL (79-99); RED BLOOD CELL COUNT(AUTO) 3.67 MIL/uL (4.00-5.50); RED CELL DISTRIBUTION WIDTH 13.7 % (11.0-15.5); WHITE BLOOD COUNT (AUTO) 5.3 K/uL (4.8-10.8)
[2024-04-20 04:30] LABS: ALBUMIN 2.9 g/dL (3.5-5.0); BILIRUBIN,TOTAL 0.5 mg/dL (0.2-1.0); CREATININE 1.6 mg/dL (0.5-1.0); MAGNESIUM 2.2 mg/dL (1.80-2.40); PHOSPHORUS 4.1 mg/dL (2.5-4.9); POTASSIUM 4.5 mmol/L (3.5-5.1); THYROID STIMULATING HORMONE 2.65 uIU/mL (0.36-3.74); TOTAL PROTEIN, SERUM 7.4 g/dL (6.0-8.3); URIC ACID 6.1 mg/dL (2.6-7.2)
[2024-04-20] MEDS ORDERED: COMPOUND IV MISC 1 EACH IVSOLN MISC PRN (12:00)
[2024-04-20] MEDS: ACETAMINOPHEN 500 MG TABLET PO PRN (13:59)
[2024-04-20] MEDS: SODIUM BICARBONATE 650 MG TAB PO SCH (15:05)
[2024-04-21 03:00] VITALS: BP 142/76; PULSE 74; RESP 14
[2024-04-21 06:08] LABS: BASOPHILS # (AUTO) 0.01 K/uL (0.00-0.20); BASOPHILS % (AUTO) 0.3 % (0.0-5.0); EOSINOPHILS # (AUTO) 0.17 K/uL (0.00-0.70); EOSINOPHILS % (AUTO) 4.7 % (0.0-8.0); HEMATOCRIT 32.6 % (36-48); IMMATURE GRANULOCYTE ABSOLUTE 0.01 K/uL (0-1); LYMPHOCYTES % (AUTO) 27.1 % (21.0-51.0); MEAN CORPUSCULAR HEMOGLOBIN 30.1 pg (27.0-33.0); MEAN CORPUSCULAR HGB CONC 32.8 g/dL (32.0-36.0); MEAN CORPUSCULAR VOLUME 91.8 fL (79-99); MONOCYTES # (AUTO) 0.6 K/uL (0.1-1.0); MONOCYTES % (AUTO) 16.6 % (3.0-13.0); NEUTROPHILS # (AUTO) 1.9 K/uL (1.8-7.7); PLATELET COUNT (AUTO) 171 K/uL (130-400); RED BLOOD CELL COUNT(AUTO) 3.55 MIL/uL (4.00-5.50); RED CELL DISTRIBUTION WIDTH 13.4 % (11.0-15.5); WHITE BLOOD COUNT (AUTO) 3.6 K/uL (4.8-10.8)
[2024-04-21 06:24] LABS: CREATININE 1.5 mg/dL (0.5-1.0); POTASSIUM 4.3 mmol/L (3.5-5.1)
[2024-04-21 08:00] VITALS: BP 144/73; PULSE 68; RESP 16
[2024-04-21] MEDS ORDERED: NON-FORMULARY MEDICATION 1 EACH (Pantoprazole Sodium 40 MG) PO SCH (09:00)
[2024-04-21 09:04] VITALS: O2SAT 99
[2024-04-21] MEDS: PANTOPRAZOLE 40 MG TAB DR PO SCH (09:05)
[2024-04-21] MEDS: DULOXETINE HCL 30 MG CAP PO SCH (09:05)
[2024-04-21] MEDS: ENOXAPARIN SODIUM 30 MG/0.3 ML SQ SCH (09:09)
[2024-04-21 11:46] VITALS: BP 130/69; PULSE 70; RESP 17
== END 2024-04-21 16:25 | disposition home or self-care (01) | DRG 690 ==
LOC: EDH 02:17 → EDHIP 02:18 → 3BH 22:14
PROVIDERS: ADMIT Internal Medicine; ATTEND Internal Medicine
DX: N13.6 Pyonephrosis (principal); K56.609 Unspecified intestinal obstruction, unspecified as to partial versus complete obstruction; Z16.12 Extended spectrum beta lactamase (ESBL) resistance; Z16.24 Resistance to multiple antibiotics; E86.0 Dehydration; N17.9 Acute kidney failure, unspecified; E87.5 Hyperkalemia; E11.22 Type 2 diabetes mellitus with diabetic chronic kidney disease; K52.9 Noninfective gastroenteritis and colitis, unspecified; K43.2 Incisional hernia without obstruction or gangrene; I12.9 Hypertensive chronic kidney disease with stage 1 through stage 4 chronic kidney disease, or unspecified chronic kidney disease; B96.4 Proteus (mirabilis) (morganii) as the cause of diseases classified elsewhere; F32.A Depression, unspecified; N18.30 Chronic kidney disease, stage 3 unspecified; Z93.3 Colostomy status; Z85.048 Personal history of other malignant neoplasm of rectum, rectosigmoid junction, and anus; Z85.528 Personal history of other malignant neoplasm of kidney; Z86.19 Personal history of other infectious and parasitic diseases; Z92.21 Personal history of antineoplastic chemotherapy; Z92.3 Personal history of irradiation
CPT/HCPCS: 36415; 71045; 74176; 80048; 80051; 80053; 81001; 82570; 83036; 83605; 83690; 83735; 83935; 84100; 84145; 84300; 84443; 84484; 84550; 85025; 85027; 85610; 85730; 86140; 87086; 93005; G0378; J1650; J2185; J2270; J2405

== ENCOUNTER 2024-05-01 07:23 | Day surgery (SDC) | payer OTHER ==
[2024-04-29 12:44] VITALS: BP 148/68; PULSE 70; RESP 18
[2024-04-29 13:05] LABS: BASOPHILS # (AUTO) 0.01 K/uL (0.00-0.20); BASOPHILS % (AUTO) 0.1 % (0.0-5.0); EOSINOPHILS # (AUTO) 0.18 K/uL (0.00-0.70); EOSINOPHILS % (AUTO) 2.6 % (0.0-8.0); HEMATOCRIT 35.3 % (36-48); IMMATURE GRANULOCYTE ABSOLUTE 0.02 K/uL (0-1); LYMPHOCYTES % (AUTO) 29.3 % (21.0-51.0); MEAN CORPUSCULAR HEMOGLOBIN 30.5 pg (27.0-33.0); MEAN CORPUSCULAR HGB CONC 33.4 g/dL (32.0-36.0); MEAN CORPUSCULAR VOLUME 91.2 fL (79-99); MONOCYTES # (AUTO) 0.7 K/uL (0.1-1.0); NEUTROPHILS % (AUTO) 57.7 % (40.0-77.0); PLATELET COUNT (AUTO) 250 K/uL (130-400); RED BLOOD CELL COUNT(AUTO) 3.87 MIL/uL (4.00-5.50); RED CELL DISTRIBUTION WIDTH 13.5 % (11.0-15.5); WHITE BLOOD COUNT (AUTO) 6.9 K/uL (4.8-10.8)
[2024-04-29 13:19] LABS: INR 1.01 (0.85-1.15); PROTHROMBIN TIME 10.9 SEC (9.6-11.6)
[2024-04-29 13:20] LABS: PARTIAL THROMBOPLASTIN TIME 27.9 SEC (26.3-35.5)
[2024-04-29 13:23] LABS: CREATININE 1.5 mg/dL (0.5-1.0); POTASSIUM 4.7 mmol/L (3.5-5.1)
[~2024-05-01] VITALS: Ht 154.9 cm; Wt 59.4 kg
[2024-05-01] MEDS ORDERED: 0.9%NACL 1000ML 1,000 ML IV ONE (08:49)
[2024-05-01 09:24] VITALS: BP 148/68; PULSE 70; RESP 18
[2024-05-01] MEDS ORDERED: LIDOCAINE HCL 1% MDV 50ML VIAL ONE (13:24)
[2024-05-01] MEDS ORDERED: IOHEXOL-350 75 ML VIAL IV ONE (13:24)
[2024-05-01] MEDS ORDERED: MIDAZOLAM HCL 1 MG/ML 2ML VIAL ONE (13:54)
[2024-05-01] MEDS ORDERED: FENTANYL CITRATE PF 50 MCG/1 ML 2ML VIAL ONE (13:54)
[2024-05-01 14:40] VITALS: BP 139/69; PULSE 74; RESP 14
[2024-05-01 14:55] VITALS: BP 128/74; PULSE 80; RESP 14
[2024-05-01 15:10] VITALS: BP 137/62; PULSE 82; RESP 14
[2024-05-01 15:25] VITALS: BP 134/67; PULSE 78; RESP 14
[2024-05-01 15:40] VITALS: BP 138/67; PULSE 79; RESP 14
== END 2024-05-01 15:50 | disposition home or self-care (01) ==
LOC: DAH 07:23
PROVIDERS: ATTEND Urology
DX: N13.1 Hydronephrosis with ureteral stricture, not elsewhere classified (principal); N18.31 Chronic kidney disease, stage 3a; Z79.01 Long term (current) use of anticoagulants; Z88.8 Allergy status to other drugs, medicaments and biological substances; Z79.899 Other long term (current) drug therapy
CPT/HCPCS: 80048; 85025; 85610; 85730; 36415; 50693; 50435; C1769 ×2; C2617; C1729; J3010; J7030; J2250; J1644; J3490; Q9967; A4215; A4222; A4221; A4663; A4216; A4606; A4223 ×3; 99156; 99157

== ENCOUNTER 2024-06-14 04:18 | Inpatient (IN) | payer OTHER ==
[~2024-06-14] VITALS: Ht 152.4 cm; Wt 59.0 kg
[2024-06-14] MEDS: ondanSETRON 4MG INJ IVP ONE ×2 (04:38→06:44)
[2024-06-14 04:42] LABS: BASOPHILS # (AUTO) 0.02 K/uL (0.00-0.20); BASOPHILS % (AUTO) 0.1 % (0.0-5.0); EOSINOPHILS # (AUTO) 0.04 K/uL (0.00-0.70); EOSINOPHILS % (AUTO) 0.3 % (0.0-8.0); HEMATOCRIT 35.2 % (36-48); IMMATURE GRANULOCYTE ABSOLUTE 0.08 K/uL (0-1); LYMPHOCYTES % (AUTO) 6.6 % (21.0-51.0); MEAN CORPUSCULAR HEMOGLOBIN 30.1 pg (27.0-33.0); MEAN CORPUSCULAR HGB CONC 33.8 g/dL (32.0-36.0); MEAN CORPUSCULAR VOLUME 88.9 fL (79-99); MONOCYTES # (AUTO) 0.6 K/uL (0.1-1.0); MONOCYTES % (AUTO) 3.7 % (3.0-13.0); NEUTROPHILS # (AUTO) 13.7 K/uL (1.8-7.7); NEUTROPHILS % (AUTO) 88.8 % (40.0-77.0); PLATELET COUNT (AUTO) 285 K/uL (130-400); RED BLOOD CELL COUNT(AUTO) 3.96 MIL/uL (4.00-5.50); RED CELL DISTRIBUTION WIDTH 12.6 % (11.0-15.5); WHITE BLOOD COUNT (AUTO) 15.4 K/uL (4.8-10.8)
[2024-06-14 05:00] LABS: ALBUMIN 3.2 g/dL (3.5-5.0); BILIRUBIN,TOTAL 0.4 mg/dL (0.2-1.0); CREATININE 1.8 mg/dL (0.5-1.0); POTASSIUM 4.3 mmol/L (3.5-5.1); TOTAL PROTEIN, SERUM 8.9 g/dL (6.0-8.3)
[2024-06-14] MEDS: FAMOTIDINE 20MG VIAL IV ONE (05:05)
[2024-06-14] MEDS: morPHINE 2 MG SYG IVP ONE (05:05)
[2024-06-14] MEDS: 0.9%NACL 1000ML 1,000 ML IV ONE (05:06)
[2024-06-14] MEDS: metRONIDazole 500MG/100ML BAG IV SCH (06:53)
[2024-06-14 07:04] LABS: APPEARANCE,URINE CLOUDY (CLEAR); BILIRUBIN,URINE NEGATIVE (NEGATIVE); COLOR,URINE LIGHT-YELLOW (YELLOW); GLUCOSE, URINE (UA) NEGATIVE (NEGATIVE); KETONES,URINE NEGATIVE (NEGATIVE); LEUKOCYTE ESTERASE ,URINE 500 Leu/uL (NEGATIVE); NITRATE,URINE 2+ (NEGATIVE); OCCULT BLOOD,URINE NEGATIVE (NEGATIVE); PH,URINE 8.5 (5.0-8.0); PROTEIN,URINE 100 mg/dL (NEGATIVE); UROBILINOGEN,URINE 0.2 mg/dL (0.2-1.0)
[2024-06-14 07:17] LABS: ADD UA MICROSCOPIC YES
[2024-06-14 07:24] LABS: BACTERIA,URINE Few /HPF (None Seen)
[2024-06-14] MEDS ORDERED: MEROPENEM 1 GM in 0.9%NACL 100ML 100 ML IVPB SCH (09:00)
[2024-06-14 10:51] LABS: INR 1.01 (0.85-1.15); PROTHROMBIN TIME 10.9 SEC (9.6-11.6)
[2024-06-14 10:52] LABS: PARTIAL THROMBOPLASTIN TIME 27.3 SEC (26.3-35.5)
[2024-06-14] MEDS: MEROPENEM 1 GM VIAL IVPB ONE (11:49)
[2024-06-14] MEDS: 0.9%NACL 1000ML 1,000 ML IV SCH (11:49)
[2024-06-14 17:15] VITALS: BP 123/55; PULSE 83; RESP 18; TEMP 98
[2024-06-14 20:00] VITALS: BP 117/61; PULSE 83; RESP 18; TEMP 99.1
[2024-06-14] MEDS: FAMOTIDINE 20MG VIAL IV SCH (20:22)
[2024-06-14] MEDS ORDERED: PHARMACY COMMUNICATION MISC SCH (21:00)
[2024-06-14] MEDS ORDERED: COMPOUND IV MISC 1 EACH IVSOLN MISC PRN (21:00)
[2024-06-14] MEDS: MEROPENEM 500 MG in 0.9%NACL 100ML 100 ML IV SCH (22:30)
[2024-06-15] VITALS: BP 122/66; PULSE 90; RESP 18; TEMP 98.6
[2024-06-15 03:44] LABS: BASOPHILS # (AUTO) 0.01 K/uL (0.00-0.20); BASOPHILS % (AUTO) 0.1 % (0.0-5.0); EOSINOPHILS # (AUTO) 0.17 K/uL (0.00-0.70); EOSINOPHILS % (AUTO) 2.2 % (0.0-8.0); HEMATOCRIT 33.7 % (36-48); IMMATURE GRANULOCYTE ABSOLUTE 0.02 K/uL (0-1); LYMPHOCYTES # (AUTO) 1.1 K/uL (1.0-4.8); LYMPHOCYTES % (AUTO) 14.5 % (21.0-51.0); MEAN CORPUSCULAR HEMOGLOBIN 30.6 pg (27.0-33.0); MEAN CORPUSCULAR HGB CONC 32.6 g/dL (32.0-36.0); MEAN CORPUSCULAR VOLUME 93.9 fL (79-99); MONOCYTES # (AUTO) 0.7 K/uL (0.1-1.0); MONOCYTES % (AUTO) 9.4 % (3.0-13.0); NEUTROPHILS # (AUTO) 5.7 K/uL (1.8-7.7); NEUTROPHILS % (AUTO) 73.5 % (40.0-77.0); PLATELET COUNT (AUTO) 229 K/uL (130-400); RED BLOOD CELL COUNT(AUTO) 3.59 MIL/uL (4.00-5.50); RED CELL DISTRIBUTION WIDTH 13.1 % (11.0-15.5); WHITE BLOOD COUNT (AUTO) 7.8 K/uL (4.8-10.8)
[2024-06-15 04:00] VITALS: BP 130/65; PULSE 80; RESP 18; TEMP 98.4
[2024-06-15 04:00] LABS: % IRON SATURATION 17.9 % (22-44)
[2024-06-15 04:11] LABS: ALBUMIN 2.6 g/dL (3.5-5.0); BILIRUBIN,TOTAL 0.6 mg/dL (0.2-1.0); CREATININE 1.8 mg/dL (0.5-1.0); MAGNESIUM 2.1 mg/dL (1.80-2.40); PHOSPHORUS 3.5 mg/dL (2.5-4.9); POTASSIUM 4.3 mmol/L (3.5-5.1); TOTAL PROTEIN, SERUM 7.5 g/dL (6.0-8.3); URIC ACID 5.6 mg/dL (2.6-7.2)
[2024-06-15 08:00] VITALS: BP 122/75; PULSE 85; RESP 18; TEMP 98.9; O2SAT 98
[2024-06-15] MEDS: morPHINE 2 MG SYG IVP PRN (08:01)
[2024-06-15] MEDS: THIAMINE HCL 100 MG/ML 2ML VIAL IVP SCH (08:04)
[2024-06-15] MEDS: ENOXAPARIN SODIUM 30 MG/0.3 ML SQ SCH (09:56)
[2024-06-15 12:00] VITALS: BP 134/69; PULSE 91; RESP 17; TEMP 99.3
[2024-06-15 16:00] VITALS: BP_SYST 126; BP_SYST 128; BP_DIAS 63; BP_DIAS 64; PULSE 84; PULSE 88; RESP 16; RESP 18; TEMP 98.9; TEMP 99
[2024-06-15 20:00] VITALS: BP 140/71; PULSE 82; RESP 18; TEMP 98.9
[2024-06-16] VITALS: BP 132/71; PULSE 79; RESP 18; TEMP 98.3
[2024-06-16 04:00] VITALS: BP 141/73; PULSE 93; RESP 18; TEMP 98.7
[2024-06-16 05:23] LABS: BASOPHILS # (AUTO) 0.01 K/uL (0.00-0.20); BASOPHILS % (AUTO) 0.2 % (0.0-5.0); EOSINOPHILS # (AUTO) 0.15 K/uL (0.00-0.70); EOSINOPHILS % (AUTO) 2.3 % (0.0-8.0); HEMATOCRIT 33.7 % (36-48); IMMATURE GRANULOCYTE ABSOLUTE 0.01 K/uL (0-1); LYMPHOCYTES # (AUTO) 1.2 K/uL (1.0-4.8); LYMPHOCYTES % (AUTO) 19.2 % (21.0-51.0); MEAN CORPUSCULAR HEMOGLOBIN 30.4 pg (27.0-33.0); MEAN CORPUSCULAR HGB CONC 31.8 g/dL (32.0-36.0); MEAN CORPUSCULAR VOLUME 95.7 fL (79-99); MONOCYTES # (AUTO) 0.6 K/uL (0.1-1.0); MONOCYTES % (AUTO) 9.8 % (3.0-13.0); NEUTROPHILS # (AUTO) 4.4 K/uL (1.8-7.7); NEUTROPHILS % (AUTO) 68.3 % (40.0-77.0); PLATELET COUNT (AUTO) 219 K/uL (130-400); RED BLOOD CELL COUNT(AUTO) 3.52 MIL/uL (4.00-5.50); RED CELL DISTRIBUTION WIDTH 12.9 % (11.0-15.5); WHITE BLOOD COUNT (AUTO) 6.5 K/uL (4.8-10.8)
[2024-06-16] MEDS: DEXTROSE 50%-WATER 50 ML DISP.SYRIN IV STA (05:24)
[2024-06-16 06:02] LABS: CREATININE 1.6 mg/dL (0.5-1.0); PHOSPHORUS 3.3 mg/dL (2.5-4.9); POTASSIUM 3.9 mmol/L (3.5-5.1)
[2024-06-16 08:00] VITALS: BP 150/76; PULSE 78; RESP 19; TEMP 98.4
[2024-06-16] MEDS: PANTOPrazole 40 MG/VIAL IVP SCH (10:34)
[2024-06-16 12:00] VITALS: BP 133/73; PULSE 78; RESP 18; TEMP 98.6
[2024-06-16 16:00] VITALS: BP 127/77; PULSE 78; RESP 17; TEMP 99
[2024-06-16] MEDS ORDERED: GLUCAGON 1MG KIT 1 MG ML IM PRN (17:00)
[2024-06-16 20:00] VITALS: BP 142/71; PULSE 80; RESP 18; TEMP 98.5; O2SAT 98
[2024-06-16] MEDS ORDERED: PANTOPrazole 40 MG/VIAL IVP SCH (21:00)
[2024-06-16] MEDS ORDERED: IRON sUCROse COMPLEX 300 MG in 0.9% NACL 250ML 250 ML IV ONE (21:00)
[2024-06-16] MEDS: BENZOCAINE/MENTH/CETYLPYRD CL 1 EACH LOZENGE MM PRN (21:56)
[2024-06-17] VITALS (7 sets, daily range): BP systolic 110–141; BP diastolic 58–77; PULSE 66–86; RESP 18–20; TEMP 98.2–99.1; O2SAT 98–99
[2024-06-17] MEDS: INSULIN humuLIN R 100 UNIT/ML 3ML SQ SCH
[2024-06-17] MEDS: DEXTROSE 50%-WATER 50 ML DISP.SYRIN IV PRN (00:04)
[2024-06-17 04:33] LABS: BASOPHILS # (AUTO) 0.01 K/uL (0.00-0.20); BASOPHILS % (AUTO) 0.2 % (0.0-5.0); EOSINOPHILS # (AUTO) 0.22 K/uL (0.00-0.70); EOSINOPHILS % (AUTO) 3.8 % (0.0-8.0); HEMATOCRIT 32.5 % (36-48); IMMATURE GRANULOCYTE ABSOLUTE 0.02 K/uL (0-1); LYMPHOCYTES # (AUTO) 1.2 K/uL (1.0-4.8); LYMPHOCYTES % (AUTO) 21.1 % (21.0-51.0); MEAN CORPUSCULAR HEMOGLOBIN 30.3 pg (27.0-33.0); MEAN CORPUSCULAR VOLUME 94.8 fL (79-99); MONOCYTES # (AUTO) 0.6 K/uL (0.1-1.0); NEUTROPHILS # (AUTO) 3.6 K/uL (1.8-7.7); NEUTROPHILS % (AUTO) 63.6 % (40.0-77.0); PLATELET COUNT (AUTO) 200 K/uL (130-400); RED BLOOD CELL COUNT(AUTO) 3.43 MIL/uL (4.00-5.50); RED CELL DISTRIBUTION WIDTH 12.6 % (11.0-15.5); WHITE BLOOD COUNT (AUTO) 5.7 K/uL (4.8-10.8)
[2024-06-17 04:42] LABS: CREATININE 1.7 mg/dL (0.5-1.0); PHOSPHORUS 3.7 mg/dL (2.5-4.9); POTASSIUM 3.7 mmol/L (3.5-5.1)
[2024-06-17] MEDS: DEXTROSE 5%-LACTATED RINGERS 1,000 ML IV SCH (05:14)
[2024-06-17] MEDS: PoTASSium chloRIDE 20MEQ/100ML 100 ML IV PRN (05:19)
[2024-06-18] VITALS (7 sets, daily range): BP systolic 111–140; BP diastolic 63–84; PULSE 68–101; RESP 18–20; TEMP 98.4–99.4; O2SAT 98–99
[2024-06-18 03:47] LABS: BASOPHILS # (AUTO) 0.01 K/uL (0.00-0.20); BASOPHILS % (AUTO) 0.2 % (0.0-5.0); EOSINOPHILS # (AUTO) 0.26 K/uL (0.00-0.70); EOSINOPHILS % (AUTO) 5.1 % (0.0-8.0); IMMATURE GRANULOCYTE ABSOLUTE 0.02 K/uL (0-1); LYMPHOCYTES # (AUTO) 1.4 K/uL (1.0-4.8); MEAN CORPUSCULAR HEMOGLOBIN 30.6 pg (27.0-33.0); MEAN CORPUSCULAR HGB CONC 33.4 g/dL (32.0-36.0); MEAN CORPUSCULAR VOLUME 91.4 fL (79-99); MONOCYTES # (AUTO) 0.6 K/uL (0.1-1.0); NEUTROPHILS # (AUTO) 2.8 K/uL (1.8-7.7); NEUTROPHILS % (AUTO) 55.3 % (40.0-77.0); PLATELET COUNT (AUTO) 223 K/uL (130-400); RED CELL DISTRIBUTION WIDTH 12.9 % (11.0-15.5); WHITE BLOOD COUNT (AUTO) 5.1 K/uL (4.8-10.8)
[2024-06-18 04:04] LABS: ALBUMIN 2.5 g/dL (3.5-5.0); BILIRUBIN,TOTAL 0.4 mg/dL (0.2-1.0); CREATININE 1.5 mg/dL (0.5-1.0); MAGNESIUM 1.8 mg/dL (1.80-2.40); POTASSIUM 3.7 mmol/L (3.5-5.1); TOTAL PROTEIN, SERUM 7.4 g/dL (6.0-8.3)
[2024-06-18] MEDS: MAGNESIUM 2GM PREMIX 50ML 50 ML IV PRN (05:22)
[2024-06-18] MEDS: INSULIN humuLIN R 100 UNIT/ML 3ML SQ SCH (21:00)
[2024-06-19] VITALS (9 sets, daily range): BP systolic 113–155; BP diastolic 62–75; PULSE 64–80; RESP 16–19; TEMP 97.8–99; O2SAT 98–99
[2024-06-19 04:49] LABS: HEMATOCRIT 31.6 % (36-48); MEAN CORPUSCULAR HEMOGLOBIN 30.4 pg (27.0-33.0); MEAN CORPUSCULAR HGB CONC 33.2 g/dL (32.0-36.0); MEAN CORPUSCULAR VOLUME 91.6 fL (79-99); RED BLOOD CELL COUNT(AUTO) 3.45 MIL/uL (4.00-5.50); RED CELL DISTRIBUTION WIDTH 12.6 % (11.0-15.5)
[2024-06-19 05:10] LABS: ALBUMIN 2.5 g/dL (3.5-5.0); BILIRUBIN,TOTAL 0.4 mg/dL (0.2-1.0); CREATININE 1.4 mg/dL (0.5-1.0); POTASSIUM 3.6 mmol/L (3.5-5.1); TOTAL PROTEIN, SERUM 7.4 g/dL (6.0-8.3)
[2024-06-20 03:00] VITALS: BP 117/75; PULSE 75; RESP 16; TEMP 98.1
[2024-06-20 04:57] LABS: HEMATOCRIT 30.3 % (36-48); MEAN CORPUSCULAR HEMOGLOBIN 30.3 pg (27.0-33.0); MEAN CORPUSCULAR HGB CONC 33.3 g/dL (32.0-36.0); RED BLOOD CELL COUNT(AUTO) 3.33 MIL/uL (4.00-5.50); RED CELL DISTRIBUTION WIDTH 12.7 % (11.0-15.5); WHITE BLOOD COUNT (AUTO) 4.2 K/uL (4.8-10.8)
[2024-06-20 05:28] LABS: CREATININE 1.6 mg/dL (0.5-1.0); POTASSIUM 3.6 mmol/L (3.5-5.1)
[2024-06-20 08:00] VITALS: BP 150/73; PULSE 67; RESP 18; TEMP 98; O2SAT 98
[2024-06-20 09:00] VITALS: BP 150/73; PULSE 67; RESP 18; TEMP 98
[2024-06-20 12:00] VITALS: BP 135/69; PULSE 72; RESP 18; TEMP 98.7
== END 2024-06-20 14:40 | disposition home or self-care (01) | DRG 247 ==
LOC: EDH 04:18 → EDHIP 09:56 → 4CH 16:57
PROVIDERS: ADMIT Internal Medicine; ATTEND Internal Medicine
DX: K56.690 Other partial intestinal obstruction (principal); N17.9 Acute kidney failure, unspecified; N13.30 Unspecified hydronephrosis; D63.1 Anemia in chronic kidney disease; E86.0 Dehydration; D72.829 Elevated white blood cell count, unspecified; N18.9 Chronic kidney disease, unspecified; I12.9 Hypertensive chronic kidney disease with stage 1 through stage 4 chronic kidney disease, or unspecified chronic kidney disease; K80.20 Calculus of gallbladder without cholecystitis without obstruction; F32.A Depression, unspecified; K59.09 Other constipation; Z93.3 Colostomy status; Z93.6 Other artificial openings of urinary tract status; Z92.3 Personal history of irradiation; Z92.21 Personal history of antineoplastic chemotherapy; Z86.19 Personal history of other infectious and parasitic diseases; Z85.528 Personal history of other malignant neoplasm of kidney; Z85.048 Personal history of other malignant neoplasm of rectum, rectosigmoid junction, and anus
CPT/HCPCS: 36415; 74018; 74176; 74250; 80048; 80053; 81001; 82378; 82728; 82948; 83540; 83550; 83605; 83690; 83735; 84100; 84145; 84443; 84550; 85025; 85027; 85610; 85730; 87086; 87186; 96374; 96375; 99291; G0378; J1650; J2185; J2270; J2405; J2470; J3411; J3475; J3480; J3490; J7030; J7070; Q9963

== ENCOUNTER 2024-08-09 05:44 | Day surgery (SDC) | payer OTHER ==
[2024-08-08 14:56] LABS: BASOPHILS # (AUTO) 0.01 K/uL (0.00-0.20); BASOPHILS % (AUTO) 0.1 % (0.0-5.0); EOSINOPHILS # (AUTO) 0.21 K/uL (0.00-0.70); HEMATOCRIT 36.3 % (36-48); IMMATURE GRANULOCYTE ABSOLUTE 0.02 K/uL (0-1); LYMPHOCYTES # (AUTO) 2.1 K/uL (1.0-4.8); MEAN CORPUSCULAR HEMOGLOBIN 31.4 pg (27.0-33.0); MEAN CORPUSCULAR HGB CONC 33.1 g/dL (32.0-36.0); MONOCYTES # (AUTO) 0.8 K/uL (0.1-1.0); MONOCYTES % (AUTO) 10.8 % (3.0-13.0); NEUTROPHILS # (AUTO) 3.9 K/uL (1.8-7.7); NEUTROPHILS % (AUTO) 55.8 % (40.0-77.0); PLATELET COUNT (AUTO) 193 K/uL (130-400); RED BLOOD CELL COUNT(AUTO) 3.82 MIL/uL (4.00-5.50); RED CELL DISTRIBUTION WIDTH 13.2 % (11.0-15.5); WHITE BLOOD COUNT (AUTO) 6.9 K/uL (4.8-10.8)
[2024-08-08 15:12] VITALS: BP 142/63; PULSE 76; RESP 18; TEMP 97.9
[2024-08-08 15:15] LABS: CREATININE 1.6 mg/dL (0.5-1.0); POTASSIUM 4.5 mmol/L (3.5-5.1)
[2024-08-08 15:16] LABS: PROTHROMBIN TIME 10.8 SEC (9.6-11.6)
[2024-08-08 15:17] LABS: PARTIAL THROMBOPLASTIN TIME 27.6 SEC (26.3-35.5)
[~2024-08-09] VITALS: Ht 152.4 cm; Wt 59.0 kg
[~2024-08-09 05:44] MED LIST changes: +FOLI0.8T53 PO; -FOLI1TAB85 PO; +LEVO25TA54 PO
[2024-08-09 06:00] VITALS: BP 139/73; PULSE 87; RESP 16; TEMP 97.9
[2024-08-09] MEDS: 0.9%NACL 1000ML 1,000 ML IV ONE (06:29)
[2024-08-09] MEDS ORDERED: LIDOCAINE HCL 400MG/20ML VIAL ONE (11:38)
[2024-08-09] MEDS ORDERED: IOHEXOL-350 50ML VIAL IV ONE (11:39)
[2024-08-09] MEDS ORDERED: HEParin-NS 1,000 UNIT/500 ML 500 ML IV ONE (11:42)
[2024-08-09 12:20] VITALS: BP 144/66; PULSE 72; RESP 16; TEMP 97.4
[2024-08-09 12:35] VITALS: BP 149/72; PULSE 87; RESP 16
[2024-08-09 12:50] VITALS: BP 144/72; PULSE 76; RESP 16
[2024-08-09 13:05] VITALS: BP 138/66; PULSE 77; RESP 16
[2024-08-09 13:20] VITALS: BP 140/70; PULSE 80; RESP 16; TEMP 97.4
== END 2024-08-09 13:20 | disposition home or self-care (01) ==
LOC: DAH 05:44
PROVIDERS: ATTEND Urology
DX: N13.39 Other hydronephrosis (principal); N18.32 Chronic kidney disease, stage 3b; Z79.01 Long term (current) use of anticoagulants; Z93.3 Colostomy status; Z88.1 Allergy status to other antibiotic agents; Z79.899 Other long term (current) drug therapy
CPT/HCPCS: 80048; 85025; 85610; 85730; 36415; 50435; 82948; C1894; C1729; J3490; J7030; J1644; Q9967; A4215; A4222; A4221; A4663; A4216; A4606; A4223 ×3

== ENCOUNTER 2024-08-26 12:01 | Observation (INO) | payer OTHER ==
[~2024-08-26] VITALS: Ht 162.6 cm; Wt 56.8 kg
[2024-08-26] MEDS: 0.9%NACL 1000ML 1,000 ML IV ONE (13:56)
[2024-08-26 14:01] LABS: BASOPHILS # (AUTO) 0.01 K/uL (0.00-0.20); BASOPHILS % (AUTO) 0.1 % (0.0-5.0); EOSINOPHILS # (AUTO) 0.15 K/uL (0.00-0.70); EOSINOPHILS % (AUTO) 1.7 % (0.0-8.0); HEMATOCRIT 39.2 % (36-48); IMMATURE GRANULOCYTE ABSOLUTE 0.02 K/uL (0-1); LYMPHOCYTES # (AUTO) 2.2 K/uL (1.0-4.8); LYMPHOCYTES % (AUTO) 25.5 % (21.0-51.0); MEAN CORPUSCULAR HEMOGLOBIN 30.8 pg (27.0-33.0); MEAN CORPUSCULAR HGB CONC 32.9 g/dL (32.0-36.0); MEAN CORPUSCULAR VOLUME 93.6 fL (79-99); MONOCYTES # (AUTO) 0.7 K/uL (0.1-1.0); MONOCYTES % (AUTO) 8.3 % (3.0-13.0); NEUTROPHILS # (AUTO) 5.6 K/uL (1.8-7.7); NEUTROPHILS % (AUTO) 64.2 % (40.0-77.0); PLATELET COUNT (AUTO) 215 K/uL (130-400); RED BLOOD CELL COUNT(AUTO) 4.19 MIL/uL (4.00-5.50); RED CELL DISTRIBUTION WIDTH 12.9 % (11.0-15.5); WHITE BLOOD COUNT (AUTO) 8.8 K/uL (4.8-10.8)
--- NOTE | 2024-08-26 14:05 | ERN ---
ED Note History of Present Illness Stated Complaint: DIRECT ADMIT Chief Complaint: Other Problems Dictation: 73-year-old female presents to the ED to be admitted for a scheduled colonoscopy tomorrow that will be performed by Dr. Meneses. Patient is here for GI preparation. History of colonoscopy and nephrostomy tube. Allergies: Coded Allergies: ceftriaxone (Verified Allergy, Mild, 06/14/24) HIVES Home Meds Reported Medications Levothyroxine Sodium (Levothyroxine Sodium) 25 Mcg Tablet, 25 MCG PO ACBKFST, TAB 08/08/24 Folic Acid/Vit B Complex and C (Nephro Vitamins Tablet) 0.8 Mg Tablet, 0.8 MG PO DAILY, TAB 08/08/24 Pantoprazole Sodium (Pantoprazole Sodium) 40 Mg Granpkt.dr, 40 MG PO DAILY, PACK 03/11/24 Ferrous Sulfate (Ferosul) 325 Mg (65 Mg Iron) Tablet, 325 MG PO DAILY, TAB 03/11/24 Duloxetine HCl (Duloxetine HCl) 30 Mg Capsule.dr, 30 MG PO DAILY, CAP 03/11/24 Sodium Bicarbonate (Sodium Bicarbonate) 650 Mg Tablet, 650 MG PO TID, TAB 03/11/24 Past Medical History Past Medical History: Cancer, Other Additional Past Medical Hx: COLON CA, ESBL, COLON CANCER Surgical History: Other Surgical History Other: BILATERAL NEPHROSTOMY TUBE PLACED 2021, COLOSTOMY RT UPPER QUADRANT Family History: HTN, Negative Social History: Negative, Lives with family, Other History: Not Applicable Review of System Dictation Constitutional: Negative for fever,chills, and weight loss Eyes: Negative for injury, pain,redness, and discharge ENT: Negative for injury,pain or swelling Cardiovascular: Negative for chest pain, palpitations, and edema Respiratory: Negative for shortness of breath, cough, and wheezing, Abdomen/GI: Negative for abdominal pain, nausea, vomiting, diarrhea, and constipation Back: Negative for injury and pain : Negative for injury, bleeding and discharge MS/Extremity: Negative for injury and deformity Skin: Negative for rash, and discoloration Neuro: Negative for headache, weakness, numbness, tingling, and seizure Psych: Negative for suicide ideation, homicidal ideation, and hallucinations Initial Vital Sign VS Vital Signs Date Time Temp Pulse Resp B/P (MAP) Pulse Ox O2 Delivery O2 Flow Rate FiO2 08/26/24 12:29 97.9 74 16 142/74 99 Room Air 0 08/26/24 14:04 21 Physical Exam Dictation General: awake, alert, NAD, right-sided nephrostomy tube in place Head/Face: Normocephalic, atraumatic Eyes: PERRL, EOMI, vision at baseline ENT: oral cavity clear, TMs clear, no signs of infection Neck: Trachea midline, supple, no nuchal rigidity Cardiovascular: RRR, normal S1/S2, No MRGs, no JVD Respiratory: CTAB, no respiratory distress, No rales or wheezes Abdomen: Soft, non-tender, non-distended, normal bowel sounds, colostomy Skin: Warm, dry, normal turgor, no rash MS/Extremity: Pulses equal, no cyanosis, neurovascular intact, FROM Neuro: COAx4, GCS 15, strength 5/5, CN 2-12 intact, normal cerebellar exam, normal gait, Psych: Normal behavior, mood, and affect normal Results (Laboratory/Radiology) Laboratory/Radiology Laboratory Tests Test 08/26/24 13:55 White Blood Count 8.8 K/uL (4.8-10.8) Red Blood Count 4.19 MIL/uL (4.00-5.50) Hemoglobin 12.9 g/dL (12.0-16.0) Hematocrit 39.2 % (36-48) Mean Corpuscular Volume 93.6 fL (79-99) Mean Corpuscular Hemoglobin 30.8 pg (27.0-33.0) Mean Corpuscular Hemoglobin Concent 32.9 g/dL (32.0-36.0) Red Cell Distribution Width 12.9 % (11.0-15.5) Platelet Count 215 K/uL (130-400) Mean Platelet Volume 8.9 fL (7.5-10.5) Immature Granulocyte % (Auto) 0.2 % (0-1) Neutrophils (%) (Auto) 64.2 % (40.0-77.0) Lymphocytes (%) (Auto) 25.5 % (21.0-51.0) Monocytes (%) (Auto) 8.3 % (3.0-13.0) Eosinophils (%) (Auto) 1.7 % (0.0-8.0) Basophils (%) (Auto) 0.1 % (0.0-5.0) Neutrophils # (Auto) 5.6 K/uL (1.8-7.7) Lymphocytes # (Auto) 2.2 K/uL (1.0-4.8) Monocytes # (Auto) 0.7 K/uL (0.1-1.0) Eosinophils # (Auto) 0.15 K/uL (0.00-0.70) Basophils # (Auto) 0.01 K/uL (0.00-0.20) Absolute Immature Granulocyte (auto 0.02 K/uL (0-1) Nucleated Red Blood Cells 0.0 % (0.0-0.19) Sodium Level 137 mmol/L (136-145) Potassium Level 4.3 mmol/L (3.5-5.1) Chloride Level 103 mmol/L (101-111) Carbon Dioxide Level 28 mmol/L (21-32) Blood Urea Nitrogen 22 mg/dL (7-18) H Creatinine 1.7 mg/dL (0.5-1.0) H Glomerular Filtration Rate Calc 31 mL/min (>90) Random Glucose 101 mg/dL (70-105) Total Calcium 9.4 mg/dL (8.5-10.1) Total Creatine Kinase 51 U/L (21-232) # Labs Reviewed?: Yes EKG Comment: EKG 08/26/2024 time 1:54 p.m. ventricular rate 74 sinus rhythm, ND 144, QRS D 91, QT 384. No STEMI ED Course ED Course Orders Procedure Category Date Status Time 12 Lead Ekg Tracing- EKG 08/26/24 Complete Technical 13:40 Basic Metabolic Panel LAB 08/26/24 Complete 13:40 Cbc With Differential LAB 08/26/24 Complete 13:40 Creatine Kinase, Total LAB 08/26/24 Complete 13:40 0.9%Nacl 1000ml (Ns PHA 08/26/24 Complete 1000ml) 14:00 Edm Admit Bridge Order ADM 08/26/24 Transmitted 14:51 Admit Orders ADM 08/26/24 Transmitted 15:06 Ondansetron 4mg Inj PHA 08/26/24 In Process (Zofran 4mg Inj) 15:30 Acetaminophen 325 Tab PHA 08/26/24 In Process (Tylenol 325mg Tab 15:30 Famotidine 20mg Vial PHA 08/26/24 In Process (Pepcid 20mg Vial) 21:00 Lactated Ringers PHA 08/26/24 In Process 1000ml (Lactated 15:30 Nothing By Mouth DIET 08/26/24 Transmitted [facility] CONPHYSVC 08/26/24 Transmitted Consult 15:29 Gastroenterology CONPHYSVC 08/26/24 Transmitted Consult 15:29 Acetaminophen With PHA 08/26/24 In Process Codeine (Tylenol-Code 16:00 Initiate Npo SILVANO 08/26/24 In Process Hypokalemia Willy 15:36 Potassium Chloride PHA 08/26/24 In Process 20meq/100ml (Potassiu 16:00 Notify Physician If CPOE 08/26/24 Transmitted There Is 15:36 Notify Md On The Next CPOE 08/26/24 Transmitted 15:36 Notify Md On The CPOE 08/26/24 Transmitted Next(Cont.) 15:36 Magnesium 2gm Premix PHA 08/26/24 In Process 50ml (Magnesium 2gm 16:00 *Nursing CPOE 08/26/24 Transmitted Communication: 15:38 Cbc With Differential LAB 08/27/24 Verified 04:00 Comprehensive LAB 08/27/24 Verified Metabolic Panel 04:00 Magnesium LAB 08/27/24 Verified 04:00 Dietary Cons For DIETOTHR 08/26/24 Transmitted Malnutrition 16:03 Current Medications Medications (Trade) Dose Ordered Sig/Rey Route PRN Reason Start Time Stop Time Status Last Admin Dose Admin Sodium Chloride 1,000 ml @ 0 mls/hr ONCE ONCE IV 08/26/24 14:00 08/26/24 14:01 DC 08/26/24 13:56 Vital Signs Date Time Temp Pulse Resp B/P (MAP) Pulse Ox O2 Delivery O2 Flow Rate FiO2 08/26/24 17:28 97.9 69 18 133/68 100 Room Air* 0 08/26/24 15:49 97.9 72 18 133/58 98 Room Air* 0 08/26/24 14:04 97.9 73 18 129/56 100 Room Air* 0 08/26/24 12:29 97.9 74 16 142/74 99 Room Air 0 HEART Score Response (Comments) Value History: Low suspicion (0) 0 EKG: Normal 0 Age: > 65yrs (+2) 2 Risk Factors: 1-2 risk factors (+1) 1 Initial Troponin: Normal limit (0) 0 HEART Score Risk: Low Risk for MACE (1-3) Total 3 Medical Decision Making MDM MDM: Differential diagnosis: Colonoscopy, acute dehydration, GI prep 1451- Hospitalist consult accepts patient for admission Rationale: Tests considered and ordered secondary to shared decision making include: labs, ECG Risk of complication and/or morbidity or mortality of patient management: None Medications-Per medication reconciliation Need for hospitalization: Patient does meet criteria for hospitalization. Need for emergency major/minor surgery: No There are no social concerns with this patient. I independently interpreted the test that were performed, results were reviewed by me and considered findings on radiology if ordered. Medical management and examination interpretation discussions were had by me with other qualified healthcare professionals as indicated for the patient's care. DX & DISP Disposition: Inpatient Decision to Admit Date: Aug 26, 2024 Decision to Admit Time: 14:51 Departure Impression: Primary Impression: Acute dehydration Additional Impression: GI preparation Condition: Stable Referrals: BALA CAMACHO PA-C (PCP) I have reviewed, & agreed with my scribe's, documentation. (Entered by Maddie Love, acting as a scribe for Dr. Riley) I personally scribed for NORMA RILEY MD ([email or web address]) on 08/26/24 at 14:05. Electronically submitted by Maddie Love ([email or web address]). I personally scribed for NORMA RILEY MD ([email or web address]) on 08/26/24 at 14:54. Electronically submitted by Maddie Love ([email or web address]). I personally scribed for NORMA RILEY MD ([facility]) on 08/26/24 at 14:58. Electronically submitted by Maddie Love ([email or web address]). I personally scribed for NORMA RILEY MD ([email or web address]) on 08/26/24 at 18:03. Electronically submitted by Maddie Love ([email or web address]). NORMA RILEY MD Aug 26, 2024 14:05
[2024-08-26 14:07] LABS: CREATININE 1.7 mg/dL (0.5-1.0); POTASSIUM 4.3 mmol/L (3.5-5.1)
--- NOTE | 2024-08-26 14:20 | EKG ---
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
--- NOTE | 2024-08-26 15:12 | HP ---
[facility] HISTORY AND PHYSICAL Date of Service: Aug 26, 2024 Time of Service: 15:10 HISTORY OF PRESENT ILLNESS: [ ] This is a 73-year-old female presents in ED acute dehydration was instructed to come in by her GI: Dr Meneses the patient is scheduled for a colonoscopy in a.m.. Patient has history of symptomatic dehydration post bowel prep. She will be admitted for observation. Patient has a history nephrostomy tube. Secondary to kidney stones. Patient is seen in ED 16 patient is fully awake alert oriented x3. patient will be started on bowel prep ER nurse we will call Dr. Meneses for orders. REVIEW OF SYSTEMS CONSTITUTIONAL: Denies fevers, chills, or night sweats. No unintentional weight loss reported. NEUROLOGICAL: Denies headache, amaurosis fugax, motor weakness, sensory deficit, vertigo/spinning sensation, gait abnormalities, or tremors. ENT: No hearing loss, otalgia, otorrhea, rhinitis, rhinorrhea, hoarseness, or sore throat. CARDIOVASCULAR: Denies any exertional angina, dyspnea on exertion, orthopnea, paroxysmal nocturnal dyspnea, palpitations, life-threatening arrhythmias, claudication. PULMONARY: Denies any shortness of breath, cough, phlegm/sputum, hemoptysis, pleuritic chest pain. SLEEP: Denies morning headaches, daytime somnolence or napping. Denies difficulty falling asleep, staying asleep, waking from sleep. Denies knowledge of snoring. GASTROINTESTINAL: Denies any type of dysphagia to either liquids or solids. Denies nausea, vomiting, pyrosis, early satiety, abdominal pain, diarrhea, constipation, or changes in stool consistency or caliber. Denies coffee-ground emesis, hematemesis, hematochezia, or melanotic stools. right sided nephrostomy tube GENITOURINARY: Denies frequency, urgency, nocturia, hematuria or incontinence (Storage/Irritative symptoms.) Low urinary stream, straining to void, urinary intermittency or hesitancy, splitting of the voiding stream, terminal dribbling. ENDOCRINOLOGIC: Denies polyuria, polydipsia, polyphagia or heat/cold intolerances. HEMATOLOGIC: Denies thrombophilia/previous clots, or coagulopathy/bleeding disorders. ONCOLOGIC: Denies personal history of malignancy. DERMATOLOGIC: Denies rashes or pruritus. PSYCHIATRIC: Denies any suicidal or homicidal ideation. Denies hallucinations. PAST MEDICAL HISTORY: [ ] Flores cancer kidney stone nephrostomy tube placed 2021 PAST SURGICAL HISTORY: [ ] Nephrostomy tube colostomy creation right upper quad 1999 11 PAST SOCIAL HISTORY: [ ] Denies smoking tobacco products and alcohol use FAMILY HISTORY: [ ] Noncontributory Coded Allergies: ceftriaxone (Verified Allergy, Mild, 06/14/24) HIVES PHYSICAL EXAM GENERAL APPEARANCE: The patient is awake, alert, and oriented, in no acute cardiopulmonary distress. NEUROLOGICAL: Cranial nerves II-XII grossly intact. Motor is 5/5 in bilateral upper and lower extremities proximal to distal. No sensory deficits. HEENT: Face is symmetric. Pupils are equal and reactive. Extraocular movements are intact. NECK: Supple. No JVD. No thyromegaly. No submental, submandibular, pre- /postauricular, occipital or supraclavicular lymphadenopathy. CHEST: Normal chest expansion. No Telemetry. LUNGS: Absence of any rales, rhonchi or any wheezing. CARDIOVASCULAR: Regular. S1 and S2 normal. No appreciable rubs, murmurs or gallops. ABDOMEN: Soft, nontender, and nondistended. There is no rebound, voluntary guarding, or rigidity. : Deferred. No Osorio. colostomy site EXTREMITIES: Non-edematous and not cyanotic. No clubbing. Good capillary refill. SKIN: No skin breakdown. Vital Sign (Last 24 Hours) 08/26/24 14:04 Temp 97.9 Pulse 73 Resp 18 B/P (MAP) 129/56 Pulse Ox 100 O2 Delivery Room Air* O2 Flow Rate 0 FiO2 21 LABS: Laboratory: Test 08/26/24 13:55 Range/Units White Blood Count 8.8 4.8-10.8 K/uL Red Blood Count 4.19 4.00-5.50 MIL/uL Hemoglobin 12.9 12.0-16.0 g/dL Hematocrit 39.2 36-48 % Mean Corpuscular Volume 93.6 79-99 fL Mean Corpuscular Hemoglobin 30.8 27.0-33.0 pg Mean Corpuscular Hemoglobin Concent 32.9 32.0-36.0 g/dL Red Cell Distribution Width 12.9 11.0-15.5 % Platelet Count 215 130-400 K/uL Mean Platelet Volume 8.9 7.5-10.5 fL Immature Granulocyte % (Auto) 0.2 0-1 % Neutrophils (%) (Auto) 64.2 40.0-77.0 % Lymphocytes (%) (Auto) 25.5 21.0-51.0 % Monocytes (%) (Auto) 8.3 3.0-13.0 % Eosinophils (%) (Auto) 1.7 0.0-8.0 % Basophils (%) (Auto) 0.1 0.0-5.0 % Neutrophils # (Auto) 5.6 1.8-7.7 K/uL Lymphocytes # (Auto) 2.2 1.0-4.8 K/uL Monocytes # (Auto) 0.7 0.1-1.0 K/uL Eosinophils # (Auto) 0.15 0.00-0.70 K/uL Basophils # (Auto) 0.01 0.00-0.20 K/uL Absolute Immature Granulocyte (auto 0.02 0-1 K/uL Nucleated Red Blood Cells 0.0 0.0-0.19 % Sodium Level 137 136-145 mmol/L Potassium Level 4.3 3.5-5.1 mmol/L Chloride Level 103 101-111 mmol/L Carbon Dioxide Level 28 21-32 mmol/L Blood Urea Nitrogen 22 H 7-18 mg/dL Creatinine 1.7 H 0.5-1.0 mg/dL Glomerular Filtration Rate Calc 31 >90 mL/min Random Glucose 101 70-105 mg/dL Total Calcium 9.4 8.5-10.1 mg/dL Total Creatine Kinase 51 # 21-232 U/L DIAGNOSTICS / RADIOLOGY: [ ] ASSESSMENT: Acute dehydration POA ROBBIN ATN POA Failure to thrive POA chronic problems: Kidney stone status post nephrostomy tube colon cancer PLAN: [ ] Admit to surgical floor Observation status Consult GI: Dr Meneses Scheduled for a colonoscopy in a.m. IV fluids LR at 75 mL/hour Replace electrolytes as needed per protocol NPO after midnight Polyp prep GoLYTELY labs: cmp , mag and cbc Pain medication PRN: MEDICATIONS Tylenol 650 mg po every 4 hrs for fever zofran 4 mg IV every 6 hrs for n/v Hydralazine 5 mg IV every 4 hrs systolic pressure > 160 Supportive measures: DVT ppx, GI ppx all questions answered time spent: > 35 min Supervising MD: Dr. Jerome c/d [facility] 1. Which of the following were discussed? Hospice Care - Yes / No Therapeutic options - Yes / No Advance Directives - Yes / No Other discussions - 2. Discussed with who? patient 3. Voluntary nature of this service was explained to the patient? Yes / No 4. Amount of time spent - 25 min 5. Reviewed by Physician? (if this service was performed by NPP) Yes / No ATTESTATION BY PHYSICIAN I have seen and examined the patient. I reviewed the documentation, medical decision making, and treatment plan as noted by the mid-level provider above. I agree with the findings and plan of care. KWAME JEROME MD, ELIZABETH SAFETY PERSON Aug 26, 2024 15:12
[2024-08-26] MEDS ORDERED: ondanSETRON 4MG INJ IVP PRN (15:30)
[2024-08-26] MEDS ORDERED: acetaMINOPHEN 325 MG TAB PO PRN (15:30)
[2024-08-26] MEDS: LACTATED RINGERS 1000ML 1,000 ML IV SCH (15:39)
[2024-08-26] MEDS ORDERED: PoTASSium chloRIDE 20MEQ/100ML 100 ML IV PRN (16:00)
[2024-08-26] MEDS ORDERED: acetaMINOPHEN WITH coDEINE 1 TAB TAB PO PRN (16:00)
[2024-08-26] MEDS ORDERED: MAGNESIUM 2GM PREMIX 50ML 50 ML IV PRN (16:00)
--- NOTE | 2024-08-26 20:29 | NUR ---
REPORT GIVEN TO NURSE CONNELL
[2024-08-26] MEDS: FAMOTIDINE 20MG VIAL IV SCH (20:35)
[2024-08-26 20:40] VITALS: BP 141/72; PULSE 66; RESP 20; TEMP 98.3; O2SAT 97
--- NOTE | 2024-08-26 20:47 | NUR ---
DR. AVILES MADE AWARE OF GI CONSULT AT THIS TIME
--- NOTE | 2024-08-26 20:50 | NUR ---
SPOKE TO PATIENT FAMILY TO BRING HOME MEDICATION LIST IN THE AM, PATIENT VERBALIZED UNDERSTANDING
--- NOTE | 2024-08-26 20:55 | NUR ---
SPOKE TO DR. AVILES, ORDER GIVEN TO RESCHEDULE COLONOSCOPY FOR TUESDAY 08/28 @ 1230 PM. ORDER GIVEN FOR THE FOLLOWING MEDICAITON Addendum: 08/26/24 at 2326 by KO ANGEL RN RN PROTONIX 40MG PO DAILY, DULOXETINE 30MY GA DAILY SIMETHICONE CHEWABLE 125MG PO AFTER MEALS AND HS. START PATIENT ON CLEAR LIQUID DIET, CONSULT DR OGLESBY
[2024-08-27] VITALS: BP 142/80; PULSE 73; RESP 16; TEMP 98.4
[2024-08-27 03:55] VITALS: BP 154/74; PULSE 76; RESP 16; TEMP 98.5
[2024-08-27 05:22] LABS: BASOPHILS # (AUTO) 0.01 K/uL (0.00-0.20); BASOPHILS % (AUTO) 0.2 % (0.0-5.0); EOSINOPHILS # (AUTO) 0.18 K/uL (0.00-0.70); EOSINOPHILS % (AUTO) 3.2 % (0.0-8.0); HEMATOCRIT 34.9 % (36-48); IMMATURE GRANULOCYTE ABSOLUTE 0.02 K/uL (0-1); LYMPHOCYTES # (AUTO) 1.4 K/uL (1.0-4.8); LYMPHOCYTES % (AUTO) 25.2 % (21.0-51.0); MEAN CORPUSCULAR HGB CONC 33.2 g/dL (32.0-36.0); MEAN CORPUSCULAR VOLUME 93.3 fL (79-99); MONOCYTES # (AUTO) 0.7 K/uL (0.1-1.0); MONOCYTES % (AUTO) 12.9 % (3.0-13.0); NEUTROPHILS # (AUTO) 3.3 K/uL (1.8-7.7); NEUTROPHILS % (AUTO) 58.1 % (40.0-77.0); PLATELET COUNT (AUTO) 193 K/uL (130-400); RED BLOOD CELL COUNT(AUTO) 3.74 MIL/uL (4.00-5.50); RED CELL DISTRIBUTION WIDTH 12.8 % (11.0-15.5); WHITE BLOOD COUNT (AUTO) 5.6 K/uL (4.8-10.8)
[2024-08-27 05:45] LABS: ALBUMIN 3.2 g/dL (3.5-5.0); BILIRUBIN,TOTAL 0.8 mg/dL (0.2-1.0); CREATININE 1.5 mg/dL (0.5-1.0); MAGNESIUM 2.1 mg/dL (1.80-2.40); POTASSIUM 4.1 mmol/L (3.5-5.1); TOTAL PROTEIN, SERUM 7.6 g/dL (6.0-8.3)
[2024-08-27 08:00] VITALS: BP 139/80; PULSE 76; RESP 18; TEMP 97.9; O2SAT 97
[2024-08-27] MEDS: duloXETine HCL 30 MG CAP PO SCH (09:00)
[2024-08-27] MEDS: Vitamin B Complex/Vit C/Folic Acid PO SCH (09:00)
[2024-08-27] MEDS: PANTOPrazole 40 MG TAB DR PO SCH (09:00)
[2024-08-27] MEDS ORDERED: SODI650T PO (09:57)
[2024-08-27] MEDS: SIMETHICONE 80 MG TAB.CHEW PO SCH (09:58)
[2024-08-27] MEDS ORDERED: PHARMACY COMMUNICATION MISC SCH (11:30)
--- NOTE | 2024-08-27 11:34 | PN ---
[facility] PROGRESS NOTE Date of Service: Aug 27, 2024 Time of Service: 11:32 SUBJECTIVE: [73-year-old female admitted for symptomatic dehydration, patient is preparing for colonoscopy by Dr. Meneses. Patient now on clinic with diet. NPO after midnight. Patient will have bowel prep tonight, plans for colonoscopy tomorrow. Labs reviewed. We will continue to monitor electrolytes and replete as necessary. ] REVIEW OF SYSTEMS CONSTITUTIONAL: Denies fevers, chills, or night sweats. No unintentional weight loss reported. NEUROLOGICAL: Denies headache, amaurosis fugax, motor weakness, sensory deficit, vertigo/spinning sensation, gait abnormalities, or tremors. ENT: No hearing loss, otalgia, otorrhea, rhinitis, rhinorrhea, hoarseness, or sore throat. CARDIOVASCULAR: Denies any exertional angina, dyspnea on exertion, orthopnea, paroxysmal nocturnal dyspnea, palpitations, life-threatening arrhythmias, claudication. PULMONARY: Denies any shortness of breath, cough, phlegm/sputum, hemoptysis, pleuritic chest pain. SLEEP: Denies morning headaches, daytime somnolence or napping. Denies difficulty falling asleep, staying asleep, waking from sleep. Denies knowledge of snoring. GASTROINTESTINAL: Denies any type of dysphagia to either liquids or solids. Denies nausea, vomiting, pyrosis, early satiety, abdominal pain, diarrhea, con stipation, or changes in stool consistency or caliber. Denies coffee-ground emesis, hematemesis, hematochezia, or melanotic stools. right sided nephrostomy tube GENITOURINARY: Denies frequency, urgency, nocturia, hematuria or incontinence (Storage/Irritative symptoms.) Low urinary stream, straining to void, urinary intermittency or hesitancy, splitting of the voiding stream, terminal dribbling. ENDOCRINOLOGIC: Denies polyuria, polydipsia, polyphagia or heat/cold intolerances. HEMATOLOGIC: Denies thrombophilia/previous clots, or coagulopathy/bleeding disorders. ONCOLOGIC: Denies personal history of malignancy. DERMATOLOGIC: Denies rashes or pruritus. PSYCHIATRIC: Denies any suicidal or homicidal ideation. Denies hallucinations. PHYSICAL EXAM GENERAL APPEARANCE: The patient is awake, alert, and oriented, in no acute cardiopulmonary distress. NEUROLOGICAL: Cranial nerves II-XII grossly intact. Motor is 5/5 in bilateral upper and lower extremities proximal to distal. No sensory deficits. HEENT: Face is symmetric. Pupils are equal and reactive. Extraocular movements are intact. NECK: Supple. No JVD. No thyromegaly. No submental, submandibular, pre- /postauricular, occipital or supraclavicular lymphadenopathy. CHEST: Normal chest expansion. No Telemetry. LUNGS: Absence of any rales, rhonchi or any wheezing. CARDIOVASCULAR: Regular. S1 and S2 normal. No appreciable rubs, murmurs or gallops. ABDOMEN: Soft, nontender, and nondistended. There is no rebound, voluntary guarding, or rigidity. : Deferred. No Osorio. colostomy site EXTREMITIES: Non-edematous and not cyanotic. No clubbing. Good capillary refill. SKIN: No skin breakdown. Vital Signs (last 8hr) Date Time Temp Pulse Resp B/P (MAP) Pulse Ox O2 Delivery O2 Flow Rate FiO2 08/27/24 08:00 97.9 76 18 139/80 98 Room Air 08/27/24 03:55 98.4 76 16 154/74 98 Room Air LABS: Laboratory: Test 08/27/24 05:00 08/26/24 13:55 Range/Units White Blood Count 5.6 # 4.8-10.8 K/uL Red Blood Count 3.74 L 4.00-5.50 MIL/uL Hemoglobin 11.6 L 12.0-16.0 g/dL Hematocrit 34.9 L 36-48 % Mean Corpuscular Volume 93.3 79-99 fL Mean Corpuscular Hemoglobin 31.0 27.0-33.0 pg Mean Corpuscular Hemoglobin Concent 33.2 32.0-36.0 g/dL Red Cell Distribution Width 12.8 11.0-15.5 % Platelet Count 193 130-400 K/uL Mean Platelet Volume 8.9 7.5-10.5 fL Immature Granulocyte % (Auto) 0.4 0-1 % Neutrophils (%) (Auto) 58.1 40.0-77.0 % Lymphocytes (%) (Auto) 25.2 21.0-51.0 % Monocytes (%) (Auto) 12.9 3.0-13.0 % Eosinophils (%) (Auto) 3.2 0.0-8.0 % Basophils (%) (Auto) 0.2 0.0-5.0 % Neutrophils # (Auto) 3.3 1.8-7.7 K/uL Lymphocytes # (Auto) 1.4 1.0-4.8 K/uL Monocytes # (Auto) 0.7 0.1-1.0 K/uL Eosinophils # (Auto) 0.18 0.00-0.70 K/uL Basophils # (Auto) 0.01 0.00-0.20 K/uL Absolute Immature Granulocyte (auto 0.02 0-1 K/uL Nucleated Red Blood Cells 0.0 0.0-0.19 % Sodium Level 139 136-145 mmol/L Potassium Level 4.1 3.5-5.1 mmol/L Chloride Level 107 101-111 mmol/L Carbon Dioxide Level 25 21-32 mmol/L Blood Urea Nitrogen 17 7-18 mg/dL Creatinine 1.5 H 0.5-1.0 mg/dL Glomerular Filtration Rate Calc 36 >90 mL/min Random Glucose 92 70-105 mg/dL Total Calcium 9.1 8.5-10.1 mg/dL Magnesium Level 2.10 1.80-2.40 mg/dL Total Bilirubin 0.8 0.2-1.0 mg/dL Aspartate Amino Transf (AST/SGOT) 16 10-37 U/L Alanine Aminotransferase (ALT/SGPT) 10 L 12-78 U/L Alkaline Phosphatase 90 50-136 U/L Total Protein 7.6 6.0-8.3 g/dL Albumin 3.2 L 3.5-5.0 g/dL Total Creatine Kinase 51 # 21-232 U/L Current Medications Medications (Trade) Dose Ordered Sig/Rey Route PRN Reason Start Time Stop Time Status Last Admin Dose Admin Acetaminophen (TYLenol 325MG TAB) 650 mg Q4H PRN PO TEMPERATURE GREATER THAN 101.5 08/26/24 15:30 09/25/24 15:29 Acetaminophen/ Codeine Phosphate (TYLenol-coDEINE TAB) 1 tab Q4H PRN PO MODERATE PAIN (4-6) 08/26/24 16:00 09/25/24 15:59 Duloxetine HCl (CymbALTA 30 mg CAP) 30 mg DAILY PO 08/27/24 09:00 09/26/24 08:59 Famotidine (Pepcid 20mg Vial) 20 mg BID IV 08/26/24 21:00 08/26/24 23:04 DC 08/26/24 20:35 20 MG Lactated Ringer's 1,000 ml @ 75 mls/hr [id number] IV 08/26/24 15:30 09/25/24 15:29 08/26/24 15:39 75 MLS/HR Magnesium Sulfate 50 ml @ 0 mls/hr PROTOCOL PRN IV low mag level 08/26/24 16:00 09/25/24 15:59 Ondansetron HCl (zoFRAN 4MG INJ) 4 mg Q6H PRN IVP NAUSEA/VOMITING 08/26/24 15:30 09/25/24 15:29 Pantoprazole Sodium (PROTonix 40MG TAB) 40 mg DAILY PO 08/27/24 09:00 09/26/24 08:59 Pharmacy Profile Note (Pharmacy Communication) 1 each AD MISC 08/27/24 11:30 08/27/24 11:07 DC Potassium Chloride 100 ml @ 50 mls/hr AD PRN IV POTASSIUM PROTOCOL 08/26/24 16:00 09/25/24 15:59 Simethicone (Mylicon) 125 mg PCHS PO 08/27/24 09:00 09/26/24 08:59 08/27/24 09:58 125 MG Vitamin B Complex/ Vit C/Folic Acid (Nephrovite Tablet) 1 cap DAILY PO 08/27/24 09:00 09/26/24 08:59 DIAGNOSTICS / RADIOLOGY: [ ] ASSESSMENT: Acute dehydration POA ROBBIN ATN POA Failure to thrive POA chronic problems: Kidney stone status post nephrostomy tube colon cancer PLAN: [ ] Admit to surgical floor Observation status Consult GI: Dr Meneses Scheduled for a colonoscopy in a.m. Nephrology consultation IV fluids LR at 75 mL/hour Replace electrolytes as needed per protocol NPO after midnight Polyp prep GoLYTELY labs: cmp , mag and cbc Pain medication PRN: MEDICATIONS Tylenol 650 mg po every 4 hrs for fever zofran 4 mg IV every 6 hrs for n/v Hydralazine 5 mg IV every 4 hrs systolic pressure > 160 Supportive measures: DVT ppx, GI ppx all questions answered time spent: > 35 min Supervising MD: Dr. Jerome c/d ATTESTATION BY PHYSICIAN I have seen and examined the patient. I reviewed the documentation, medical decision making, and treatment plan as noted by the mid-level provider above. I agree with the findings and plan of care. KWAME JEROME MD, JANICE B [facility] Aug 27, 2024 11:34
[2024-08-27] MEDS: BisaCODYL 5 MG TABLET.DR PO ONE (11:57)
[2024-08-27] MEDS: LACTULOSE 20 GM/30 ML UDCUP PO ONE ×3 (11:58→15:42)
[2024-08-27 12:00] VITALS: BP 141/83; PULSE 78; RESP 20; TEMP 98.2
--- NOTE | 2024-08-27 15:11 | NUR ---
Nutrition consult per PCM eval Reviewed labs, notes, and medications. Pt with hx of nephrostomy tube, was on bowel prep 08/26/24, pending colonoscopy 08/28/24, on CLD, IV fluids, elevated Cr 1.5, low ALT 10 per chart review. Wt via standing scale, last BM 08/26/24, no edema, well nourished, no wounds, excellent nutrition per nursing. Recommendations: -Advance diet when medically feasible to neutropenic diet + regular diet -Provide ensure clear TID while PT on CLD -Monitor PO intake -Encourage PO intake as able -Monitor BM -If no BM >3 days consider stool softener -Monitor electrolytes -Replenish electrolytes per protocol -Monitor wts -Reweigh as able -Order Vit D, vit b-12 labs to rule out deficiencies -Provide vit. B complex QD -Recommend Pt to follow up with PCP -Monitor goals of care RD to follow + available for consult per protocol Addendum: 08/27/24 at [address] Amended: Links added.
[2024-08-27 16:00] VITALS: BP 136/78; PULSE 74; RESP 18; TEMP 98
[2024-08-27] MEDS: PEG 3350/NA SULF,BICARB,CL/KCL 4000 ML SOLN PO ONE (16:02)
--- NOTE | 2024-08-27 18:46 | NUR ---
Discharge Planning: Pt. states she lives with her daughter Ronda Ayon. Contact number is . She sees PCP at [facility] in [place] and also uses the pharmacy there. Pt. states she is independent with all ADL's. No home health, provider services, or DME. Pt. is on room air, no HD. DCP is for home. Addendum: 08/27/24 at 1850 by CURTIS COLLINS RN CM Amended: Links added.
--- NOTE | 2024-08-27 19:53 | CONS ---
REASON FOR CONSULTATION: Renal failure. HISTORY OF PRESENT ILLNESS: This patient has multiple medical problems. The patient has history of rectal carcinoma and colostomy, history of hydronephrosis, nephrostomy placement, ureteral stent placement in a patient who has renal failure. The patient has underlying history of diverticulitis now. The patient is planned for colonoscopy. The patient has electrolyte problems and anemia reported. The patient has history of small-bowel obstruction. PAST MEDICAL HISTORY: As above with diverticulitis, hypertension, UTI, hydronephrosis, depression, rectal carcinoma, previous chemotherapy, radiation hydronephrosis. PAST SURGICAL HISTORY: Colon resection, colostomy creation, ureteral stent placement on left side, nephrostomy tube placement. SOCIAL HISTORY: No smoking, alcohol or drug abuse. FAMILY HISTORY: Noncontributory. REVIEW OF SYSTEMS: CONSTITUTIONAL: Has been weak. No fever, chills or rigors. HEENT: With no headache, oral ulcers, sore throat or difficulty swallowing. No new vision complaint. RESPIRATORY: With no cough, expectoration, hemoptysis, or pleuritic pain. CARDIOVASCULAR: Has shortness of breath. No orthopnea or PND. GASTROINTESTINAL: Negative for nausea, vomiting or diarrhea reported. Some abdominal pain. GENITOURINARY: History of hydronephrosis, nephrostomy and ureteral stent. GENITOURINARY: Negative for dysuria or hematuria. DERMATOLOGICAL: No rashes or pruritus. NEUROLOGIC: No seizure or syncope. ENDOCRINE: No polyuria, polydipsia or polyphagia. PSYCHIATRIC: Negative for anxiety or depression. PHYSICAL EXAMINATION: GENERAL: Pale, no other distress. VITAL SIGNS: Blood pressure is 129/56, pulse 73, respiratory rate 18, afebrile. HEENT: Head is atraumatic, normocephalic. Pupils are round and reactive. Sclerae anicteric. Conjunctivae not pale. Oral mucosa is not dry. NECK: Without masses or bruits. Thyroid is palpable. Neck has no bruits. CHEST: Shows equal to thoracic percussion note being resonant in all areas. CARDIAC: Regular rhythm. No rub. No S3 or S4. No parasternal heave. ABDOMEN: No guarding or tenderness. Bowel sounds are normoactive. No free fluid. LABORATORY DATA: Labs have been reviewed and patient has elevated BUN and creatinine. GFR is 31, creatinine is 1.7. Sodium 137. The patient has old records reviewed. Imaging studies are reviewed. Previous tests are reviewed. Labs and x-rays were personally reviewed. PROBLEMS: * Acute on chronic renal failure in a patient who has underlying rectal cancer. * Hydronephrosis. * Ureteral stent before. * Nephrostomy tube placement. * Mild anemia. * The patient has multiple other comorbidities. PLAN: * Planned for colonoscopy. * Plan at this time is to maintain hydration. * The patient is being considered for colonoscopy. * Avoid nonsteroidal drugs. * Avoid contrast agent as far as possible. * Urinalysis. * Nephro-Telly 1 daily. * Follow up labs, CBC, CMP ordered. Phos, mag, uric acid ordered. * Old records and external records reviewed. * We have discussed with other team physicians. The patient will have DVT and GI prophylaxis and colonoscopy is planned. Overall condition remained critical and guarded. I have discussed with other team physicians in detail. Thank you for this patient. TID: [id number] RECEIPT: [id number]
[2024-08-27 20:00] VITALS: BP 147/65; PULSE 69; RESP 18; TEMP 97.9; O2SAT 97
[2024-08-28] VITALS (15 sets, daily range): BP systolic 110–143; BP diastolic 56–84; PULSE 64–99; RESP 15–19; TEMP 96.9–98.8; O2SAT 98
[2024-08-28 05:56] LABS: BASOPHILS # (AUTO) 0.01 K/uL (0.00-0.20); BASOPHILS % (AUTO) 0.2 % (0.0-5.0); EOSINOPHILS % (AUTO) 3.3 % (0.0-8.0); IMMATURE GRANULOCYTE ABSOLUTE 0.01 K/uL (0-1); LYMPHOCYTES # (AUTO) 1.6 K/uL (1.0-4.8); LYMPHOCYTES % (AUTO) 27.2 % (21.0-51.0); MEAN CORPUSCULAR HEMOGLOBIN 31.1 pg (27.0-33.0); MEAN CORPUSCULAR HGB CONC 33.4 g/dL (32.0-36.0); MEAN CORPUSCULAR VOLUME 92.9 fL (79-99); MONOCYTES # (AUTO) 0.7 K/uL (0.1-1.0); MONOCYTES % (AUTO) 12.3 % (3.0-13.0); NEUTROPHILS # (AUTO) 3.4 K/uL (1.8-7.7); NEUTROPHILS % (AUTO) 56.8 % (40.0-77.0); PLATELET COUNT (AUTO) 199 K/uL (130-400); RED BLOOD CELL COUNT(AUTO) 4.09 MIL/uL (4.00-5.50); RED CELL DISTRIBUTION WIDTH 12.5 % (11.0-15.5)
[2024-08-28 06:07] LABS: CREATININE 1.6 mg/dL (0.5-1.0); POTASSIUM 4.3 mmol/L (3.5-5.1); URIC ACID 5.8 mg/dL (2.6-7.2)
--- NOTE | 2024-08-28 13:13 | PN ---
[facility] PROGRESS NOTE Date of Service: Aug 28, 2024 Time of Service: 13:12 SUBJECTIVE: [73-year-old female admitted for symptomatic dehydration, patient is preparing for colonoscopy by Dr. Meneses. Patient is scheduled for colonoscopy this afternoon. We will follow recommendations from supervisor electric. Patient was evaluated in the room, no acute events reported overnight. Labs reviewed. REVIEW OF SYSTEMS CONSTITUTIONAL: Denies fevers, chills, or night sweats. No unintentional weight loss reported. NEUROLOGICAL: Denies headache, amaurosis fugax, motor weakness, sensory deficit, vertigo/spinning sensation, gait abnormalities, or tremors. ENT: No hearing loss, otalgia, otorrhea, rhinitis, rhinorrhea, hoarseness, or sore throat. CARDIOVASCULAR: Denies any exertional angina, dyspnea on exertion, orthopnea, paroxysmal nocturnal dyspnea, palpitations, life-threatening arrhythmias, claudication. PULMONARY: Denies any shortness of breath, cough, phlegm/sputum, hemoptysis, pleuritic chest pain. SLEEP: Denies morning headaches, daytime somnolence or napping. Denies difficulty falling asleep, staying asleep, waking from sleep. Denies knowledge of snoring. GASTROINTESTINAL: Denies any type of dysphagia to either liquids or solids. Denies nausea, vomiting, pyrosis, early satiety, abdominal pain, diarrhea, constipation, or changes in stool consistency or caliber. Denies coffee-ground emesis, hematemesis, hematochezia, or melanotic stools. right sided nephrostomy tube GENITOURINARY: Denies frequency, urgency, nocturia, hematuria or incontinence ( Storage/Irritative symptoms.) Low urinary stream, straining to void, urinary intermittency or hesitancy, splitting of the voiding stream, terminal dribbling. ENDOCRINOLOGIC: Denies polyuria, polydipsia, polyphagia or heat/cold intolerances. HEMATOLOGIC: Denies thrombophilia/previous clots, or coagulopathy/bleeding disorders. ONCOLOGIC: Denies personal history of malignancy. DERMATOLOGIC: Denies rashes or pruritus. PSYCHIATRIC: Denies any suicidal or homicidal ideation. Denies hallucinations. PHYSICAL EXAM GENERAL APPEARANCE: The patient is awake, alert, and oriented, in no acute cardiopulmonary distress. NEUROLOGICAL: Cranial nerves II-XII grossly intact. Motor is 5/5 in bilateral upper and lower extremities proximal to distal. No sensory deficits. HEENT: Face is symmetric. Pupils are equal and reactive. Extraocular movements are intact. NECK: Supple. No JVD. No thyromegaly. No submental, submandibular, pre- /postauricular, occipital or supraclavicular lymphadenopathy. CHEST: Normal chest expansion. No Telemetry. LUNGS: Absence of any rales, rhonchi or any wheezing. CARDIOVASCULAR: Regular. S1 and S2 normal. No appreciable rubs, murmurs or gallops. ABDOMEN: Soft, nontender, and nondistended. There is no rebound, voluntary guarding, or rigidity. : Deferred. No Osorio. colostomy site EXTREMITIES: Non-edematous and not cyanotic. No clubbing. Good capillary refill. SKIN: No skin breakdown. Vital Signs (last 8hr) Date Time Temp Pulse Resp B/P (MAP) Pulse Ox O2 Delivery O2 Flow Rate FiO2 08/28/24 12:00 98.4 77 18 127/74 95 Room Air 08/28/24 08:00 98.8 71 19 117/62 98 Room Air 08/28/24 08:00 98 Room Air* 0 21 LABS: Laboratory: Test 08/28/24 05:34 08/27/24 11:25 08/27/24 05:00 08/26/24 13:55 Range/Units White Blood Count 6.0 4.8-10.8 K/uL Red Blood Count 4.09 4.00-5.50 MIL/uL Hemoglobin 12.7 12.0-16.0 g/dL Hematocrit 38.0 36-48 % Mean Corpuscular Volume 92.9 79-99 fL Mean Corpuscular Hemoglobin 31.1 27.0-33.0 pg Mean Corpuscular Hemoglobin Concent 33.4 32.0-36.0 g/dL Red Cell Distribution Width 12.5 11.0-15.5 % Platelet Count 199 130-400 K/uL Mean Platelet Volume 8.9 7.5-10.5 fL Immature Granulocyte % (Auto) 0.2 0-1 % Neutrophils (%) (Auto) 56.8 40.0-77.0 % Lymphocytes (%) (Auto) 27.2 21.0-51.0 % Monocytes (%) (Auto) 12.3 3.0-13.0 % Eosinophils (%) (Auto) 3.3 0.0-8.0 % Basophils (%) (Auto) 0.2 0.0-5.0 % Neutrophils # (Auto) 3.4 1.8-7.7 K/uL Lymphocytes # (Auto) 1.6 1.0-4.8 K/uL Monocytes # (Auto) 0.7 0.1-1.0 K/uL Eosinophils # (Auto) 0.20 0.00-0.70 K/uL Basophils # (Auto) 0.01 0.00-0.20 K/uL Absolute Immature Granulocyte (auto 0.01 0-1 K/uL Nucleated Red Blood Cells 0.0 0.0-0.19 % Sodium Level 139 136-145 mmol/L Potassium Level 4.3 3.5-5.1 mmol/L Chloride Level 103 101-111 mmol/L Carbon Dioxide Level 29 21-32 mmol/L Blood Urea Nitrogen 12 7-18 mg/dL Creatinine 1.6 H 0.5-1.0 mg/dL Glomerular Filtration Rate Calc 34 >90 mL/min Random Glucose 104 70-105 mg/dL Uric Acid 5.8 2.6-7.2 mg/dL Total Calcium 9.5 8.5-10.1 mg/dL Phosphorus Level 4.0 2.5-4.9 mg/dL Vitamin B12 Level 4466 H 193-986 pg/mL Vitamin D 25-Hydroxy 20.0 30.0-100.0 ng/mL Magnesium Level 2.10 1.80-2.40 mg/dL Total Bilirubin 0.8 0.2-1.0 mg/dL Aspartate Amino Transf (AST/SGOT) 16 10-37 U/L Alanine Aminotransferase (ALT/SGPT) 10 L 12-78 U/L Alkaline Phosphatase 90 50-136 U/L Total Protein 7.6 6.0-8.3 g/dL Albumin 3.2 L 3.5-5.0 g/dL Total Creatine Kinase 51 # 21-232 U/L Current Medications Medications (Trade) Dose Ordered Sig/Rey Route PRN Reason Start Time Stop Time Status Last Admin Dose Admin Acetaminophen (TYLenol 325MG TAB) 650 mg Q4H PRN PO TEMPERATURE GREATER THAN 101.5 08/26/24 15:30 09/25/24 15:29 Acetaminophen/ Codeine Phosphate (TYLenol-coDEINE TAB) 1 tab Q4H PRN PO MODERATE PAIN (4-6) 08/26/24 16:00 09/25/24 15:59 Duloxetine HCl (CymbALTA 30 mg CAP) 30 mg DAILY PO 08/27/24 09:00 09/26/24 08:59 Famotidine (Pepcid 20mg Vial) 20 mg BID IV 08/26/24 21:00 08/26/24 23:04 DC 08/26/24 20:35 20 MG Lactated Ringer's 1,000 ml @ 75 mls/hr [id number] IV 08/26/24 15:30 09/25/24 15:29 08/27/24 18:02 75 MLS/HR Magnesium Sulfate 50 ml @ 0 mls/hr PROTOCOL PRN IV low mag level 08/26/24 16:00 09/25/24 15:59 Ondansetron HCl (zoFRAN 4MG INJ) 4 mg Q6H PRN IVP NAUSEA/VOMITING 08/26/24 15:30 09/25/24 15:29 Pantoprazole Sodium (PROTonix 40MG TAB) 40 mg DAILY PO 08/27/24 09:00 09/26/24 08:59 Pharmacy Profile Note (Pharmacy Communication) 1 each AD MISC 08/27/24 11:30 08/27/24 11:07 DC Potassium Chloride 100 ml @ 50 mls/hr AD PRN IV POTASSIUM PROTOCOL 08/26/24 16:00 09/25/24 15:59 Simethicone (Mylicon) 125 mg PCHS PO 08/27/24 09:00 09/26/24 08:59 08/27/24 21:36 125 MG Vitamin B Complex/ Vit C/Folic Acid (Nephrovite Tablet) 1 cap DAILY PO 08/27/24 09:00 09/26/24 08:59 DIAGNOSTICS / RADIOLOGY: [ ] ASSESSMENT: Acute dehydration POA ROBBIN ATN POA Failure to thrive POA chronic problems: Kidney stone status post nephrostomy tube colon cancer PLAN: [ ] Admit to surgical floor Observation status Consult GI: Dr Meneses Scheduled for a colonoscopy in a.m. Nephrology consultation Continue IV fluids LR at 75 mL/hour Replace electrolytes as needed per protocol NPO after midnight Polyp prep GoLYTELY labs: cmp , mag and cbc Pain medication PRN: MEDICATIONS Tylenol 650 mg po every 4 hrs for fever zofran 4 mg IV every 6 hrs for n/v Hydralazine 5 mg IV every 4 hrs systolic pressure > 160 Supportive measures: DVT ppx, GI ppx all questions answered time spent: > 35 min Supervising MD: Dr. Jerome c/d ATTESTATION BY PHYSICIAN I have seen and examined the patient. I reviewed the documentation, medical decision making, and treatment plan as noted by the mid-level provider above. I agree with the findings and plan of care. KWAME JEROME MD, [facility] Aug 28, 2024 13:13
[2024-08-28] MEDS ORDERED: LIDOCAINE PF 100MG/5ML (2%) SYRINGE 5ML ONE (13:58)
[2024-08-28] MEDS ORDERED: proPOFol 10 MG/ML 20ML VIAL IV ONE (13:58)
--- NOTE | 2024-08-28 15:08 | PN ---
NEPHROLOGY PROGRESS NOTE Date/Time Patient Seen: Aug 28, 2024 SUBJECTIVE: This is a 73-year-old female with a past medical history of metastatic rectal carcinoma, diverticulosis, history of colostomy, ESBL UTI hypertension, UTI, depression, and bilateral hydroureteronephrosis with bilateral nephrostomy tube placement, and hypertension. Patient presented to the emergency room with complaints of dehydration She has a history of symptomatic dehydration post bowel prep. She was scheduled for colonoscopy with Dr. Meneses. She was admitted further evaluation and management of dehydration. She was noted to have elevated BUN/creatinine We are consulted for renal failure. Her renal function has remained stable Electrolytes are stable. Scheduled for colonoscopy today, however she had poor prep, Repeat colonoscopy tomorrow as per Dr. Meneses She was seen in the GI lab, in no acute distress No family at the bedside Prognosis remains guarded REVIEW OF SYSTEMS: GENERAL: Positive for generalized weakness NEUROLOGIC: Negative for any blurry vision, blind spots, double vision, facial asymmetry, dysphagia, dysarthria, hemiparesis, hemisensory deficits, vertigo, ataxia. HEENT: Negative for any head trauma, neck trauma, neck stiffness, photophobia, phonophobia, sinusitis, rhinitis. CARDIAC: Negative for any chest pain, dyspnea on exertion, paroxysmal nocturnal dyspnea, peripheral edema. PULMONARY: Negative for any shortness of breath, wheezing, COPD, or TB exposure. GASTROINTESTINAL: Negative for any abdominal pain, nausea, vomiting, bright red blood per rectum, melena. GENITOURINARY: Negative for any dysuria, hematuria, incontinence. INTEGUMENTARY: Negative for any rashes, cuts, insect bites. RHEUMATOLOGIC: Negative for any joint pains, photosensitive rashes, history of vasculitis or kidney problems. HEMATOLOGIC: Negative for any abnormal bruising, frequent infections or bleeding. Vital Signs (last 8hr) Date Time Temp Pulse Resp B/P (MAP) Pulse Ox O2 Delivery O2 Flow Rate FiO2 08/28/24 14:48 97.5 80 15 122/66 99 Room Air 08/28/24 14:43 82 16 118/64 99 Room Air 08/28/24 14:38 84 16 121/62 100 Room Air 08/28/24 14:33 82 16 123/64 100 Room Air 08/28/24 14:28 83 17 121/65 100 Nonrebreathing Mask 10.0 08/28/24 14:23 84 17 110/59 100 Nonrebreathing Mask 10.0 08/28/24 14:18 97.3 87 16 110/56 100 Nonrebreathing Mask 10.0 08/28/24 13:50 97.0 89 16 139/66 100 mask 10.0 08/28/24 13:50 Mask 08/28/24 13:50 Mask 10.0 08/28/24 12:00 98.4 77 18 127/74 95 Room Air 08/28/24 08:00 98.8 71 19 117/62 98 Room Air 08/28/24 08:00 98 Room Air* 0 21 PHYSICAL EXAM: GENERAL: Alert and oriented x 3. No acute distress. Well-nourished. EYES: EOMI. Anicteric. HENT: Moist mucous membranes. No scleral icterus. No cervical lymphadenopathy. LUNGS: Clear to auscultation bilaterally. No accessory muscle use. CARDIOVASCULAR: Regular rate and rhythm. No murmur. No JVD. ABDOMEN: Soft, non-tender and non-distended. No palpable masses. EXTREMITIES: No edema. Non-tender.?SKIN: No rashes or lesions. Warm. NEUROLOGIC: No focal neurological deficits. CN II-XII grossly intact, but not individually tested. PSYCHIATRIC: Cooperative. Appropriate mood and affect. Current Medications Medications (Trade) Dose Ordered Sig/Rey Route PRN Reason Start Time Stop Time Status Last Admin Dose Admin Acetaminophen (TYLenol 325MG TAB) 650 mg Q4H PRN PO TEMPERATURE GREATER THAN 101.5 08/26/24 15:30 09/25/24 15:29 Acetaminophen/ Codeine Phosphate (TYLenol-coDEINE TAB) 1 tab Q4H PRN PO MODERATE PAIN (4-6) 08/26/24 16:00 09/25/24 15:59 Duloxetine HCl (CymbALTA 30 mg CAP) 30 mg DAILY PO 08/27/24 09:00 09/26/24 08:59 Famotidine (Pepcid 20mg Vial) 20 mg BID IV 08/26/24 21:00 08/26/24 23:04 DC 08/26/24 20:35 20 MG Lactated Ringer's 1,000 ml @ 75 mls/hr [id number] IV 08/26/24 15:30 09/25/24 15:29 08/27/24 18:02 75 MLS/HR Magnesium Sulfate 50 ml @ 0 mls/hr PROTOCOL PRN IV low mag level 08/26/24 16:00 09/25/24 15:59 Ondansetron HCl (zoFRAN 4MG INJ) 4 mg Q6H PRN IVP NAUSEA/VOMITING 08/26/24 15:30 09/25/24 15:29 Pantoprazole Sodium (PROTonix 40MG TAB) 40 mg DAILY PO 08/27/24 09:00 09/26/24 08:59 Pharmacy Profile Note (Pharmacy Communication) 1 each AD MISC 08/27/24 11:30 08/27/24 11:07 DC Potassium Chloride 100 ml @ 50 mls/hr AD PRN IV POTASSIUM PROTOCOL 08/26/24 16:00 09/25/24 15:59 Simethicone (Mylicon) 125 mg PCHS PO 08/27/24 09:00 09/26/24 08:59 08/27/24 21:36 125 MG Vitamin B Complex/ Vit C/Folic Acid (Nephrovite Tablet) 1 cap DAILY PO 08/27/24 09:00 09/26/24 08:59 LABORATORY: [ ] Hematology Labs: Test 08/28/24 05:34 Range/Units White Blood Count 6.0 4.8-10.8 K/uL Red Blood Count 4.09 4.00-5.50 MIL/uL Hemoglobin 12.7 12.0-16.0 g/dL Hematocrit 38.0 36-48 % Mean Corpuscular Volume 92.9 79-99 fL Mean Corpuscular Hemoglobin 31.1 27.0-33.0 pg Mean Corpuscular Hemoglobin Concent 33.4 32.0-36.0 g/dL Red Cell Distribution Width 12.5 11.0-15.5 % Platelet Count 199 130-400 K/uL Mean Platelet Volume 8.9 7.5-10.5 fL Immature Granulocyte % (Auto) 0.2 0-1 % Neutrophils (%) (Auto) 56.8 40.0-77.0 % Lymphocytes (%) (Auto) 27.2 21.0-51.0 % Monocytes (%) (Auto) 12.3 3.0-13.0 % Eosinophils (%) (Auto) 3.3 0.0-8.0 % Basophils (%) (Auto) 0.2 0.0-5.0 % Neutrophils # (Auto) 3.4 1.8-7.7 K/uL Lymphocytes # (Auto) 1.6 1.0-4.8 K/uL Monocytes # (Auto) 0.7 0.1-1.0 K/uL Eosinophils # (Auto) 0.20 0.00-0.70 K/uL Basophils # (Auto) 0.01 0.00-0.20 K/uL Absolute Immature Granulocyte (auto 0.01 0-1 K/uL Nucleated Red Blood Cells 0.0 0.0-0.19 % Chemistry Labs: Test 08/28/24 05:34 08/27/24 11:25 08/27/24 05:00 Range/Units Sodium Level 139 136-145 mmol/L Potassium Level 4.3 3.5-5.1 mmol/L Chloride Level 103 101-111 mmol/L Carbon Dioxide Level 29 21-32 mmol/L Blood Urea Nitrogen 12 7-18 mg/dL Creatinine 1.6 H 0.5-1.0 mg/dL Glomerular Filtration Rate Calc 34 >90 mL/min Random Glucose 104 70-105 mg/dL Uric Acid 5.8 2.6-7.2 mg/dL Total Calcium 9.5 8.5-10.1 mg/dL Phosphorus Level 4.0 2.5-4.9 mg/dL Vitamin B12 Level 4466 H 193-986 pg/mL Vitamin D 25-Hydroxy 20.0 30.0-100.0 ng/mL Magnesium Level 2.10 1.80-2.40 mg/dL Total Bilirubin 0.8 0.2-1.0 mg/dL Aspartate Amino Transf (AST/SGOT) 16 10-37 U/L Alanine Aminotransferase (ALT/SGPT) 10 L 12-78 U/L Alkaline Phosphatase 90 50-136 U/L Total Protein 7.6 6.0-8.3 g/dL Albumin 3.2 L 3.5-5.0 g/dL DIAGNOSTICS / RADIOLOGY: ASSESSMENT: Acute on chronic kidney failure Acute dehydration Failure to thrive Hypertension Right nephrostomy tube placement History of left ureteral stent placement History of complicated UTI with history of ESBL infection History of rectal carcinoma History of colostomy PLAN: Labs, diagnostic, radiologic exams reviewed and interpreted by myself and supervising physician. We have reviewed external records in detail From the renal standpoint, okay to proceed with repeat colonoscopy as per GI. Require close monitoring of renal function and electrolytes Order CBC, CMP, and electrolytes in am BiPAP as necessary, for respiratory distress Monitor blood pressure adjust medication doses as needed Avoid hypotensive episodes May use Dilaudid 0.5 mg IV every 6 hours as needed for severe pain Monitor blood sugars Strict intake, output, and daily weight should be monitored Please renally adjust medications Avoid nephrotoxic and nonsteroidal drugs Avoid contrast if possible Will continue to monitor renal function, anemia, electrolytes Treatment plan discussed with patient Questions were answered We have discussed with the other team physicians in detail about the care plan We will continue to monitor the patient closely ATTESTATION BY PHYSICIAN I have seen and examined the patient. I reviewed the documentation, medical decision making, and treatment plan as noted by the mid-level provider above. I agree with the findings and plan of care. MELISSA JENNINGS MD, [facility] Aug 28, 2024 15:08
[2024-08-28] MEDS: PEG 3350/NA SULF,BICARB,CL/KCL 4000 ML SOLN PO ONE (16:02)
[2024-08-28] MEDS: LACTULOSE 20 GM/30 ML UDCUP PO ONE ×2 (16:02→18:33)
[2024-08-28] MEDS: BisaCODYL 5 MG TABLET.DR PO ONE ×2 (16:02→20:50)
[2024-08-29] VITALS (16 sets, daily range): BP systolic 116–137; BP diastolic 58–84; PULSE 72–90; RESP 16–19; TEMP 97.6–98.8; O2SAT 98
[2024-08-29 06:19] LABS: HEMATOCRIT 38.2 % (36-48); MEAN CORPUSCULAR HEMOGLOBIN 31.4 pg (27.0-33.0); MEAN CORPUSCULAR HGB CONC 33.5 g/dL (32.0-36.0); MEAN CORPUSCULAR VOLUME 93.6 fL (79-99); RED BLOOD CELL COUNT(AUTO) 4.08 MIL/uL (4.00-5.50); RED CELL DISTRIBUTION WIDTH 12.5 % (11.0-15.5); WHITE BLOOD COUNT (AUTO) 7.2 K/uL (4.8-10.8)
[2024-08-29 06:27] LABS: CREATININE 1.7 mg/dL (0.5-1.0); PHOSPHORUS 4.7 mg/dL (2.5-4.9); POTASSIUM 4.4 mmol/L (3.5-5.1)
--- NOTE | 2024-08-29 09:07 | DS ---
Discharge Summary Hospital Course Summary: This is a 73-year-old female presents in ED acute dehydration was instructed to come in by her GI: Dr Meneses the patient is scheduled for a colonoscopy.. Patient has history of symptomatic dehydration post bowel prep. Patient was admitted for close monitoring and hydration due to acute kidney in [facility]. She was evaluated by subway car repairer for which kidney functions were monitored daily. We are awaiting for colonoscopy to be done today, once done and patient continued to be hemodynamically stable, and able to tolerate diet, patient can be discharged home today. Instructed patient to follow up with her PCP in 2-3 days. Patient to follow up with Dr. Meneses in one week. Continue with home medications. Straw Boss(s): Dr. Meneses- GI Procedure(s): 08/29/2024-colonoscopy by Dr. Meneses Assessment/Plan: Discharge Diagnoses: Acute dehydration POA ROBBIN ATN POA Failure to thrive POA chronic problems: Kidney stone status post nephrostomy tube colon cancer Admitting Diagnoses: Acute dehydration POA ROBBIN ATN POA Failure to thrive POA chronic problems: Kidney stone status post nephrostomy tube colon cancer Discharge Instructions: We will discharge this patient once colonoscopy is done today. Patient to follow up with Dr. Meneses in one week Follow up with her PCP in one week Patient to follow up with Dr. Alvarenga, subway car repairer regarding ROBBIN Home Medications: Reported Medications Sodium Bicarbonate (Sodium Bicarbonate) 650 Mg Tablet, 1 TAB PO BID for indigestion for 30 Days, #60 TAB 0 Refills 08/27/24 Levothyroxine Sodium (Levothyroxine Sodium) 25 Mcg Tablet, 25 MCG PO [id number], TAB 08/08/24 Folic Acid/Vit B Complex and C (Nephro Vitamins Tablet) 0.8 Mg Tablet, 0.8 MG PO DAILY, TAB 08/08/24 Pantoprazole Sodium (Pantoprazole Sodium) 40 Mg Granpkt.dr, 40 MG PO DAILY, PACK 03/11/24 Ferrous Sulfate (Ferosul) 325 Mg (65 Mg Iron) Tablet, 325 MG PO DAILY, TAB 03/11/24 Duloxetine HCl (Duloxetine HCl) 30 Mg Capsule.dr, 30 MG PO DAILY, CAP 03/11/24 Sodium Bicarbonate (Sodium Bicarbonate) 650 Mg Tablet, 650 MG PO TID, TAB 03/11/24 Time spent arranging discharge: 31-60 minutes ATTESTATION BY PHYSICIAN I have seen and examined the patient. I reviewed the documentation, medical decision making, and treatment plan as noted by the mid-level provider above. I agree with the findings and plan of care. KWAME JEROME MD, [facility] Aug 29, 2024 09:07
--- NOTE | 2024-08-29 09:10 | PN ---
[facility] PROGRESS NOTE Date of Service: Aug 29, 2024 Time of Service: 09:07 SUBJECTIVE: [73-year-old female admitted for symptomatic dehydration, patient is preparing for colonoscopy by Dr. Meneses. Patient is scheduled for colonoscopy today. She will continue with current management. Patient is still NPO. We will await for procedure and if continues to be stable, patient can be discharged today. REVIEW OF SYSTEMS CONSTITUTIONAL: Denies fevers, chills, or night sweats. No unintentional weight loss reported. NEUROLOGICAL: Denies headache, amaurosis fugax, motor weakness, sensory deficit, vertigo/spinning sensation, gait abnormalities, or tremors. ENT: No hearing loss, otalgia, otorrhea, rhinitis, rhinorrhea, hoarseness, or sore throat. CARDIOVASCULAR: Denies any exertional angina, dyspnea on exertion, orthopnea, paroxysmal nocturnal dyspnea, palpitations, life-threatening arrhythmias, claudication. PULMONARY: Denies any shortness of breath, cough, phlegm/sputum, hemoptysis, pleuritic chest pain. SLEEP: Denies morning headaches, daytime somnolence or napping. Denies difficulty falling asleep, staying asleep, waking from sleep. Denies knowledge of snoring. GASTROINTESTINAL: Denies any type of dysphagia to either liquids or solids. Denies nausea, vomiting, pyrosis, early satiety, abdominal pain, diarrhea, constipation, or changes in stool consistency or caliber. Denies coffee-ground emesis, hematemesis, hematochezia, or melanotic stools. right sided nephrostomy tube GENITOURINARY: Denies frequency, urgency, nocturia, hematuria or incontinence (Storage/Irritative symptoms.) Low urinary stream, straining to void, urinary intermittency or hesitancy, splitting of the voiding stream, terminal dribbling. ENDOCRINOLOGIC: Denies polyuria, polydipsia, polyphagia or heat/cold intolerances. HEMATOLOGIC: Denies thrombophilia/previous clots, or coagulopathy/bleeding diso rders. ONCOLOGIC: Denies personal history of malignancy. DERMATOLOGIC: Denies rashes or pruritus. PSYCHIATRIC: Denies any suicidal or homicidal ideation. Denies hallucinations. PHYSICAL EXAM GENERAL APPEARANCE: The patient is awake, alert, and oriented, in no acute cardiopulmonary distress. NEUROLOGICAL: Cranial nerves II-XII grossly intact. Motor is 5/5 in bilateral upper and lower extremities proximal to distal. No sensory deficits. HEENT: Face is symmetric. Pupils are equal and reactive. Extraocular movements are intact. NECK: Supple. No JVD. No thyromegaly. No submental, submandibular, pre- /postauricular, occipital or supraclavicular lymphadenopathy. CHEST: Normal chest expansion. No Telemetry. LUNGS: Absence of any rales, rhonchi or any wheezing. CARDIOVASCULAR: Regular. S1 and S2 normal. No appreciable rubs, murmurs or gallops. ABDOMEN: Soft, nontender, and nondistended. There is no rebound, voluntary guarding, or rigidity. : Deferred. No Osorio. colostomy site EXTREMITIES: Non-edematous and not cyanotic. No clubbing. Good capillary refill. SKIN: No skin breakdown. Vital Signs (last 8hr) Date Time Temp Pulse Resp B/P (MAP) Pulse Ox O2 Delivery O2 Flow Rate FiO2 08/29/24 08:02 98.4 82 18 131/58 98 Room Air 08/29/24 04:11 98.8 90 19 132/83 100 Room Air LABS: Laboratory: Test 08/29/24 05:56 08/28/24 05:34 08/27/24 11:25 Range/Units White Blood Count 7.2 4.8-10.8 K/uL Red Blood Count 4.08 4.00-5.50 MIL/uL Hemoglobin 12.8 12.0-16.0 g/dL Hematocrit 38.2 36-48 % Mean Corpuscular Volume 93.6 79-99 fL Mean Corpuscular Hemoglobin 31.4 27.0-33.0 pg Mean Corpuscular Hemoglobin Concent 33.5 32.0-36.0 g/dL Red Cell Distribution Width 12.5 11.0-15.5 % Platelet Count 201 130-400 K/uL Mean Platelet Volume 9.0 7.5-10.5 fL Nucleated Red Blood Cells 0.0 0.0-0.19 % Sodium Level 142 136-145 mmol/L Potassium Level 4.4 3.5-5.1 mmol/L Chloride Level 103 101-111 mmol/L Carbon Dioxide Level 28 21-32 mmol/L Blood Urea Nitrogen 17 7-18 mg/dL Creatinine 1.7 H 0.5-1.0 mg/dL Glomerular Filtration Rate Calc 31 >90 mL/min Random Glucose 79 70-105 mg/dL Total Calcium 9.4 8.5-10.1 mg/dL Phosphorus Level 4.7 2.5-4.9 mg/dL Magnesium Level 2.00 1.80-2.40 mg/dL Immature Granulocyte % (Auto) 0.2 0-1 % Neutrophils (%) (Auto) 56.8 40.0-77.0 % Lymphocytes (%) (Auto) 27.2 21.0-51.0 % Monocytes (%) (Auto) 12.3 3.0-13.0 % Eosinophils (%) (Auto) 3.3 0.0-8.0 % Basophils (%) (Auto) 0.2 0.0-5.0 % Neutrophils # (Auto) 3.4 1.8-7.7 K/uL Lymphocytes # (Auto) 1.6 1.0-4.8 K/uL Monocytes # (Auto) 0.7 0.1-1.0 K/uL Eosinophils # (Auto) 0.20 0.00-0.70 K/uL Basophils # (Auto) 0.01 0.00-0.20 K/uL Absolute Immature Granulocyte (auto 0.01 0-1 K/uL Uric Acid 5.8 2.6-7.2 mg/dL Vitamin B12 Level 4466 H 193-986 pg/mL Vitamin D 25-Hydroxy 20.0 30.0-100.0 ng/mL Current Medications Medications (Trade) Dose Ordered Sig/Rey Route PRN Reason Start Time Stop Time Status Last Admin Dose Admin Acetaminophen (TYLenol 325MG TAB) 650 mg Q4H PRN PO TEMPERATURE GREATER THAN 101.5 08/26/24 15:30 09/25/24 15:29 Acetaminophen/ Codeine Phosphate (TYLenol-coDEINE TAB) 1 tab Q4H PRN PO MODERATE PAIN (4-6) 08/26/24 16:00 09/25/24 15:59 Duloxetine HCl (CymbALTA 30 mg CAP) 30 mg DAILY PO 08/27/24 09:00 09/26/24 08:59 Famotidine (Pepcid 20mg Vial) 20 mg BID IV 08/26/24 21:00 08/26/24 23:04 DC 08/26/24 20:35 20 MG Lactated Ringer's 1,000 ml @ 75 mls/hr [id number] IV 08/26/24 15:30 09/25/24 15:29 08/27/24 18:02 75 MLS/HR Magnesium Sulfate 50 ml @ 0 mls/hr PROTOCOL PRN IV low mag level 08/26/24 16:00 09/25/24 15:59 Ondansetron HCl (zoFRAN 4MG INJ) 4 mg Q6H PRN IVP NAUSEA/VOMITING 08/26/24 15:30 09/25/24 15:29 Pantoprazole Sodium (PROTonix 40MG TAB) 40 mg DAILY PO 08/27/24 09:00 09/26/24 08:59 Pharmacy Profile Note (Pharmacy Communication) 1 each AD MISC 08/27/24 11:30 08/27/24 11:07 DC Potassium Chloride 100 ml @ 50 mls/hr AD PRN IV POTASSIUM PROTOCOL 08/26/24 16:00 09/25/24 15:59 Simethicone (Mylicon) 125 mg PCHS PO 08/27/24 09:00 09/26/24 08:59 08/28/24 20:50 125 MG Vitamin B Complex/ Vit C/Folic Acid (Nephrovite Tablet) 1 cap DAILY PO 08/27/24 09:00 09/26/24 08:59 DIAGNOSTICS / RADIOLOGY: [ ] Assessment: Acute dehydration POA ROBBIN ATN POA Failure to thrive POA chronic problems: Kidney stone status post nephrostomy tube colon cancer PLAN Patient continued to be admitted, she is NPO awaiting for colonoscopy Continue with IV fluids Continue to monitor kidney functions GI and DVT prophylaxis Disposition: Home, currently awaiting for colonoscopy. Once diet is tolerated post colonoscopy, patient can probably be discharged home. Instructed to follow up with PCP in 2-3 days. Follow-up with hasher machine operator in one week. Follow up with tongue binder in one week Patient was seen and examined with Dr. Jerome, above was formulated ATTESTATION BY PHYSICIAN I have seen and examined the patient. I reviewed the documentation, medical decision making, and treatment plan as noted by the mid-level provider above. I agree with the findings and plan of care. KWAME JEROME MD, [facility] Aug 29, 2024 09:10
--- NOTE | 2024-08-29 14:43 | PN ---
NEPHROLOGY PROGRESS NOTE Date/Time Patient Seen: Aug 29, 2024 SUBJECTIVE: This is a 73-year-old female with a past medical history of metastatic rectal carcinoma, diverticulosis, history of colostomy, ESBL UTI hypertension, UTI, depression, and bilateral hydroureteronephrosis with bilateral nephrostomy tube placement, and hypertension. Patient presented to the emergency room with complaints of dehydration She has a history of symptomatic dehydration post bowel prep. She was scheduled for colonoscopy with Dr. Meneses. She was admitted further evaluation and management of dehydration. She was noted to have elevated BUN/creatinine We are consulted for renal failure. Renal function and electrolytes are stable. Colonoscopy rescheduled for due to poor prep. Pending repeat colonoscopy today with Dr. Meneses She was seen in the medical floor, in no acute distress No family at the bedside Prognosis remains guarded REVIEW OF SYSTEMS: GENERAL: Positive for generalized weakness NEUROLOGIC: Negative for any blurry vision, blind spots, double vision, facial asymmetry, dysphagia, dysarthria, hemiparesis, hemisensory deficits, vertigo, ataxia. HEENT: Negative for any head trauma, neck trauma, neck stiffness, photophobia, phonophobia, sinusitis, rhinitis. CARDIAC: Negative for any chest pain, dyspnea on exertion, paroxysmal nocturnal dyspnea, peripheral edema. PULMONARY: Negative for any shortness of breath, wheezing, COPD, or TB exposure. GASTROINTESTINAL: Negative for any abdominal pain, nausea, vomiting, bright red blood per rectum, melena. GENITOURINARY: Negative for any dysuria, hematuria, incontinence. INTEGUMENTARY: Negative for any rashes, cuts, insect bites. RHEUMATOLOGIC: Negative for any joint pains, photosensitive rashes, history of vasculitis or kidney problems. HEMATOLOGIC: Negative for any abnormal bruising, frequent infections or b leeding. Vital Signs (last 8hr) Date Time Temp Pulse Resp B/P (MAP) Pulse Ox O2 Delivery O2 Flow Rate FiO2 08/28/24 14:48 97.5 80 15 122/66 99 Room Air 08/28/24 14:43 82 16 118/64 99 Room Air 08/28/24 14:38 84 16 121/62 100 Room Air 08/28/24 14:33 82 16 123/64 100 Room Air 08/28/24 14:28 83 17 121/65 100 Nonrebreathing Mask 10.0 08/28/24 14:23 84 17 110/59 100 Nonrebreathing Mask 10.0 08/28/24 14:18 97.3 87 16 110/56 100 Nonrebreathing Mask 10.0 08/28/24 13:50 97.0 89 16 139/66 100 mask 10.0 08/28/24 13:50 Mask 08/28/24 13:50 Mask 10.0 08/28/24 12:00 98.4 77 18 127/74 95 Room Air 08/28/24 08:00 98.8 71 19 117/62 98 Room Air 08/28/24 08:00 98 Room Air* 0 21 PHYSICAL EXAM: GENERAL: Alert and oriented x 3. No acute distress. Well-nourished. EYES: EOMI. Anicteric. HENT: Moist mucous membranes. No scleral icterus. No cervical lymphadenopathy. LUNGS: Clear to auscultation bilaterally. No accessory muscle use. CARDIOVASCULAR: Regular rate and rhythm. No murmur. No JVD. ABDOMEN: Soft, non-tender and non-distended. No palpable masses. EXTREMITIES: No edema. Non-tender.?SKIN: No rashes or lesions. Warm. NEUROLOGIC: No focal neurological deficits. CN II-XII grossly intact, but not individually tested. PSYCHIATRIC: Cooperative. Appropriate mood and affect. Current Medications Medications (Trade) Dose Ordered Sig/Rey Route PRN Reason Start Time Stop Time Status Last Admin Dose Admin Acetaminophen (TYLenol 325MG TAB) 650 mg Q4H PRN PO TEMPERATURE GREATER THAN 101.5 08/26/24 15:30 09/25/24 15:29 Acetaminophen/ Codeine Phosphate (TYLenol-coDEINE TAB) 1 tab Q4H PRN PO MODERATE PAIN (4-6) 08/26/24 16:00 09/25/24 15:59 Duloxetine HCl (CymbALTA 30 mg CAP) 30 mg DAILY PO 08/27/24 09:00 09/26/24 08:59 Famotidine (Pepcid 20mg Vial) 20 mg BID IV 08/26/24 21:00 08/26/24 23:04 DC 08/26/24 20:35 20 MG Lactated Ringer's 1,000 ml @ 75 mls/hr [id number] IV 08/26/24 15:30 09/25/24 15:29 08/27/24 18:02 75 MLS/HR Magnesium Sulfate 50 ml @ 0 mls/hr PROTOCOL PRN IV low mag level 08/26/24 16:00 09/25/24 15:59 Ondansetron HCl (zoFRAN 4MG INJ) 4 mg Q6H PRN IVP NAUSEA/VOMITING 08/26/24 15:30 09/25/24 15:29 Pantoprazole Sodium (PROTonix 40MG TAB) 40 mg DAILY PO 08/27/24 09:00 09/26/24 08:59 Pharmacy Profile Note (Pharmacy Communication) 1 each AD MISC 08/27/24 11:30 08/27/24 11:07 DC Potassium Chloride 100 ml @ 50 mls/hr AD PRN IV POTASSIUM PROTOCOL 08/26/24 16:00 09/25/24 15:59 Simethicone (Mylicon) 125 mg PCHS PO 08/27/24 09:00 09/26/24 08:59 08/27/24 21:36 125 MG Vitamin B Complex/ Vit C/Folic Acid (Nephrovite Tablet) 1 cap DAILY PO 08/27/24 09:00 09/26/24 08:59 LABORATORY: [ ] Hematology Labs: Test 08/29/24 05:56 08/28/24 05:34 Range/Units White Blood Count 7.2 4.8-10.8 K/uL Red Blood Count 4.08 4.00-5.50 MIL/uL Hemoglobin 12.8 12.0-16.0 g/dL Hematocrit 38.2 36-48 % Mean Corpuscular Volume 93.6 79-99 fL Mean Corpuscular Hemoglobin 31.4 27.0-33.0 pg Mean Corpuscular Hemoglobin Concent 33.5 32.0-36.0 g/dL Red Cell Distribution Width 12.5 11.0-15.5 % Platelet Count 201 130-400 K/uL Mean Platelet Volume 9.0 7.5-10.5 fL Nucleated Red Blood Cells 0.0 0.0-0.19 % Immature Granulocyte % (Auto) 0.2 0-1 % Neutrophils (%) (Auto) 56.8 40.0-77.0 % Lymphocytes (%) (Auto) 27.2 21.0-51.0 % Monocytes (%) (Auto) 12.3 3.0-13.0 % Eosinophils (%) (Auto) 3.3 0.0-8.0 % Basophils (%) (Auto) 0.2 0.0-5.0 % Neutrophils # (Auto) 3.4 1.8-7.7 K/uL Lymphocytes # (Auto) 1.6 1.0-4.8 K/uL Monocytes # (Auto) 0.7 0.1-1.0 K/uL Eosinophils # (Auto) 0.20 0.00-0.70 K/uL Basophils # (Auto) 0.01 0.00-0.20 K/uL Absolute Immature Granulocyte (auto 0.01 0-1 K/uL Chemistry Labs: Test 08/29/24 05:56 08/28/24 05:34 Range/Units Sodium Level 142 136-145 mmol/L Potassium Level 4.4 3.5-5.1 mmol/L Chloride Level 103 101-111 mmol/L Carbon Dioxide Level 28 21-32 mmol/L Blood Urea Nitrogen 17 7-18 mg/dL Creatinine 1.7 H 0.5-1.0 mg/dL Glomerular Filtration Rate Calc 31 >90 mL/min Random Glucose 79 70-105 mg/dL Total Calcium 9.4 8.5-10.1 mg/dL Phosphorus Level 4.7 2.5-4.9 mg/dL Magnesium Level 2.00 1.80-2.40 mg/dL Uric Acid 5.8 2.6-7.2 mg/dL DIAGNOSTICS / RADIOLOGY: ASSESSMENT: Acute on chronic kidney failure Acute dehydration Failure to thrive Hypertension Right nephrostomy tube placement History of left ureteral stent placement History of complicated UTI with history of ESBL infection History of rectal carcinoma History of colostomy PLAN: Labs, diagnostic, radiologic exams reviewed and interpreted by myself and supervising physician. We have reviewed external records in detail Pending colonoscopy later today. Require close monitoring of renal function and electrolytes Order CBC, CMP, and electrolytes in am BiPAP as necessary, for respiratory distress Monitor blood pressure adjust medication doses as needed Avoid hypotensive episodes May use Dilaudid 0.5 mg IV every 6 hours as needed for severe pain Monitor blood sugars Strict intake, output, and daily weight should be monitored Please renally adjust medications Avoid nephrotoxic and nonsteroidal drugs Avoid contrast if possible Will continue to monitor renal function, anemia, electrolytes Treatment plan discussed with patient Questions were answered We have discussed with the other team physicians in detail about the care plan We will continue to monitor the patient closely ATTESTATION BY PHYSICIAN I have seen and examined the patient. I reviewed the documentation, medical decision making, and treatment plan as noted by the mid-level provider above. I agree with the findings and plan of care. MELISSA JENNINGS MD, [facility] Aug 29, 2024 14:43
--- NOTE | 2024-08-29 17:32 | NUR ---
DISCHARGE PIV DC'D DISCHARGE INSTRUCTIONS PROVIDED PATIENT AWARE OF FOLLOW UP APPOINTMENT ALL QUESTIONS ANSWERED PRIOR TO DISCHARGE
== END 2024-08-29 17:40 | disposition home or self-care (01) ==
LOC: EDH 12:01 → DIRECT 12:02 → INTOOBSV 12:02 → UNDOADMIN 15:06 → EDHIP 15:06 → 3DH 20:37
PROVIDERS: ADMIT Internal Medicine; ATTEND Internal Medicine
DX: N17.0 Acute kidney failure with tubular necrosis (principal); I12.9 Hypertensive chronic kidney disease with stage 1 through stage 4 chronic kidney disease, or unspecified chronic kidney disease; N18.9 Chronic kidney disease, unspecified; E86.0 Dehydration; R62.7 Adult failure to thrive; N13.2 Hydronephrosis with renal and ureteral calculous obstruction; D63.1 Anemia in chronic kidney disease; K57.92 Diverticulitis of intestine, part unspecified, without perforation or abscess without bleeding; C20 Malignant neoplasm of rectum; K56.609 Unspecified intestinal obstruction, unspecified as to partial versus complete obstruction; F32.A Depression, unspecified; Z12.11 Encounter for screening for malignant neoplasm of colon; Z85.038 Personal history of other malignant neoplasm of large intestine; Z85.048 Personal history of other malignant neoplasm of rectum, rectosigmoid junction, and anus; Z85.528 Personal history of other malignant neoplasm of kidney; Z86.19 Personal history of other infectious and parasitic diseases; Z92.21 Personal history of antineoplastic chemotherapy; Z92.3 Personal history of irradiation; Z88.5 Allergy status to narcotic agent; Z93.3 Colostomy status; Z79.899 Other long term (current) drug therapy
CPT/HCPCS: 96374; 99284; 82550; 80048 ×3; 85025 ×3; 36415 ×4; 93005; 83735 ×2; 80053; 82306; 82607; 84100 ×2; 84550; 44388 ×2; 85027; J3490; G0378 ×48; J2003; J2704; A4620 ×2; A4215 ×2; A4223 ×2; A4222 ×2; J7030; A4606 ×2; A4657

== ENCOUNTER 2024-11-13 09:41 | Day surgery (SDC) | payer OTHER ==
[2024-11-11 12:04] VITALS: BP 140/66; PULSE 77; RESP 18; TEMP 97.9
[2024-11-11 12:15] LABS: BASOPHILS # (AUTO) 0.01 K/uL (0.00-0.20); BASOPHILS % (AUTO) 0.2 % (0.0-5.0); EOSINOPHILS # (AUTO) 0.13 K/uL (0.00-0.70); EOSINOPHILS % (AUTO) 2.1 % (0.0-8.0); HEMATOCRIT 37.5 % (36-48); IMMATURE GRANULOCYTE ABSOLUTE 0.01 K/uL (0-1); LYMPHOCYTES # (AUTO) 1.7 K/uL (1.0-4.8); LYMPHOCYTES % (AUTO) 27.4 % (21.0-51.0); MEAN CORPUSCULAR HEMOGLOBIN 31.4 pg (27.0-33.0); MEAN CORPUSCULAR HGB CONC 33.1 g/dL (32.0-36.0); MEAN CORPUSCULAR VOLUME 94.9 fL (79-99); MONOCYTES # (AUTO) 0.5 K/uL (0.1-1.0); MONOCYTES % (AUTO) 8.3 % (3.0-13.0); NEUTROPHILS # (AUTO) 3.8 K/uL (1.8-7.7); NEUTROPHILS % (AUTO) 61.8 % (40.0-77.0); PLATELET COUNT (AUTO) 186 K/uL (130-400); RED BLOOD CELL COUNT(AUTO) 3.95 MIL/uL (4.00-5.50); RED CELL DISTRIBUTION WIDTH 12.5 % (11.0-15.5); WHITE BLOOD COUNT (AUTO) 6.1 K/uL (4.8-10.8)
[2024-11-11 12:31] LABS: INR 0.94 (0.85-1.15); PROTHROMBIN TIME 10.6 SEC (9.6-11.6)
[2024-11-11 12:33] LABS: PARTIAL THROMBOPLASTIN TIME 28.9 SEC (26.3-35.5)
[2024-11-11 12:47] LABS: CREATININE 1.7 mg/dL (0.5-1.0); POTASSIUM 4.6 mmol/L (3.5-5.1)
[~2024-11-13] VITALS: Ht 152.4 cm; Wt 57.6 kg
[2024-11-13 09:52] VITALS: BP 165/93; PULSE 80; RESP 16; TEMP 98
[2024-11-13] MEDS: 0.9%NACL 1000ML 1,000 ML IV SCH (10:12)
--- NOTE | 2024-11-13 11:49 | NUR ---
NOTES DRAINED URINE INTO URINAL FROM PORT. 100CC OF CLEAR YELLOW URINE DRAINED FROM NEPHROSTOMY TUBE.
[2024-11-13] MEDS ORDERED: LIDOCAINE HCL 400MG/20ML VIAL ONE (12:13)
[2024-11-13] MEDS ORDERED: FENTanyl CITRate PF 50 MCG/1 ML 2ML VIAL ONE (12:13)
[2024-11-13] MEDS ORDERED: HEParin-NS 1,000 UNIT/500 ML 500 ML IV ONE (12:14)
[2024-11-13] MEDS ORDERED: MIDAZOLAM HCL 1 MG/ML 2ML VIAL ONE (12:14)
[2024-11-13] MEDS ORDERED: IOHEXOL-350 50ML VIAL IV ONE (12:14)
[2024-11-13 12:50] VITALS: BP 125/74; PULSE 83; RESP 14; TEMP 98
--- NOTE | 2024-11-13 12:56 | PRN ---
BLOOD SPLATTER ANALYST PROCEDURE REQUEST EXCHANGE OF RIGHT NEPHROSTOMY INDICATION: Chronic right hydronephrosis. FINDINGS: Previously placed right nephrostomy tube is patent and in good position. PROCEDURE: Informed consent obtained from patient following explanation of risk, benefits, complications. Timeout performed by attending nursing staff. Right flank and previously placed right nephrostomy tube were prepped and draped in sterile fashion with patient in prone position on procedure table. Local anesthesia performed with 5 mL of 1% lidocaine subcutaneous. Contrast media injection demonstrates the nephrostomy to be in good position. The 8.5 [place] nephrostomy tube was exchanged over guidewire for a new 8.5 [place] APDL catheter. Contrast media injection confirms good positioning without evidence of extravasation. Catheter secured to the skin with retention suture and sterile dressing. External drainage bag attached. Patient tolerated procedure well without evidence of complication. Total fluoroscopic time: 1.2 minutes. Estimated blood loss: 0. IMPRESSION: Exchange of 8.5 [place] right APDL nephrostomy tube. STEPHANIE TENA DO Nov 13, 2024 12:56
--- NOTE | 2024-11-13 12:59 | HMCIMG ---
CHARTER COACH DRIVER PROCEDURE REQUEST EXCHANGE OF RIGHT NEPHROSTOMY INDICATION: Chronic right hydronephrosis. FINDINGS: Previously placed right nephrostomy tube is patent and in good position. PROCEDURE: Informed consent obtained from patient following explanation of risk, benefits, complications. Timeout performed by attending nursing staff. Right flank and previously placed right nephrostomy tube were prepped and draped in sterile fashion with patient in prone position on procedure table. Local anesthesia performed with 5 mL of 1% lidocaine subcutaneous. Contrast media injection demonstrates the nephrostomy to be in good position. The 8.5 [place] nephrostomy tube was exchanged over guidewire for a new 8.5 [place] APDL catheter. Contrast media injection confirms good positioning without evidence of extravasation. Catheter secured to the skin with retention suture and sterile dressing. External drainage bag attached. Patient tolerated procedure well without evidence of complication. Total fluoroscopic time: 1.2 minutes. Estimated blood loss: 0. IMPRESSION: Exchange of 8.5 [place] right APDL nephrostomy tube.
[2024-11-13 13:05] VITALS: BP 128/88; PULSE 89; RESP 14
[2024-11-13 13:23] VITALS: BP 104/81; PULSE 84; RESP 14; TEMP 98
== END 2024-11-13 13:22 | disposition home or self-care (01) ==
LOC: DAH 09:41
PROVIDERS: ATTEND Urology
DX: N13.2 Hydronephrosis with renal and ureteral calculous obstruction (principal); E66.9 Obesity, unspecified; L29.9 Pruritus, unspecified; N18.32 Chronic kidney disease, stage 3b; Z93.6 Other artificial openings of urinary tract status; Z88.8 Allergy status to other drugs, medicaments and biological substances; Z68.25 Body mass index [BMI] 25.0-25.9, adult; Z85.038 Personal history of other malignant neoplasm of large intestine; Z79.899 Other long term (current) drug therapy; Z79.01 Long term (current) use of anticoagulants; Z98.890 Other specified postprocedural states
CPT/HCPCS: 80048; 85025; 85610; 85730; 36415; 50435; C1729; C1769; J3490; J7030; J2250; J1644; Q9967; A4215; A4222; A4221; A4663; A4216; A4606; A4223 ×3; 99156; J3010